=== PATIENT | female | born 1955 | race American Indian/Alaskan Native ===

== ENCOUNTER 2016-09-24 12:40 | Inpatient (IN) | payer BC ==
[2016-09-24 13:04] LABS: ADD MANUAL DIFF? NO
[2016-09-24] MEDS ORDERED: Insulin Regular 1 UNITS/0.01 ML ML IVP STA (13:15)
[2016-09-24 13:22] LABS: BASO # 0.01 K/mm3 (0.0-2.0); BASO % 0.1 % (0.0-3.0); GRAN % 85.3 % (50.0-68.0); HEMATOCRIT 43.2 % (36.0-48.0); LYMPH # 0.7 (1.2-3.4); LYMPH % 6.6 % (22.0-35.0); MEAN CELL VOLUME 97.1 fL (80.0-105.0); MEAN CORPUSCULAR HEMOGLOBIN 26.7 pg (25.0-35.0); MEAN CORPUSCULAR HGB CONC 27.5 g/dl (31.0-37.0); MONO # 0.8 (0.1-0.6); PLATELET COUNT 206 10^3/uL (120.0-450.0); RED CELL DISTRIBUTION WIDTH 17.8 % (11.5-14.5); WHITE BLOOD COUNT 10.4 10^3/ul (4.5-11.0)
[2016-09-24 13:25] LABS: ALB/GLOB RATIO 0.7 (1.1-1.8); BILIRUBIN,TOTAL 0.9 mg/dL (0.2-1.3); TOTAL PROTEIN 8.2 g/dL (5.8-8.3)
[2016-09-24 13:26] LABS: VENOUS BLOOD PH 7.06 (7.32-7.43)
[2016-09-24 13:26] LABS: INR 1.13 (0.93-1.08); PARTIAL THROMBOPLASTIN TIME 22.2 Seconds (23.7-30.8)
[2016-09-24] MEDS ORDERED: Sodium Bicarbonate (8.4%) 50 Meq Syringe IVP ONE (13:28)
--- NOTE | 2016-09-24 13:28 | RAD ---
PROCEDURE: Chest portable HISTORY: Sepsis Patient COMPARISON: None TECHNIQUE: Technique: Single view portable semi erect @ 13:12. FINDINGS: Low-lying endotracheal tube in the right mainstem bronchus. This should be retracted 5 cm for optimal placement. Volume loss/ atelectasis noted in the left lung. The right lung is hyperinflated. IMPRESSION: Low lying endotracheal tube. Communication of results: I discussed the findings directly with Dr. Gonzalez at the time of this interpretation 13:26.
[2016-09-24] MEDS ORDERED: Vancomycin 1gm in NS 250ml 250 ML IVPB STA (13:32)
[2016-09-24] MEDS ORDERED: Cefepime IV 2 gm in NS 100 ML IVPB STA (13:33)
[2016-09-24 13:39] LABS: TROPONIN I 0.06 ng/mL
[2016-09-24 13:53] LABS: POTASSIUM 7.7 mmol/L (3.6-5.0)
--- NOTE | 2016-09-24 13:55 | ED PDOC ---
Arrival/HPI - General Chief Complaint: Altered Mental Status Time Seen by Provider: 09/24/16 13:01 Historian: Patient - History of Present Illness Narrative History of Present Illness (Text): 09/24/16 13:30 Kaylee Vogt is a 61 year old female brought in by EMS, whose past medical history includes diabetes, hypertension, and LE venous stasis ulcers (Other hx is unknown), who presents to the emergency room unresponsive prior to arrival. Patient responds minimally to sternal rub. According to family, they have not heard from patient in 3 days and when they tried to see her today but she did not respond or open door. The door was broken down and patient was found unresponsive, EMS placed nasal trumpet in patient and found her finger stick to be greater than 600. EMS placed in left humerus IO line with IV fluids starting. No additional history known. PMD: unknown Time/Duration: Prior to Arrival Symptom Course: Unchanged Modifying Factors (Text): None Context: Home Past Medical History - Provider Review Nursing Documentation Reviewed: Yes - Psychiatric Hx Substance Use: No Family/Social History - Physician Review Nursing Documentation Reviewed: Yes Family/Social History: No Known Family HX Smoking Status: Unknown If Ever Smoked Hx Alcohol Use: No Hx Substance Use: No Allergies/Home Meds Allergies/Adverse Reactions: Allergies Unobtainable Allergy (Verified 09/24/16 12:41) Home Medications: Home Meds Medication Instructions Recorded Confirmed Unobtainable 09/24/16 09/24/16 Review of Systems - Review of Systems Systems not reviewed;Unavailable: Altered Mental Status Physical Exam Vital Signs Reviewed: Yes Vital Signs Temp Pulse Resp BP Pulse Ox 09/24/16 13:33 100.4 F H 09/24/16 12:44 160 H 10 L 126/81 98 Temperature: Febrile (100.4 rectal) Blood Pressure: Normal Pulse: Tachycardic Respiratory Rate: Agonal Appearance: Positive for: Ill-Appearing Mental Status: No: Alert and Oriented X 3 (Unresponsive) Finger Stick Blood Glucose: 500 - Systems Exam Head: Present: Atraumatic, Normocephalic Pupils: Present: Other (Right: 3mm, reactive Left: 4mm, reactive but sluggish) Conjunctiva: Present: Normal Mouth: Present: Dry (with vomitous material present), Other (vomitus material in posterior oropharynx on intubation) Pharnyx: No: ERYTHEMA Respiratory/Chest: Present: Decreased Breath Sounds (bilateral but equal) Cardiovascular: Present: Normal S1, S2, Tachycardic Abdomen: Present: Distention (mildly distended). No: Tenderness Lower Extremity: Present: Edema (bilateral edema with venous stasis changes), Other (superficial ulcers on bilateral anterior tibial areas) Neurological: Present: Other (GCS is 6; patient with L upper extremity twitching with possible LUE decorticate posturing). No: Speech Normal Skin: Present: Warm, Dry, Normal Color. No: Rashes Medical Decision Making ED Course and Treatment: 09/24/16 Impression: 61 year old female presents to the emergency room unresponsive prior to arrival. Differential Diagnosis included but are not limited to: DKA vs. hyperosmolar nonketotic coma vs. Sepsis vs. central neurologic event. Plan: -- EKG -- Chest, Abdomen, Pelvis CT -- Head CT w/o contrast -- VBG, Blood Culture -- Urine Culture, Urinalysis -- Labs -- Calcium Gluconate, Heparin, Humulin, Keppra, Maxipime, Diprivan, Protonix, Vancomycin -- IV Fluids -- Reassess and disposition Progress Notes: Patient brought in unresponsive and unstable - BP as low as 59/32 in the ED with very high fingerstick and dehydrated. Patient intubated given for airway protection, using Glidescope; R femoral line placed for access. Aggressive hydration started with much improvement and stabilization of blood pressure. Spoke with family to obatin additional info but unfortunately history is limited. Patient also given insulin for elevated glucose and likely hyperkalemia. Code sepsis called at 1:28 pm for elevated lactic acid (and fever , tachycardia). Given 2 amps of HCO3. 09/24/2016 13:[address] Logan for admission to hospital service. 09/24/2016 13:[address] Del Cid for admission to ICU. 09/24/16 14:42 Patient with multiple noted electrolyte abnormalities and acidosis. CT results are pending - patient will be admitted to the ICU. - Lab Interpretations Lab Results: 09/24/16 13:03 09/24/16 13:03 Lab Results 09/24/16 13:21: pO2 54, VBG pH 7.06 L*, VBG pCO2 46.0, VBG HCO3 13.0 L, VBG Total CO2 14.4 L, VBG O2 Sat (Calc) 87.6 H, VBG Base Excess -17.0 L, VBG Potassium 6.4 H*, Sodium 137.0, Chloride 104.0, Glucose > 750 H*, Lactate 3.7 H , FiO2 21.0, Venous Blood Potassium 6.4 H* 09/24/16 13:10: PT 12.2 H, INR 1.13 H, APTT 22.2 L, Phosphorus 9.1 H, Magnesium 3.3 H, Direct Bilirubin 0.9 H, Lactate Dehydrogenase 738 H, Total Creatine Kinase 4348 H, CK-MB (CK-2) 18.1 H, CK-MB (CK-2) % 0.4 L, Troponin I 0.06, NT- Pro-B Natriuret Pep 1840 H, Lipase 1654 H, Alcohol, Quantitative < 10 09/24/16 13:03: WBC 10.4, RBC 4.45, Hgb 11.9 L, Hct 43.2, MCV 97.1, MCH 26.7, MCHC 27.5 L, RDW 17.8 H, Plt Count 206, Gran % 85.3 H, Lymph % (Auto) 6.6 L, [place] % (Auto) 8.0 H, Eos % (Auto) 0.0 L, Baso % (Auto) 0.1, Gran # 8.90 H, Lymph # 0.7 L, [place] # 0.8 H, Eos # 0.0, Baso # 0.01, Sodium 138, Chloride 96 L, Potassium 7.7 H*, Carbon Dioxide 15 L, Anion Gap 35 H, BUN 92 H, Creatinine 7.1 H, Est GFR ( Amer) 7, Est GFR (Non-Af Amer) 6, Random Glucose 1399 H*, Calcium 8.0 L, Total Bilirubin 0.9, AST 42 H, ALT 11, Alkaline Phosphatase 120, Total Protein 8.2, Albumin 3.5, Globulin 4.7, Albumin/Globulin Ratio 0.7 L I have reviewed the lab results: Yes - RAD Interpretation Radiology Orders: 09/24/16 13:01 CHEST PORTABLE [RAD] Stat 09/24/16 13:08 Brain [HEAD W/O CONTRAST] [CT] Stat 09/24/16 13:31 CHEST,ABDOMEN, PELVIS W/O CONT [CT] Stat - EKG Interpretation EKG Interpretation (Text): 09/24/16 15:01 sinus tachycardia @ 158 with PVCs; normal axis, normal intervals, peaked T waves ; no old EKG for comparison - Medication Orders Current Medication Orders: Heparin Sodium (Porcine) (Heparin) 5,000 units SC Q8H EMETERIO PRN Reason: Protocol Vancomycin HCl (Vancomycin 1gm) 250 mls @ 133.333 mls/hr IVPB STAT STA PRN Reason: Protocol Stop: 09/24/16 15:24 Last Admin: 09/24/16 13:52 Dose: 133.333 MLS/HR eMAR Start Stop Document 09/24/16 13:52 [facility] (Rec: 09/24/16 13:52 [facility] [id number]) Intravenous Solution Start Date 09/24/16 Start Time 13:52 End Date 09/24/16 End time 15:32 Total Infusion Time 100 Cefepime HCl (Maxipime 2gm) 100 mls @ 100 mls/hr IVPB STAT STA PRN Reason: Protocol Stop: 09/24/16 14:32 Propofol (Diprivan) 100 mls @ 2.994 mls/hr IV .Q24H PRN; Protocol; 5 MCG/KG/MIN PRN Reason: TITRATE PER MD ORDER Insulin Human Regular 100 (units/ Sodium Chloride) 100 mls @ 4 mls/hr IV .Q24H PRN; Protocol; 4 UNITS/HR PRN Reason: TITRATE PER MD ORDER Sodium Chloride (Sodium Chloride 0.9%) 1,000 mls @ 200 mls/hr IV .Q5H EMETERIO Levetiracetam (Keppra 500mg Ivpb) 100 mls @ 400 mls/hr IVPB Q12 EMETERIO Cefepime HCl (Maxipime 1gm) 100 mls @ 100 mls/hr IVPB Q24H EMETERIO PRN Reason: Protocol Pantoprazole Sodium (Protonix Inj) 40 mg IVP DAILY EMETERIO Discontinued Medications Calcium Gluconate (Calcium Gluconate Iv) Confirm Administered Dose 1,000 mg .ROUTE .STK-MED ONE Stop: 09/24/16 13:37 Last Admin: 09/24/16 14:27 Dose: Calcium Gluconate 1,000 mg/ (Sodium Chloride) 110 mls @ 110 mls/hr IVPB ONCE ONE Stop: 09/24/16 14:29 Last Admin: 09/24/16 13:36 Dose: 110 MLS/HR eMAR Start Stop Document 09/24/16 13:36 [facility] (Rec: 09/24/16 13:37 [facility] [id number]) Intravenous Solution Start Date 09/24/16 Start Time 13:37 End Date 09/24/16 End time 14:40 Total Infusion Time 63 Insulin Human Regular (Humulin R) 10 units IVP ONCE STA Stop: 09/24/16 13:16 Last Admin: 09/24/16 13:29 Dose: 10 UNITS IVP Administration Document 09/24/16 13:29 (Rec: 09/24/16 13:29 [id number] Charges for Administration # of IVP Administrations 1 Sodium Bicarbonate (Sodium Bicarbonate (8.4%) 50 Meq Syringe) 100 meq IVP ONCE ONE Stop: 09/24/16 13:29 Last Admin: 09/24/16 13:36 Dose: 100 MEQ IVP Administration Document 09/24/16 13:36 [facility] (Rec: 09/24/16 13:36 [facility] [id number]) Charges for Administration # of IVP Administrations 1 - Scribe Statement The provider has reviewed the documentation as recorded by the Eze Whyte Provider Scribe Attestation: All medical record entries made by the Scribe were at my direction and personally dictated by me. I have reviewed the chart and agree that the record accurately reflects my personal performance of the history, physical exam, medical decision making, and the department course for this patient. I have also personally directed, reviewed, and agree with the discharge instructions and disposition. Disposition/Present on Arrival - Present on Arrival Any Indicators Present on Arrival: Yes History of DVT/PE: No History of Uncontrolled Diabetes: Yes Urinary Catheter: No History of Decub. Ulcer: No History Surgical Site Infection Following: None - Disposition Have Diagnosis and Disposition been Completed?: Yes Diagnosis: Hyperosmolar nonketotic coma in diabetes, Acidosis, Altered mental status, Sepsis, Renal failure, Rhabdomyolysis, Pancreatitis Disposition: HOSPITALIZED Disposition Time: 13:22 Patient Plan: Admission, ICU Patient Problems: Current Active Problems Problem Status Diagnosed Acidosis Acute Altered mental status Acute Hyperosmolar nonketotic coma in diabetes Acute Pancreatitis Acute Renal failure Acute Rhabdomyolysis Acute Sepsis Acute Condition: CRITICAL Endotracheal Intubation - Endotracheal Intubation Intubated With ETT Size: 7 (actually it is 7.5 but [employer] will not permit decimal placement) Blade Type Used: Curved Indication: Airway Protection Intubated: Orally Pre-Intubation Airway Assessment: Need For Airway management Did Not Allow Time , Appears To Have A difficult Airway Post-Intubation Assessment: ETT Secured AT (cm): (23), Breath Sounds Equal Bilat , Placement Confirmed Via CXR (Tube pulled back to 21 at the lip), Color Change W/End Tidal CO2 Detector, Oxygen Saturation: (100%) Central Line Placement - Central Line Placement Indication: Emergent IV Access Central Line Placement: Right: Femoral The Area Was Thoroughly Prepared With: Chlorhexidine Procedure: Triple Lumen, Placed Using Standard Seldinger Technique, Catheter Was Sewn Into Place, Sterile Dressing Placed Over Line, Procedure Tolerated Well (Central line was placed by resident Jerry Nunez under attending supervision.)
--- NOTE | 2016-09-24 14:03 | CP.PCM.HP ---
<CandeCarmen - Last Filed: 09/24/16 18:26> History of Present Illness - History of Present Illness History of Present Illness: PGY1- for Dr. Indira Rizzo&Isa Kaylee Vogt is a 61 year old female brought in by EMS, whose past medical history includes diabetes, CKD (not on HD), hypertension, and LE venous stasis ulcers, who presents to the emergency room unresponsive prior to arrival. According to family, 3 days ago, the pt communicated to family via phone that she did not feel well and her leg hurts which required her to take Advil(s). Since then, the family have not heard from patient for 3 days. The door was broken down and patient was found unresponsive sitting up on her couch. EMS placed nasal trumpet in patient and found her finger stick to be greater than 600. EMS placed in left humorous IO line with IV fluids starting. In the ED, Patient brought in unresponsive and unstable. BP was as low as 59/32 in the ED with very high fingerstick and dehydrated. Patient intubated given for airway protection, using Glidescope; R femoral line placed for access. Vomitous material present in posterior oropharynx on intubation. Aggressive hydration started with much improvement and stabilization of blood pressure. Keppra was also given in the ED. According to pt's pharmacist, who states that: Pt had many doctors Dr. Macario Paulino [phone] recent prescribe januvia 50 Qd in Apr 2016 but pt did not apple picker. Dr. Joseph Self prescribed her ferrous sulfide 325 BID, lipitor 10, Pt is also on ASA 81, Mg gluconate BID, multivitamins but her filling record has lapsed In ED, Pt has a temp 100.4, HR 160, Resp 10. One dose of vanco and cefepime was given VBG 7.06. Glucose 1399 K was 6.4, treated with insulin, ca++ She has an anion gap 27 CK 4348 trop 0.06 Lipase 1654 PMH Uncontrolled diabetes LE venous stasis ulcers CKD, not on dialysis HTN PSS Unkown [facility], 2016. 2 weeks stayed which required ICU but not intubated SH Per family, denied smoke/drink/drug Pt lives alone All Unknown Med ASA, ferrous sulfate Present on Admission - Present on Admission Any Indicators Present on Admission: Yes History of Uncontrolled Diabetes: Yes Past Patient History - Past Social History Smoking Status: Unknown If Ever Smoked - PSYCHIATRIC Hx Substance Use: No - SURGICAL HISTORY Hx Surgeries: (unable to obtain) Meds Allergies/Adverse Reactions: Allergies Allergy/AdvReac Type Severity Reaction Status Date / Time Unobtainable Allergy Verified 09/24/16 12:41 Physical Exam - Constitutional Additional comments: intubated - Head Exam Head Exam: ATRAUMATIC, NORMOCEPHALIC - Eye Exam Eye Exam: absent: PERRL (R eye reactive to light but L eye minimally reactive to light) - ENT Exam ENT Exam: Mucous Membranes Moist - Neck Exam Additional comments: supple - Respiratory Exam Respiratory Exam: Decreased Breath Sounds (No breath sound on L; bronchial breath sound on R, Intubated) - Cardiovascular Exam Cardiovascular Exam: REGULAR RHYTHM, +S1, +S2. absent: Systolic Murmur - GI/Abdominal Exam GI & Abdominal Exam: Soft - Extremities Exam Extremities exam: Positive for: pedal edema (3+ pitting. superficial ulcers on bilateral anterior tibial areas) - Neurological Exam Additional comments: Non responsive to pain - Skin Skin Exam: Dry Additional comments: Skin Cool to touch Results - Vital Signs Recent Vital Signs: Last Vital Signs Temp 100.4 F H 09/24/16 13:33 Pulse 160 H 09/24/16 12:44 Resp 10 L 09/24/16 12:44 BP 126/81 09/24/16 12:44 Pulse Ox 98 09/24/16 12:44 - Labs Result Diagrams: 09/24/16 13:03 09/24/16 15:30 Assessment & Plan - Assessment and Plan (Free Text) Plan: 61F with poorly controlled diabetes and CKD not on dialysis was brought in by EMS for altered mental status. AMS possibly due to DKA - IVF, Insulin drip, serial finger sticks, A1c, diabetes education ORI on CKD Sepsis - VBG lactate, blood/urine/wound culture, r/o aspiration pna, MRSA screen, procalc, cefepime. 1 dose vanco given Overdose - urine drug screen, blood alcohol level AR? - Repeat EKG no sig change, echocardiogram CVA - CT-head Post-ictal - EEG, neurol consult, Keppra ORI on CKD - IVF - Nephro - Ueos Corrected Na 169 - Urine electrolyes - Urine and serum osm Hx of IDDM-2 - A1C - Diabetic education Elevated Lipase Elevated LFT - Serial Lipase q8h - Abdominal U/S Rhabdomyolysis - IVF Ulcers b/l leg - wound care - if needed, surgery consult Heparin 500SC q8 S/R/D/w Dr. Jacobson - Date & Time Date: 09/24/16 Time: 16:49 <Sybil Jacobson MD - Last Filed: 09/25/16 10:39> Results - Vital Signs Recent Vital Signs: Last Vital Signs Temp 98 F 09/25/16 06:37 Pulse 109 H 09/25/16 09:01 Resp 25 H 09/25/16 00:00 BP 131/91 H 09/25/16 09:01 Pulse Ox 100 09/25/16 09:01 - Labs Result Diagrams: 09/25/16 05:05 09/25/16 05:05 Labs: Laboratory Results - last 24 hr 09/24/16 09/24/16 09/24/16 14:06 15:20 15:30 WBC RBC Hgb Hct MCV MCH MCHC RDW Plt Count MPV Gran % Lymph % (Auto) [place] % (Auto) Eos % (Auto) Baso % (Auto) Gran # Lymph # [place] # Eos # Baso # pCO2 pO2 47 HCO3 ABG pH ABG Total CO2 ABG O2 Saturation ABG Base Excess ABG Carboxyhemoglobin 2.6 H POC ABG HHb (Measured) 13.1 H ABG Methemoglobin 1.0 ABG Potassium VBG pH 7.14 L* VBG pCO2 47.0 VBG HCO3 16.0 L VBG Total CO2 17.4 L VBG O2 Sat (Calc) 86.4 H VBG Base Excess -12.7 L VBG Hgb O2 Saturation 83.3 L VBG Potassium 4.8 Hemoglobin 11.5 L Sodium 145 Chloride 106 Glucose > 750 H* Lactate 3.2 H Mechanical Rate FiO2 21.0 Tidal Volume PEEP Potassium 4.8 Carbon Dioxide 18 L Anion Gap 26 H BUN 89 H Creatinine 6.2 H Est GFR ( Amer) 8 Est GFR (Non-Af Amer) 7 POC Glucose (mg/dL) > 500 H* Random Glucose 1119 H* D Serum Osmolality Calcium 7.3 L Ammonia < 9 L Troponin I 0.05 C-React Prot High Sens > 15.00 H Lipase 2525 H Procalcitonin 2.28 H Arterial Blood Potassium Venous Blood Potassium 4.8 Urine Color Yellow Urine Appearance Clear Urine pH 6.0 Ur Specific [place] 1.015 Urine Protein Trace H Urine Glucose (UA) >=1000 Urine Ketones Negative Urine Blood Small H Urine Nitrate Negative Urine Bilirubin Negative Urine Urobilinogen 0.2 Ur Leukocyte Esterase Negative Urine RBC 0 - 2 Urine WBC 0 - 2 Ur Epithelial Cells 10 - 12 Urine Bacteria Few Urine Eosinophils Urine Osmolality Ur Random Sodium Ur Random Potassium Urine Opiates Screen Negative Urine Methadone Screen Negative Ur Barbiturates Screen Negative Ur Phencyclidine Scrn Negative Ur Amphetamines Screen Negative U Benzodiazepines Scrn Negative U Oth Cocaine Metabols Negative U Cannabinoids Screen Negative 09/24/16 09/24/16 09/24/16 16:00 16:23 17:00 WBC RBC Hgb Hct MCV MCH MCHC RDW Plt Count MPV Gran % Lymph % (Auto) [place] % (Auto) Eos % (Auto) Baso % (Auto) Gran # Lymph # [place] # Eos # Baso # pCO2 44 pO2 91.0 HCO3 15.7 L ABG pH 7.16 L* ABG Total CO2 17.1 L ABG O2 Saturation 98.0 ABG Base Excess -12.6 L ABG Carboxyhemoglobin POC ABG HHb (Measured) ABG Methemoglobin ABG Potassium 3.5 L VBG pH VBG pCO2 VBG HCO3 VBG Total CO2 VBG O2 Sat (Calc) VBG Base Excess VBG Hgb O2 Saturation VBG Potassium Hemoglobin Sodium 147.0 Chloride 115.0 H Glucose > 750 H* Lactate 2.8 H Mechanical Rate 16 FiO2 50.0 Tidal Volume 400 PEEP 5 Potassium Carbon Dioxide Anion Gap BUN Creatinine Est GFR ( Amer) Est GFR (Non-Af Amer) POC Glucose (mg/dL) > 500 H* Random Glucose Serum Osmolality 401 H Calcium Ammonia Troponin I C-React Prot High Sens Lipase Procalcitonin Arterial Blood Potassium 3.5 L Venous Blood Potassium Urine Color Urine Appearance Urine pH Ur Specific [place] Urine Protein Urine Glucose (UA) Urine Ketones Urine Blood Urine Nitrate Urine Bilirubin Urine Urobilinogen Ur Leukocyte Esterase Urine RBC Urine WBC Ur Epithelial Cells Urine Bacteria Urine Eosinophils Urine Osmolality Ur Random Sodium Ur Random Potassium Urine Opiates Screen Urine Methadone Screen Ur Barbiturates Screen Ur Phencyclidine Scrn Ur Amphetamines Screen U Benzodiazepines Scrn U Oth Cocaine Metabols U Cannabinoids Screen 09/24/16 09/24/16 09/24/16 17:07 18:00 18:10 WBC RBC Hgb Hct MCV MCH MCHC RDW Plt Count MPV Gran % Lymph % (Auto) [place] % (Auto) Eos % (Auto) Baso % (Auto) Gran # Lymph # [place] # Eos # Baso # pCO2 pO2 HCO3 ABG pH ABG Total CO2 ABG O2 Saturation ABG Base Excess ABG Carboxyhemoglobin POC ABG HHb (Measured) ABG Methemoglobin ABG Potassium VBG pH VBG pCO2 VBG HCO3 VBG Total CO2 VBG O2 Sat (Calc) VBG Base Excess VBG Hgb O2 Saturation VBG Potassium Hemoglobin Sodium Chloride Glucose Lactate Mechanical Rate FiO2 Tidal Volume PEEP Potassium Carbon Dioxide Anion Gap BUN Creatinine Est GFR ( Amer) Est GFR (Non-Af Amer) POC Glucose (mg/dL) 327 H > 500 H* Random Glucose Serum Osmolality Calcium Ammonia Troponin I C-React Prot High Sens Lipase Procalcitonin Arterial Blood Potassium Venous Blood Potassium Urine Color Urine Appearance Urine pH Ur Specific [place] Urine Protein Urine Glucose (UA) Urine Ketones Urine Blood Urine Nitrate Urine Bilirubin Urine Urobilinogen Ur Leukocyte Esterase Urine RBC Urine WBC Ur Epithelial Cells Urine Bacteria Urine Eosinophils Neg Urine Osmolality 443 Ur Random Sodium 23 Ur Random Potassium 31.6 Urine Opiates Screen Urine Methadone Screen Ur Barbiturates Screen Ur Phencyclidine Scrn Ur Amphetamines Screen U Benzodiazepines Scrn U Oth Cocaine Metabols U Cannabinoids Screen 09/24/16 09/24/16 09/24/16 19:18 20:23 20:45 WBC RBC Hgb Hct MCV MCH MCHC RDW Plt Count MPV Gran % Lymph % (Auto) [place] % (Auto) Eos % (Auto) Baso % (Auto) Gran # Lymph # [place] # Eos # Baso # pCO2 pO2 175 H HCO3 ABG pH ABG Total CO2 ABG O2 Saturation ABG Base Excess ABG Carboxyhemoglobin POC ABG HHb (Measured) ABG Methemoglobin ABG Potassium VBG pH 7.23 L VBG pCO2 42.0 VBG HCO3 17.6 L VBG Total CO2 18.9 L VBG O2 Sat (Calc) 99.0 H VBG Base Excess -9.6 L VBG Hgb O2 Saturation VBG Potassium 3.1 L Hemoglobin Sodium 152 H Chloride 116 H Glucose 550 H* D Lactate 4.8 H* Mechanical Rate FiO2 21.0 Tidal Volume PEEP Potassium 3.2 L Carbon Dioxide 20 L Anion Gap 19 BUN 90 H Creatinine 5.7 H Est GFR ( Amer) 9 Est GFR (Non-Af Amer) 8 POC Glucose (mg/dL) > 500 H* > 500 H* Random Glucose 529 H* D Serum Osmolality Calcium 7.6 L Ammonia Troponin I C-React Prot High Sens Lipase Procalcitonin Arterial Blood Potassium Venous Blood Potassium 3.1 L Urine Color Urine Appearance Urine pH Ur Specific [place] Urine Protein Urine Glucose (UA) Urine Ketones Urine Blood Urine Nitrate Urine Bilirubin Urine Urobilinogen Ur Leukocyte Esterase Urine RBC Urine WBC Ur Epithelial Cells Urine Bacteria Urine Eosinophils Urine Osmolality Ur Random Sodium Ur Random Potassium Urine Opiates Screen Urine Methadone Screen Ur Barbiturates Screen Ur Phencyclidine Scrn Ur Amphetamines Screen U Benzodiazepines Scrn U Oth Cocaine Metabols U Cannabinoids Screen 09/24/16 09/24/16 09/24/16 21:18 22:04 22:45 WBC RBC Hgb Hct MCV MCH MCHC RDW Plt Count MPV Gran % Lymph % (Auto) [place] % (Auto) Eos % (Auto) Baso % (Auto) Gran # Lymph # [place] # Eos # Baso # pCO2 pO2 95 H HCO3 ABG pH ABG Total CO2 ABG O2 Saturation ABG Base Excess ABG Carboxyhemoglobin POC ABG HHb (Measured) ABG Methemoglobin ABG Potassium VBG pH 7.26 L VBG pCO2 38.0 L VBG HCO3 17.1 L VBG Total CO2 18.3 L VBG O2 Sat (Calc) 98.3 H VBG Base Excess -9.3 L VBG Hgb O2 Saturation VBG Potassium 3.1 L Hemoglobin Sodium 152.0 H Chloride 123.0 H Glucose 340 H Lactate 4.3 H* Mechanical Rate FiO2 21.0 Tidal Volume PEEP Potassium Carbon Dioxide Anion Gap BUN Creatinine Est GFR ( Amer) Est GFR (Non-Af Amer) POC Glucose (mg/dL) 438 H* > 500 H* Random Glucose Serum Osmolality Calcium Ammonia Troponin I C-React Prot High Sens Lipase 1620 H Procalcitonin Arterial Blood Potassium Venous Blood Potassium 3.1 L Urine Color Urine Appearance Urine pH Ur Specific [place] Urine Protein Urine Glucose (UA) Urine Ketones Urine Blood Urine Nitrate Urine Bilirubin Urine Urobilinogen Ur Leukocyte Esterase Urine RBC Urine WBC Ur Epithelial Cells Urine Bacteria Urine Eosinophils Urine Osmolality Ur Random Sodium Ur Random Potassium Urine Opiates Screen Urine Methadone Screen Ur Barbiturates Screen Ur Phencyclidine Scrn Ur Amphetamines Screen U Benzodiazepines Scrn U Oth Cocaine Metabols U Cannabinoids Screen 09/24/16 09/25/16 09/25/16 23:03 00:04 01:05 WBC RBC Hgb Hct MCV MCH MCHC RDW Plt Count MPV Gran % Lymph % (Auto) [place] % (Auto) Eos % (Auto) Baso % (Auto) Gran # Lymph # [place] # Eos # Baso # pCO2 pO2 HCO3 ABG pH ABG Total CO2 ABG O2 Saturation ABG Base Excess ABG Carboxyhemoglobin POC ABG HHb (Measured) ABG Methemoglobin ABG Potassium VBG pH VBG pCO2 VBG HCO3 VBG Total CO2 VBG O2 Sat (Calc) VBG Base Excess VBG Hgb O2 Saturation VBG Potassium Hemoglobin Sodium 157 H* Chloride 122 H Glucose Lactate Mechanical Rate FiO2 Tidal Volume PEEP Potassium 3.2 L Carbon Dioxide 22 Anion Gap 16 BUN 89 H Creatinine 5.9 H Est GFR ( Amer) 9 Est GFR (Non-Af Amer) 7 POC Glucose (mg/dL) 431 H* 294 H Random Glucose 163 H Serum Osmolality Calcium 7.8 L Ammonia Troponin I C-React Prot High Sens Lipase Procalcitonin Arterial Blood Potassium Venous Blood Potassium Urine Color Urine Appearance Urine pH Ur Specific [place] Urine Protein Urine Glucose (UA) Urine Ketones Urine Blood Urine Nitrate Urine Bilirubin Urine Urobilinogen Ur Leukocyte Esterase Urine RBC Urine WBC Ur Epithelial Cells Urine Bacteria Urine Eosinophils Urine Osmolality Ur Random Sodium Ur Random Potassium Urine Opiates Screen Urine Methadone Screen Ur Barbiturates Screen Ur Phencyclidine Scrn Ur Amphetamines Screen U Benzodiazepines Scrn U Oth Cocaine Metabols U Cannabinoids Screen 09/25/16 09/25/16 09/25/16 01:08 03:03 03:07 WBC RBC Hgb Hct MCV MCH MCHC RDW Plt Count MPV Gran % Lymph % (Auto) [place] % (Auto) Eos % (Auto) Baso % (Auto) Gran # Lymph # [place] # Eos # Baso # pCO2 pO2 HCO3 ABG pH ABG Total CO2 ABG O2 Saturation ABG Base Excess ABG Carboxyhemoglobin POC ABG HHb (Measured) ABG Methemoglobin ABG Potassium VBG pH VBG pCO2 VBG HCO3 VBG Total CO2 VBG O2 Sat (Calc) VBG Base Excess VBG Hgb O2 Saturation VBG Potassium Hemoglobin Sodium Chloride Glucose Lactate Mechanical Rate FiO2 Tidal Volume PEEP Potassium Carbon Dioxide Anion Gap BUN Creatinine Est GFR ( Amer) Est GFR (Non-Af Amer) POC Glucose (mg/dL) 219 H 152 H 160 H Random Glucose Serum Osmolality Calcium Ammonia Troponin I C-React Prot High Sens Lipase Procalcitonin Arterial Blood Potassium Venous Blood Potassium Urine Color Urine Appearance Urine pH Ur Specific [place] Urine Protein Urine Glucose (UA) Urine Ketones Urine Blood Urine Nitrate Urine Bilirubin Urine Urobilinogen Ur Leukocyte Esterase Urine RBC Urine WBC Ur Epithelial Cells Urine Bacteria Urine Eosinophils Urine Osmolality Ur Random Sodium Ur Random Potassium Urine Opiates Screen Urine Methadone Screen Ur Barbiturates Screen Ur Phencyclidine Scrn Ur Amphetamines Screen U Benzodiazepines Scrn U Oth Cocaine Metabols U Cannabinoids Screen 09/25/16 09/25/16 09/25/16 04:03 04:10 05:05 WBC 10.7 RBC 4.39 Hgb 11.8 L Hct 36.9 MCV 84.1 MCH 26.9 MCHC 32.0 RDW 15.5 H Plt Count 150 MPV 12.7 H Gran % 75.2 H Lymph % (Auto) 16.1 L [place] % (Auto) 8.6 H Eos % (Auto) 0.0 L Baso % (Auto) 0.1 Gran # 8.06 H Lymph # 1.7 [place] # 0.9 H Eos # 0.0 Baso # 0.01 pCO2 pO2 73 H HCO3 ABG pH ABG Total CO2 ABG O2 Saturation ABG Base Excess ABG Carboxyhemoglobin POC ABG HHb (Measured) ABG Methemoglobin ABG Potassium VBG pH 7.30 L VBG pCO2 38.0 L VBG HCO3 18.7 L VBG Total CO2 19.9 L VBG O2 Sat (Calc) 96.9 H VBG Base Excess -7.1 L VBG Hgb O2 Saturation VBG Potassium 3.3 L Hemoglobin Sodium 152.0 H 156 H* Chloride 125.0 H 120 H Glucose 145 H Lactate 2.9 H Mechanical Rate FiO2 21.0 Tidal Volume PEEP Potassium 3.4 L Carbon Dioxide 21 Anion Gap 18 BUN 87 H Creatinine 5.7 H Est GFR ( Amer) 9 Est GFR (Non-Af Amer) 8 POC Glucose (mg/dL) 113 H Random Glucose 147 H Serum Osmolality Calcium 7.9 L Ammonia Troponin I C-React Prot High Sens Lipase Procalcitonin Arterial Blood Potassium Venous Blood Potassium 3.3 L Urine Color Urine Appearance Urine pH Ur Specific [place] Urine Protein Urine Glucose (UA) Urine Ketones Urine Blood Urine Nitrate Urine Bilirubin Urine Urobilinogen Ur Leukocyte Esterase Urine RBC Urine WBC Ur Epithelial Cells Urine Bacteria Urine Eosinophils Urine Osmolality Ur Random Sodium Ur Random Potassium Urine Opiates Screen Urine Methadone Screen Ur Barbiturates Screen Ur Phencyclidine Scrn Ur Amphetamines Screen U Benzodiazepines Scrn U Oth Cocaine Metabols U Cannabinoids Screen 09/25/16 09/25/16 09/25/16 05:38 06:08 07:20 WBC RBC Hgb Hct MCV MCH MCHC RDW Plt Count MPV Gran % Lymph % (Auto) [place] % (Auto) Eos % (Auto) Baso % (Auto) Gran # Lymph # [place] # Eos # Baso # pCO2 pO2 HCO3 ABG pH ABG Total CO2 ABG O2 Saturation ABG Base Excess ABG Carboxyhemoglobin POC ABG HHb (Measured) ABG Methemoglobin ABG Potassium VBG pH VBG pCO2 VBG HCO3 VBG Total CO2 VBG O2 Sat (Calc) VBG Base Excess VBG Hgb O2 Saturation VBG Potassium Hemoglobin Sodium Chloride Glucose Lactate Mechanical Rate FiO2 Tidal Volume PEEP Potassium Carbon Dioxide Anion Gap BUN Creatinine Est GFR ( Amer) Est GFR (Non-Af Amer) POC Glucose (mg/dL) 100 123 H 147 H Random Glucose Serum Osmolality Calcium Ammonia Troponin I C-React Prot High Sens Lipase Procalcitonin Arterial Blood Potassium Venous Blood Potassium Urine Color Urine Appearance Urine pH Ur Specific [place] Urine Protein Urine Glucose (UA) Urine Ketones Urine Blood Urine Nitrate Urine Bilirubin Urine Urobilinogen Ur Leukocyte Esterase Urine RBC Urine WBC Ur Epithelial Cells Urine Bacteria Urine Eosinophils Urine Osmolality Ur Random Sodium Ur Random Potassium Urine Opiates Screen Urine Methadone Screen Ur Barbiturates Screen Ur Phencyclidine Scrn Ur Amphetamines Screen U Benzodiazepines Scrn U Oth Cocaine Metabols U Cannabinoids Screen Attending/Attestation - Attestation I have personally seen and examined this patient.: Yes I have fully participated in the care of the patient.: Yes I have reviewed all pertinent clinical information: Yes Notes (Text): Patient was seen and examined with bio medical technician .Agreed with resident assessment and plan. 61 F with PMH of Morbid Obesity,HTN, IRDM, Chronic kidney disease,base line creatinin unknown was admitted with change of mental status , unresponsiveness , lasy time was seen by family 2 days back found to have DKA, acute on chronic renal failure, hypekalemia, sepsis likely due to infected right leg ulcer, was intubated in ER, was hypotensive, was given fluid bolus.Patient also had atelelectasis of left lung due to right bronchus intubation. Agreed with IV hydration, insulin drip , and IV antibiotics, We will monitor, blood sugar, BUN and creatinin and electrolyte. We will follow up Nephrology and Podiatry consult. Patient is admitted in ICU. Management plan was discussed in detail with patient family. Education was provided. Prognosis is guarded.
[2016-09-24 14:07] LABS: BILIRUBIN,DIRECT 0.9 mg/dL (0.0-0.4); MAGNESIUM 3.3 mg/dL (1.7-2.2); PHOSPHOROUS 9.1 mg/dL (2.5-4.5)
--- NOTE | 2016-09-24 14:07 | PCM.SEPTIC ---
Sepsis Progress Note - Reassessment Type Reassessment Type: Non-invasive reassessment - Non Invasive Reassessment Were the most recent vital sign reviewed: Yes Vital Sign (Latest): Temp Pulse Resp BP Pulse Ox 100.4 F H 160 H 10 L 126/81 98 09/24/16 13:33 09/24/16 12:44 09/24/16 12:44 09/24/16 12:44 09/24/16 12:44 Cardiovascular: Yes: Regular Rate, Rhythm, Tachycardia Respiratory: Yes: Decreased Breath Sounds Capillary Refill: Delayed Pulses: Decreased Radial, Decreased Dorsalis Pedis, Decreased Posterior Tibialis Skin: Dry
[2016-09-24 14:18] LABS: URINE BILIRUBIN NEGATIVE (NEGATIVE); URINE BLOOD SMALL (NEGATIVE); URINE GLUCOSE (UA) >=1000 mg/dL (NEGATIVE); URINE KETONE NEGATIVE (NEGATIVE); URINE LEUKOCYTE ESTERASE NEGATIVE Leu/uL (NEGATIVE); URINE PROTEIN TRACE mg/dL (<30 mg/dL); URINE UROBILINOGEN 0.2 E.U./dL (<1 E.U./dL)
[2016-09-24 14:19] LABS: URINE APPEARANCE CLEAR (CLEAR); URINE COLOR YELLOW (YELLOW)
[2016-09-24 14:46] LABS: URINE BACTERIA FEW (NEG); URINE RBC 0 - 2 /hpf (0-2); URINE WBC 0 - 2 /hpf (0-6)
--- NOTE | 2016-09-24 15:01 | CT ---
PROCEDURE: CT HEAD WITHOUT CONTRAST. HISTORY: unresponsive COMPARISON: None available. TECHNIQUE: Axial computed tomography images were obtained through the head/brain without intravenous contrast. Radiation dose: Total exam DLP = 823.56 mGy-cm. FINDINGS: HEMORRHAGE: No intracranial hemorrhage. BRAIN: No mass effect or edema. No atrophy or chronic microvascular ischemic changes. VENTRICLES: Unremarkable. No hydrocephalus. CALVARIUM: Unremarkable. PARANASAL SINUSES: Unremarkable as visualized. No significant inflammatory changes. MASTOID AIR CELLS: Unremarkable as visualized. No inflammatory changes. OTHER FINDINGS: None. IMPRESSION: No acute intracranial abnormalities. No significant findings to account for the clinical presentation.
--- NOTE | 2016-09-24 15:11 | CT ---
PROCEDURE: CT Chest, Abdomen and Pelvis without intravenous contrast HISTORY: unresponsive, sepsis COMPARISON: None. TECHNIQUE: Unenhanced study. Neither oral nor intravenous contrast administered. Sensitivity and specificity for acute inflammatory processes limited by the absence of oral and intravenous contrast. Radiation dose: Total exam DLP = 1273.81 mGy-cm. FINDINGS: CT CHEST WITHOUT CONTRAST: LUNGS: Complete collapse of the left lung likely related to the endotracheal tube residing in the right mainstem bronchus. No visible endobronchial lesions identified. Compensatory hyperinflation of the right lung. No pulmonary nodules, masses or infiltrates in the right lung. MEDIASTINUM: Unremarkable. Normal caliber aorta and pulmonary arterial trunk. Normal size heart. LYMPH NODES: Unremarkable. PLEURA: Unremarkable. No pneumothorax. No pleural fluid. BONES: Unremarkable. OTHER FINDINGS: None. CT ABDOMEN AND PELVIS: LIVER: Unremarkable. No gross lesion or ductal dilatation. GALLBLADDER AND BILE DUCTS: Unremarkable. PANCREAS: Unremarkable. No gross lesion or ductal dilatation. SPLEEN: Unremarkable. ADRENALS: Enlarged left adrenal gland 3.9 x 4 cm with fatty elements and punctate calcifications likely myelolipoma or variant thereof. Adjacent surgical clips likely represent prior biopsy. Unremarkable right adrenal gland. KIDNEYS AND URETERS: Unremarkable. No hydronephrosis. No solid mass. VASCULATURE: Unremarkable. No aortic aneurysm. BOWEL: Unremarkable. No obstruction. No gross mural thickening. APPENDIX: Normal appendix. PERITONEUM: Unremarkable. No free fluid. No free air. LYMPH NODES: Unremarkable. No enlarged lymph nodes. BLADDER: Inman catheter identified in the urinary bladder. No focal bladder abnormalities. REPRODUCTIVE: Unremarkable. BONES: No acute fracture. OTHER FINDINGS: None. IMPRESSION: Low lying endotracheal tube the tip well within the right mainstem bronchus. Presumed secondary complete collapse of the left lung. No acute findings in the abdomen retroperitoneum or pelvis. Additional benign and/or incidental findings described above.
[2016-09-24] MEDS: Insulin Regular 100 UNITS in Sodium Chloride 0.9% 99 ML IV PRN ×2 (15:27→23:19)
[2016-09-24] MEDS: Sodium Chloride 0.9% 1,000 ML IV SCH ×2 (15:30→21:31)
[2016-09-24 15:53] LABS: BLOOD GAS HEMOGLOBIN 11.5 g/dL (11.7-17.4); CARBOXYHEMOGLOBIN 2.6 % (0.5-1.5); HHB 13.1 % (0-5); VENOUS BLOOD GAS BASE EXCESS -12.7 mmol/L (0.0-2.0); VENOUS BLOOD HGB O2 SAT 83.3 % (95.0-98.0); VENOUS BLOOD PH 7.14 (7.32-7.43)
[2016-09-24 16:00] LABS: CALCIUM 7.3 mg/dL (8.4-10.5); POTASSIUM 4.8 mmol/L (3.6-5.0)
--- NOTE | 2016-09-24 16:11 | CARD ---
APPROVED REPORT EKG Measurement Heart [id number] <Conclusion> Sinus tachycardia with premature supraventricular complexes with frequent premature ventricular complexes Inferior infarct, age undetermined Peaked T waves, consider HyperKalemia Abnormal ECG
[2016-09-24 16:12] LABS: TROPONIN I 0.05 ng/mL
--- NOTE | 2016-09-24 16:42 | RAD ---
PROCEDURE: Chest portable HISTORY: L. lobar atelectasis COMPARISON: September 24, 2016. TECHNIQUE: Technique: Sequential portable semi erect @ 16:12, 16:14. FINDINGS: Endotracheal tube tip now at the bats[place]va still directed towards the right mainstem bronchus. However, there is improved aeration, marked re-expansion of the left lung compared to the prior study. IMPRESSION: Endotracheal tube tip now at the batsheva with improved aeration of the left lung. Comparison was made to the prior study to be a 13:12.
[2016-09-24 17:12] LABS: ABG MECHANICAL RATE 16; ARTERIAL BLOOD GAS HCO3 15.7 mmol/L (21-28); ATERIAL BLOOD GAS PEEP 5
[2016-09-24 17:13] LABS: ARTERIAL BLOOD GAS PH 7.16 (7.35-7.45)
--- NOTE | 2016-09-24 17:30 | CON ---
DATE: 09/24/2016 HISTORY OF PRESENT ILLNESS: This is a 61-year-old lady with history of diabetes, hypertension, bilateral lower extremities venous stasis who was brought into Emergency Room after found unresponsive in her own home by EMS. According to family, the last time they saw her well, about 3 days ago, and none of them were in contact with her over the period of time afterward. The patient is intubated and family was not present when the patient passed out. No further history about medications, past medical history is available. Reportedly, the patient does not smoke, does not drink alcohol or use illicit drugs. The patient also was found to have a blood glucose more than 700. Septic workup as well as treatment of hyperkalemia was initiated. IV fluid started and code sepsis was called. PAST MEDICAL HISTORY: Diabetes, hypertension, lower extremity venous stasis ulcer/cellulitis. FAMILY HISTORY: Noncontributory. SOCIAL HISTORY: No alcohol or illicit drug abuse. No tobacco smoking. MEDICATIONS AT HOME: Unobtainable. ALLERGIES: NKDA. REVIEW OF SYSTEMS: Revealed 12 organ system other than mentioned in history of present illness is negative. PHYSICAL EXAMINATION: VITAL SIGNS: Temperature 100.4, heart rate 130, blood pressure 159/70, oxygen saturation 99% on 100% FIO2. HEAD AND NECK: Atraumatic. LUNGS: Clear to auscultation bilaterally. HEART: Regular rate and rhythm. S1, S2 normal. ABDOMEN: Soft, nontender, nondistended. MUSCULOSKELETAL: Acute on chronic cellulitis in both lower extremities, right more than left. NEUROLOGIC: The patient was sedated for intubation and was not observed more than upper or lower extremities. SKIN: Moist. PSYCHIATRIC: The patient is sedated. LABORATORY DATA: WBC 10.4, hemoglobin 11.9, platelet count 206. Sodium 138, potassium 7.7, chloride 96, carbon dioxide 15, BUN 92, creatinine 7.1, glucose 1399. Phosphorus 9.1, magnesium 3.3, bilirubin 0.9, AST 42, ALT 11. CPK 4348. Troponin 0.06. ProBNP 1840, lipase 1654. EKG did not show any acute specific signs of ischemia. CT of the chest, abdomen and pelvis right mainstem intubation and subsequent collapse of the left lung (RT was called and requested to pull up endotracheal tube by 5 cm). Chest x-ray will be also repeated afterward. 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 Adjacent surgical clips likely represents prior biopsy, unremarkable right adrenal glands. Unremarkable kidneys and ureters, no hydronephrosis. Bowel unremarkable, no obstruction, no gross mural thickening. No free air or free fluid in peritoneum. Head CT showed no acute intracranial pathology. ASSESSMENT AND PLAN: This is a 61-year-old lady who presented with unresponsiveness in the setting of wide range metabolic disturbances and severely elevated glucose level. At the same time, patient had no ketones in the urine and urine was negative for nitrites and leukocyte esterase. The patient also has severe metabolic acidosis, moderately elevated CPK, most likely secondary to prolonged period of immobilization. She also has chemical pancreatitis with lipase of 1654. Her CAT scan of the abdomen did not reveal any corresponding radiographic abnormalities in this regard. Troponin x 1 negative. No specific ischemic changes on EKG. The fact that the patient is hemodynamically stable argues against cardiogenic shock. We will repeat second troponin level and will do echocardiogram as well. Possibility of infection triggering her hyperosmolar nonketotic coma cannot be discarded even in the absence of clearcut source. The patient will be started on broad-spectrum antibiotics after blood and urine culture sent. Will get a procalcitonin level which might be erroneously elevated in the setting of severe acute kidney injury , but then patient is anyway on abx. Acute kidney injury, most likely secondary to acute tubular necrosis in the setting of intravascular hypovolemia and hyperosmolar nonketotic coma. We will proceed with aggressive fluid resuscitation and serial BNP, lactic acid and lipase as well as CPK to ascertain resolution and improvement of acute kidney injury, rhabdomyolysis. Inman catheter will be placed and urine output will be monitored with the goal of more than 0.5 mL per kilogram per hour. The patient will be started on insulin drip and Accu-Cheks will be checked every 1 hour. Once anion gap is closed the patient will be switched to longer acting formulation of insulin. The patient had some myoclonic jerking movements upon initial presentation and evaluation. I cannot rule out seizures. Thus, the patient will be on propofol while intubated and I will start patient on Keppra 500 mg IV q. 12. Neurology consult will be requested. EEG will be requested. CAT scan results showed no acute intracranial pathology. Substantial tachycardia, most likely due to intravascular hypovolemia, which is being treated with normal saline at 200 mL per hour at present time. CT abdomen and pelvis is appreciated, no catastrophic findings or findings that would account for severe sepsis described in the official report. Endotracheal tube will be pulled up. Chest x -ray will be rechecked to ascertain reexpansion of the left lung. We will also follow ABG and adjust ventilator settings accordingly. We will continue with protective lung ventilation strategy to avoid ventilated induced lung injury. I will continue with deep venous thrombosis and gastrointestinal prophylaxis. We will continue with head of bed elevated more than 35 degrees. ccm time 40 min Charlie Del Cid MD cc: [id number] TT: 09/24/2016 17:30:24 Confirmation # [id number] Dictation # [id number] jn MTDD
[2016-09-24] MEDS ORDERED: Potassium Chloride 10 mEq 100 ML IVPB ONE (18:26)
[2016-09-24 18:29] VITALS: BMI 37.0
[2016-09-24] MEDS: Silver Sulfadiazine 1% Cream (20 gm) TOP SCH (19:30)
[2016-09-24 21:05] LABS: VENOUS BLOOD GAS BASE EXCESS -9.6 mmol/L (0.0-2.0); VENOUS BLOOD PH 7.23 (7.32-7.43)
[2016-09-24 21:22] LABS: CALCIUM 7.6 mg/dL (8.4-10.5); POTASSIUM 3.2 mmol/L (3.6-5.0)
[2016-09-24] MEDS: levETIRAcetam 500mg IVPB 100 ML IVPB SCH (21:30)
[2016-09-24 22:55] LABS: VENOUS BLOOD GAS BASE EXCESS -9.3 mmol/L (0.0-2.0); VENOUS BLOOD PH 7.26 (7.32-7.43)
[2016-09-25 01:23] LABS: CALCIUM 7.8 mg/dL (8.4-10.5); POTASSIUM 3.2 mmol/L (3.6-5.0)
[2016-09-25] MEDS ORDERED: Dextrose 5%/0.45% NS 1,000 ML IV SCH (01:30)
[2016-09-25 04:23] LABS: VENOUS BLOOD GAS BASE EXCESS -7.1 mmol/L (0.0-2.0)
[2016-09-25 05:15] LABS: ADD MANUAL DIFF? NO
[2016-09-25 05:19] LABS: BASO # 0.01 K/mm3 (0.0-2.0); BASO % 0.1 % (0.0-3.0); GRAN # 8.06 (1.4-6.5); GRAN % 75.2 % (50.0-68.0); HEMATOCRIT 36.9 % (36.0-48.0); LYMPH # 1.7 (1.2-3.4); LYMPH % 16.1 % (22.0-35.0); MEAN CELL VOLUME 84.1 fL (80.0-105.0); MEAN CORPUSCULAR HEMOGLOBIN 26.9 pg (25.0-35.0); MEAN PLATELET VOLUME 12.7 fl (7.0-11.0); MONO # 0.9 (0.1-0.6); MONO % 8.6 % (1.0-6.0); PLATELET COUNT 150 10^3/uL (120.0-450.0); RED CELL DISTRIBUTION WIDTH 15.5 % (11.5-14.5); WHITE BLOOD COUNT 10.7 10^3/ul (4.5-11.0)
[2016-09-25 05:28] LABS: CALCIUM 7.9 mg/dL (8.4-10.5); POTASSIUM 3.4 mmol/L (3.6-5.0)
[2016-09-25] MEDS: Insulin Regular 100 UNITS in Sodium Chloride 0.9% 99 ML IV PRN (05:36)
[2016-09-25] MEDS: Cefepime 1gm in NS 100ml 100 ML IVPB SCH (09:44)
[2016-09-25] MEDS: levETIRAcetam 500mg IVPB 100 ML IVPB SCH ×2 (09:44→21:26)
[2016-09-25] MEDS: Silver Sulfadiazine 1% Cream (20 gm) TOP SCH ×2 (10:17→18:25)
[2016-09-25 11:23] LABS: VENOUS BLOOD PH 7.24 (7.32-7.43)
[2016-09-25 11:41] LABS: CALCIUM 7.9 mg/dL (8.4-10.5); POTASSIUM 3.4 mmol/L (3.6-5.0)
--- NOTE | 2016-09-25 11:42 | RAD ---
PROCEDURE: Portable chest HISTORY: evaluate ETT placement COMPARISON: September 24, 2016. TECHNIQUE: Technique: Single view portable semi erect @ 20:10. FINDINGS: Satisfactory repositioning of endotracheal tube. Improved aeration left lung. Nasogastric tube in satisfactory position. IMPRESSION: Endotracheal tube in satisfactory position compared to prior studies. Continued improved aeration left lung.
--- NOTE | 2016-09-25 11:53 | PN ---
DATE: 09/25/2016 The patient is seen and examined at bedside. She is sedated with propofol. She is not overbreathing the vent. She is on 400/25/5/35 PRVC. On that setting , the end-tidal CO2 on the monitor 29, blood pressure 94/68 with mean arterial pressure 77, heart rate 105, oxygen saturation 100%. Respiratory rate 25. The patient is still on insulin drip (5 units per hour) and D5 half normal saline at 150 mL per hour. The IVF will be switched to D5W of the same rate. The last blood glucose was 145. The last anion gap was 15. PHYSICAL EXAMINATION: HEAD AND NECK: Atraumatic. LUNGS: Clear to auscultation bilaterally. HEART: Regular rate and rhythm. S1, S2 normal. ABDOMEN: Soft, nontender, nondistended. MUSCULOSKELETAL: No C/C/E. NEUROLOGIC: The patient is sedated. SKIN: Moist. PSYCHIATRIC: The patient is responsive to touch stimuli. LABORATORY DATA: WBC 10.7, hemoglobin 11.8, platelet count 150. Sodium 156, potassium 3.4 (IV fluids switched to D5W), carbon dioxide 21, BUN 87, creatinine 5.7, glucose 147. ABG showed pH 7.3, lactic acid 2.9 down from 4.3. MEDICATIONS: D5, 150 mL per hour, heparin 5000 subQ q. 8, regular insulin sliding scale 5 units per hour, Keppra, cefepime, Protonix, silver sulfadiazine. ASSESSMENT AND PLAN: This 61-year-old lady who presented with hyperosmolar nonketotic coma. The subsequent septic workup and casey CT of the body did not reveal any significant infectious etiology. The last chest x-ray performed yesterday at 8:00 p.m. showed reexpanded left lung. No active infiltrates. The patient was started on IV fluids, insulin drip, BMP every 4 hours, Accu- Chek every 1 hour. Mechanical ventilation was provided for airway protection and ventilatory support. Since then, the patient has substantially improved. We stopped propofol, and we will assess her ability to respond to commands, as well as her gag and cough reflexes. Chest x-ray as of yesterday clear. Her next BMP is scheduled in 1 hour to seek if anion gap closed. Once anion gap closed, we will switch her to subcutaneous longer-acting formulation of the insulin (overlap with IV drip). Once more awake, we will proceed with weaning trial and attempt to extubate. The patient's lactic acidosis substantially improved. Addendum: AG closed, Na level improved, D5w continued, endocrine consult is appreciated, insulin drip will be switched over to s/c formulation after short overlap period. Patient passed SBT, is following commands-->will be extubated Addendum: patient is extubated to BPAP and is doing well. ccm time 40 min Charlie Del Cid MD cc: [id number] TT: 09/25/2016 11:52:25 Confirmation # [id number] Dictation # [id number] jn MTDD
[2016-09-25] MEDS: Insulin Reg-LOW-Coverage SC SCH ×4 (12:00→22:27)
[2016-09-25 12:31] LABS: ARTERIAL BLOOD GAS HCO3 17.3 mmol/L (21-28); ARTERIAL BLOOD GAS PH 7.34 (7.35-7.45); ATERIAL BLOOD GAS PEEP 5
[2016-09-25] MEDS: Potassium Chloride 10 mEq 100 ML IVPB SCH ×2 (13:00→15:00)
--- NOTE | 2016-09-25 15:49 | CP.PCM.PN ---
<Leana Faulkner - Last Filed: 09/25/16 15:45> Subjective - Date & Time of Evaluation Date of Evaluation: 09/25/16 Time of Evaluation: 07:00 - Subjective Subjective: Pt was seen and examined at bedside. No acute events overnight as per nursing staff. She is intubated and sedated and on insulin drip and IVF with D51/2NS. ROS not obtainable Objective - Vital Signs/Intake and Output Vital Signs (last 24 hours): Temp Pulse Resp BP Pulse Ox 98 F 121 H 21 121/80 100 09/25/16 06:37 09/25/16 14:00 09/25/16 14:00 09/25/16 13:00 09/25/16 14:00 Intake and Output: 09/25/16 09/25/16 06:59 18:59 Intake Total Output Total Balance - Medications Medications: Current Medications Heparin Sodium (Porcine) (Heparin) 5,000 units SC Q8H [facility] PRN Reason: Protocol Last Admin: 09/25/16 14:14 Dose: 5,000 units Propofol (Diprivan) 100 mls @ 2.994 mls/hr IV .Q24H PRN; Protocol; 5 MCG/KG/MIN PRN Reason: TITRATE PER MD ORDER Last Admin: 09/25/16 05:37 Dose: 5.987 mls/hr Levetiracetam (Keppra 500mg Ivpb) 100 mls @ 400 mls/hr IVPB Q12 [facility] Last Admin: 09/25/16 09:44 Dose: 400 mls/hr Cefepime HCl (Maxipime 1gm) 100 mls @ 100 mls/hr IVPB Q24H [facility] PRN Reason: Protocol Last Admin: 09/25/16 09:44 Dose: 100 mls/hr Dextrose (Dextrose 5% In Water 1000 Ml) 1,000 mls @ 150 mls/hr IV .Q6H40M [facility] Last Admin: 09/25/16 09:39 Dose: 150 mls/hr Insulin Human Regular (Humulin R Low) 0 units SC Q4H [facility] PRN Reason: Protocol Last Admin: 09/25/16 12:00 Dose: Not Given Pantoprazole Sodium (Protonix Inj) 40 mg IVP DAILY [facility] Last Admin: 09/25/16 09:44 Dose: 40 mg Silver Sulfadiazine (Silvadene 1% 20 Gm) 0 ea TOP BID EM[facility] Last Admin: 09/25/16 10:17 Dose: 1 applic - Labs Labs: 09/25/16 05:05 09/25/16 11:00 PT 12.2 Seconds (9.9-11.8) H 09/24/16 13:10 INR 1.13 (0.93-1.08) H 09/24/16 13:10 APTT 22.2 Seconds (23.7-30.8) L 09/24/16 13:10 - Constitutional Appears: No Acute Distress - Head Exam Head Exam: ATRAUMATIC, NORMAL INSPECTION, NORMOCEPHALIC - Eye Exam Eye Exam: Normal appearance, PERRL - ENT Exam ENT Exam: Mucous Membranes Moist, Normal Exam - Respiratory Exam Respiratory Exam: Decreased Breath Sounds, Clear to Ausculation Bilateral, NORMAL BREATHING PATTERN - Cardiovascular Exam Cardiovascular Exam: RRR, +S1, +S2 - GI/Abdominal Exam GI & Abdominal Exam: Soft, Normal Bowel Sounds. absent: Tenderness - Extremities Exam Extremities Exam: Pedal Edema Additional comments: b/l ulcerations of lower extremities, bandaged, cdi - Neurological Exam Neurological Exam: Altered - Skin Skin Exam: Dry, Intact, Normal Color, Warm Assessment and Plan - Assessment and Plan (Free Text) Assessment: 61 F with PMHx of DM, CKD (not on HD), hypertension, and LE venous stasis ulcersadmitted to ICU for HONK and sepsis likely secondary to b/l lower extremity ulcerations. 1. HONK - Insulin drip, may be dc now that last bg was 150s and no longer has Anion gap , replace with long acting insulin sq - Switch D51/2NS to D5w concerning the hypernatremia - BMP q4 - Accuchecks q1 - fu hgbA1c 2. Sepsis - likely secondary to b/l le ulcerations - fu cx - Broad spec abx: cefepime - ID Consulted, Dr. Marcos 3. Hypernatremia - d51/2ns to D5w - 156- > 153, continue to monitor 4. ORI 2/2 Rhabdomyolysis - trend CPK - Aggressive IVF - fu lactic acid, downtrending - morel in place, uop- 550cc - Nephrology consulted, Dr. Pizano 5. Ulcers b/l leg - wound care 6. ? Seizures - keppra 500 mg IV q12 - Neurology Consult, Dr. Tucker - [facility] negative DVT/ GI ppx reviewed <Indira KRAUS,[facility] - Last Filed: 09/25/16 16:59> Objective - Vital Signs/Intake and Output Vital Signs (last 24 hours): Temp Pulse Resp BP Pulse Ox 98 F 121 H 21 121/80 100 09/25/16 06:37 09/25/16 14:00 09/25/16 14:00 09/25/16 13:00 09/25/16 14:00 Intake and Output: 09/25/16 09/25/16 06:59 18:59 Intake Total Output Total Balance - Medications Medications: Current Medications Heparin Sodium (Porcine) (Heparin) 5,000 units SC Q8H [facility] PRN Reason: Protocol Last Admin: 09/25/16 14:14 Dose: 5,000 units Propofol (Diprivan) 100 mls @ 2.994 mls/hr IV .Q24H PRN; Protocol; 5 MCG/KG/MIN PRN Reason: TITRATE PER MD ORDER Last Admin: 09/25/16 05:37 Dose: 5.987 mls/hr Levetiracetam (Keppra 500mg Ivpb) 100 mls @ 400 mls/hr IVPB Q12 [facility] Last Admin: 09/25/16 09:44 Dose: 400 mls/hr Cefepime HCl (Maxipime 1gm) 100 mls @ 100 mls/hr IVPB Q24H [facility] PRN Reason: Protocol Last Admin: 09/25/16 09:44 Dose: 100 mls/hr Dextrose (Dextrose 5% In Water 1000 Ml) 1,000 mls @ 150 mls/hr IV .Q6H40M [facility] Last Admin: 09/25/16 09:39 Dose: 150 mls/hr Insulin Human Regular (Humulin R Low) 0 units SC Q4H [facility] PRN Reason: Protocol Last Admin: 09/25/16 12:00 Dose: Not Given Pantoprazole Sodium (Protonix Inj) 40 mg IVP DAILY [facility] Last Admin: 09/25/16 09:44 Dose: 40 mg Silver Sulfadiazine (Silvadene 1% 20 Gm) 0 ea TOP BID [facility] Last Admin: 09/25/16 10:17 Dose: 1 applic - Labs Labs: 09/25/16 05:05 09/25/16 11:00 PT 12.2 Seconds (9.9-11.8) H 09/24/16 13:10 INR 1.13 (0.93-1.08) H 09/24/16 13:10 APTT 22.2 Seconds (23.7-30.8) L 09/24/16 13:10 Attending/Attestation - Attestation I have personally seen and examined this patient.: Yes I have fully participated in the care of the patient.: Yes I have reviewed all pertinent clinical information, including history, physical exam and plan: Yes Notes (Text): Patient was seen and examined with medical assisting program director .Agreed with resident assessment and plan. 61 F with PMH of Morbid Obesity,HTN, IRDM, Chronic kidney disease,base line creatinin unknown was admitted 09/24/16 with change of mental status , unresponsiveness , lasy time was seen by family 2 days back found to have DKA, acute on chronic renal failure, hyperkalemia, sepsis likely due to infected right leg ulcer, was intubated in ER, was hypotensive, was given fluid bolus. Blood pressure has improved.Patient is not on pressor. Patient also had atelelectasis of left lung due to right bronchus intubation.Atelectasis is improved today. DKA is improved, creatinine has come down to 5.5 ,Hyperkalemia has resolved. Patient is now hypernatremic,IV fluid changed to D5 W, Critical care is following. Nephrology, endocrine and Podiatry consulted Prognosis is guarded.
--- NOTE | 2016-09-25 16:51 | US ---
HISTORY: pancreatitis, rule out CBD dilatation+ lithiasis COMPARISON: None. TECHNIQUE: Sonographic evaluation of the abdomen. FINDINGS: LIVER: Measures 14.2 cm. Hepatopedal blood flow. Fatty infiltration manifest ultrasonographically as increased echogenicity of the liver parenchyma. No mass. No intrahepatic bile duct dilatation. GALLBLADDER: Cholelithiasis. Negative study for gallbladder wall thickening, pericholecystic fluid, sonographic Dai's sign. COMMON BILE DUCT: Measures 4.1 mm. No stones. No dilatation. PANCREAS: Obscured by overlying bowel gas. Non diagnostic assessment of the pancreas. RIGHT KIDNEY: Measures 9.9cm. Normal echogenicity. No calculus, mass, or hydronephrosis. LEFT KIDNEY: Measures 90.7cm. Normal echogenicity. No calculus, mass, or hydronephrosis. SPLEEN: Normal in size and contour. No mass. AORTA: No aneurysmal dilatation. IVC: Unremarkable. OTHER FINDINGS: None. IMPRESSION: Cholelithiasis. No sonographic evidence of acute cholecystitis. Limitations of the current examination: Nondiagnostic evaluation of the pancreas.
[2016-09-25 17:03] LABS: VENOUS BLOOD GAS BASE EXCESS -8.8 mmol/L (0.0-2.0); VENOUS BLOOD PH 7.27 (7.32-7.43)
[2016-09-25 17:14] LABS: CALCIUM 7.9 mg/dL (8.4-10.5); POTASSIUM 4.3 mmol/L (3.6-5.0)
--- NOTE | 2016-09-25 19:14 | CON ---
DATE: 09/25/2016 The patient is in the ICU, seen earlier today in 128, bed 2. CHIEF COMPLAINT: Respiratory failure x 1 day. HISTORY OF PRESENT ILLNESS: A 61-year-old female who was seen in the Emergency Room yesterday by Dr. Juan R Gonzalez. The patient stated was brought in by EMS with a history of diabetes and hypertension, lower extremity stasis ulcers, who was admitted unresponsive and patient, according to the Emergency Room, states that the patient's family has not heard from the patient in 3 days and she did not open her door. The door was broken down. The patient was found unresponsive. EMS placed a nasal trumpet in the patient, found her fingerstick to be greater than 600. EMS placed in a humerus line and now with respiratory failure, intubated on a ventilator. Infectious disease consultation because patient did have a temperature of 100.4 in the Emergency Room. No other history is available. PAST SURGICAL HISTORY: Significant for diabetes mellitus, hypertension, lower extremity stasis. The patient has an adrenal cancer according to nursing note. ALLERGIES: Unknown. MEDICATIONS AT HOME: Not listed. PHYSICAL EXAMINATION: GENERAL: She is intubated, on a ventilator, in the ICU. VITAL SIGNS: Temperature of 98, T-max was 100.4 and with a heart rate of 113, blood pressure is 130/ 90 and it was down to 82 and down to 80 yesterday systolic with a respiratory rate on the vent. HEENT: Unremarkable with an ET tube in place. NECK: Supple. LUNGS: Have decreased breath sounds. HEART: Normal S1, S2. ABDOMEN: Soft, nontender. EXTREMITIES: ulcer in the lower extremities, chronic changes. No evidence of an acute infecti on of the lower extremities. LABORATORY EXAMINATION: Reveals a white count of 10,000. Sed rate of 21. Hemoglobin of 11, platele ts of 206. Coagulation is noted. Blood gases are noted. The chemistries reveal the BUN of 87, crea tinine of 5.7 and on admission yesterday, creatinine was 7.1, it is down to 5.7. The patient had a p rocalcitonin of 2.28 yesterday and glucose was over 431, lipase of 1620 with liver enzymes with AST o f 42, ALT of 11, alkaline phosphatase is 120 with an elevated CK of over 4000. The urine culture is negative. The urinalysis is unremarkable. Blood cultures pending and the wound cultures of the lowe r extremity is also pending. ASSESSMENT AND PLAN: A 61-year-old female with diabetes and hypertension, lower extremity stasis, ad renal cancer. Admitted now with unresponsive, respiratory failure, intubated on a ventilator with ac [place] kidney injury with a creatinine of 7.1, rhabdomyolysis and with negative urine cultures. The pat ient with a chest x-ray with a volume loss in the left lung. The patient also had a CAT scan of the chest and abdomen and pelvis, which shows a complete collapse of the left lung, likely related to end otracheal tube residing in the right mainstem bronchus. The patient had another chest x-ray yesterda y, read by Dr. Scooby Hernandez, with improvement and endotracheal tube at the [place] which improved ae ration of the left lung. Currently on cefepime. The patient was given a dose of vancomycin pending casey culture results. We will follow closely with you. Overall prognosis poor. Pablo Castro MD cc: [id number] TT: 09/25/2016 19:14:12 Confirmation # [id number] Dictation # [id number]
[2016-09-25] MEDS ORDERED: Insulin Detemir 100 units/ml Vial (Levemir) SC SCH (22:00)
[2016-09-26] MEDS: Insulin Reg-LOW-Coverage SC SCH ×2 (01:41→04:25)
[2016-09-26 05:38] LABS: ADD MANUAL DIFF? NO
[2016-09-26 05:42] LABS: EOS % 0.1 % (1.5-5.0); GRAN # 8.59 (1.4-6.5); GRAN % 81.5 % (50.0-68.0); HEMATOCRIT 34.4 % (36.0-48.0); LYMPH # 1.4 (1.2-3.4); LYMPH % 13.6 % (22.0-35.0); MEAN CELL VOLUME 84.9 fL (80.0-105.0); MEAN CORPUSCULAR HEMOGLOBIN 26.4 pg (25.0-35.0); MEAN CORPUSCULAR HGB CONC 31.1 g/dl (31.0-37.0); MONO # 0.5 (0.1-0.6); MONO % 4.8 % (1.0-6.0); PLATELET COUNT 120 10^3/uL (120.0-450.0); RED CELL DISTRIBUTION WIDTH 16.4 % (11.5-14.5); WHITE BLOOD COUNT 10.5 10^3/ul (4.5-11.0)
[2016-09-26 06:10] LABS: ALB/GLOB RATIO 0.6 (1.1-1.8); BILIRUBIN,TOTAL 0.7 mg/dL (0.2-1.3); CALCIUM 7.6 mg/dL (8.4-10.5); POTASSIUM 4.1 mmol/L (3.6-5.0); TOTAL PROTEIN 5.9 g/dL (5.8-8.3)
--- NOTE | 2016-09-26 07:54 | CP.CCUPN ---
CCU Subjective - Physician Review Events Since Last Encounter (Free Text): 09/26/16 07:54 61 yo F w h/o CKD, uncontrolled DM, HTN, chronic LE venous stasis ulcers admitted unresponsive with HHNK, Sepsis, Rhabdo, ORI, hypernatremia, hyperkalemia, pancreatitis, metabolic acidosis, initially intubated for airway protection now day #1 s/p extubation. Patient seen and examined bedside. No acute events overnight. Patient currently tolerating 3L NC, no resp distress. Easily responsive to verbal and tactile stimuli. Currently on 1/2NS @ 100cc/hr. AG 13 today. Unable to perform ROS due to mental status. 09/26/16 09:06 Critical Care Time Spent (in minutes): 30 CCU Objective - Vital Signs / Intake & Output Vital Signs (Last 4 hours): Vital Signs Temp Pulse Resp BP Pulse Ox 09/26/16 05:00 98 H 25 H 123/71 100 09/26/16 04:00 98.6 F 105 H 22 117/77 100 Intake and Output (Last 8hrs): Intake & Output 09/25/16 09/26/16 09/26/16 22:59 06:59 14:59 Intake Total 2200 1818 Output Total 300 1000 Balance 1900 818 Weight 240 lb 14.4 oz Intake: IV 2200 1718 Right Femoral 2200 1718 Right Antecubital 0 Oral 0 Tube Feeding 0 TPN/PPN 0 Blood Product 0 Lipid 0 Albumin 0 Other 100 Output: Urine 300 1000 Urethral ([place]) 300 1000 Stool 0 0 Urine/Stool Mix 0 Emesis 0 Oral Regurgitation 0 Other 0 Other: Voiding Method Indwelling Catheter # Voids Urethral ([place]) 0 # Bowel Movements 0 - Physical Exam Head: Positive for: Atraumatic, Normocephalic Pupils: Positive for: Other (Right: 3mm, reactive Left: 4mm, reactive but sluggish) Conjunctiva: Positive for: Normal Mouth: Positive for: Dry (with vomitous material present), Other (vomitus material in posterior oropharynx on intubation) Pharnyx: Negative for: ERYTHEMA Respiratory/Chest: Positive for: Decreased Breath Sounds (bilateral but equal) Cardiovascular: Positive for: Normal S1, S2, Tachycardic Abdomen: Positive for: Distention (mildly distended). Negative for: Tenderness Lower Extremity: Positive for: Edema (bilateral edema with venous stasis changes ), Other (superficial ulcers on bilateral anterior tibial areas) Neurological: Positive for: Other (GCS is 6; patient with L upper extremity twitching with possible LUE decorticate posturing). Negative for: Speech Normal Skin: Positive for: Warm, Dry, Normal Color. Negative for: Rashes - Medications Active Medications: Active Medications Generic Name Dose Route Start Last Admin Trade Name Freq PRN Reason Stop Dose Admin Heparin Sodium (Porcine) 5,000 units 09/25/16 14:00 09/26/16 05:20 Heparin SC 5,000 units Q8H EMETERIO Administration Protocol Propofol 100 mls @ 2.994 mls/hr 09/24/16 13:49 09/25/16 13:02 Diprivan IV 0 mcg/kg/min .Q24H PRN Titration TITRATE PER MD ORDER Protocol 5 MCG/KG/MIN Levetiracetam 100 mls @ 400 mls/hr 09/24/16 22:00 09/25/16 21:26 Keppra 500mg Ivpb IVPB 400 mls/hr Q12 EMETERIO Administration Cefepime HCl 100 mls @ 100 mls/hr 09/25/16 10:00 09/25/16 09:44 Maxipime 1gm IVPB 100 mls/hr Q24H EMETERIO Administration Protocol Dextrose 1,000 mls @ 150 mls/hr 09/25/16 09:45 09/26/16 01:42 Dextrose 5% In Water 1000 Ml IV 150 mls/hr .[id number] EMETERIO Administration Insulin Detemir 8 unit 09/25/16 22:00 09/25/16 22:28 Levemir SC 8 unit HS EMETERIO Administration Insulin Human Regular 0 units 09/25/16 12:00 09/26/16 04:25 Humulin R Low SC 4 units Q4H EMETERIO Administration Protocol Pantoprazole Sodium 40 mg 09/24/16 14:00 09/25/16 09:44 Protonix Inj IVP 40 mg DAILY EMETERIO Administration Silver Sulfadiazine 0 ea 09/24/16 18:15 09/25/16 18:25 Silvadene 1% 20 Gm TOP 1 applic BID EMETERIO Administration - Patient Studies Lab Studies: Microbiology Studies 09/24/16 20:45 Gram Stain - Final Leg - Right 09/24/16 14:06 Urine Culture - Final Urine,[place] No Growth (<1,000 CFU/ML) Lab Studies 09/26/16 09/26/16 09/26/16 Range/Units 05:15 04:15 01:18 WBC 10.5 (4.5-11.0) 10^3/ul RBC 4.05 (3.5-6.1) 10^6/uL Hgb 10.7 L (12.0-16.0) gm/dL Hct 34.4 L (36.0-48.0) % MCV 84.9 (80.0-105.0) fL MCH 26.4 (25.0-35.0) pg MCHC 31.1 (31.0-37.0) g/dl RDW 16.4 H (11.5-14.5) % Plt Count 120 (120.0-450.0) 10^3/uL Gran % 81.5 H (50.0-68.0) % Lymph % (Auto) 13.6 L (22.0-35.0) % Dickey % (Auto) 4.8 (1.0-6.0) % Eos % (Auto) 0.1 L (1.5-5.0) % Baso % (Auto) 0.0 (0.0-3.0) % Gran # 8.59 H (1.4-6.5) Lymph # 1.4 (1.2-3.4) Dickey # 0.5 (0.1-0.6) Eos # 0.0 (0.0-0.7) Baso # 0.00 (0.0-2.0) K/mm3 pCO2 (35-45) mm/Hg pO2 (30-55) mm/Hg HCO3 (21-28) mmol/L ABG pH (7.35-7.45) ABG Total CO2 (22-28) mmol.L ABG O2 Saturation (95-98) % ABG Base Excess (-2.0-3.0) mmol/L ABG Potassium (3.6-5.2) mmol/L VBG pH (7.32-7.43) VBG pCO2 (40-60) VBG HCO3 (21-28) mmol/l VBG Total CO2 (22-28) mmol.L VBG O2 Sat (Calc) (40-65) % VBG Base Excess (0.0-2.0) mmol/L VBG Potassium (3.6-5.2) mmol/L Glucose (65-105) mg/dl Lactate (0.7-2.1) mmol/L FiO2 % PEEP Sodium (132-148) mmol/L Potassium (3.6-5.0) mmol/L Chloride (98-107) mmol/L Carbon Dioxide (21-33) mmol/L Anion Gap (10-20) BUN (7-21) mg/dL Creatinine (0.5-1.4) mg/dL Est GFR ( Amer) Est GFR (Non-Af Amer) POC Glucose (mg/dL) 302 H 214 H (65-110) mg/dL Random Glucose (70-110) mg/dL Calcium (8.4-10.5) mg/dL Lipase (23-300) U/L Arterial Blood Potassium (3.6-5.2) mmol/L Venous Blood Potassium (3.6-5.2) mmol/L 09/25/16 09/25/16 09/25/16 Range/Units 22:15 19:42 16:50 WBC (4.5-11.0) 10^3/ul RBC (3.5-6.1) 10^6/uL Hgb (12.0-16.0) gm/dL Hct (36.0-48.0) % MCV (80.0-105.0) fL MCH (25.0-35.0) pg MCHC (31.0-37.0) g/dl RDW (11.5-14.5) % Plt Count (120.0-450.0) 10^3/uL Gran % (50.0-68.0) % Lymph % (Auto) (22.0-35.0) % Dickey % (Auto) (1.0-6.0) % Eos % (Auto) (1.5-5.0) % Baso % (Auto) (0.0-3.0) % Gran # (1.4-6.5) Lymph # (1.2-3.4) Dickey # (0.1-0.6) Eos # (0.0-0.7) Baso # (0.0-2.0) K/mm3 pCO2 (35-45) mm/Hg pO2 137 H (30-55) mm/Hg HCO3 (21-28) mmol/L ABG pH (7.35-7.45) ABG Total CO2 (22-28) mmol.L ABG O2 Saturation (95-98) % ABG Base Excess (-2.0-3.0) mmol/L ABG Potassium (3.6-5.2) mmol/L VBG pH 7.27 L (7.32-7.43) VBG pCO2 38.0 L (40-60) VBG HCO3 17.4 L (21-28) mmol/l VBG Total CO2 18.6 L (22-28) mmol.L VBG O2 Sat (Calc) 98.8 H (40-65) % VBG Base Excess -8.8 L (0.0-2.0) mmol/L VBG Potassium 4.1 (3.6-5.2) mmol/L Glucose 254 H (65-105) mg/dl Lactate 2.0 (0.7-2.1) mmol/L FiO2 21.0 % PEEP Sodium 147.0 (132-148) mmol/L Potassium 4.3 (3.6-5.0) mmol/L Chloride 123.0 H (98-107) mmol/L Carbon Dioxide 20 L (21-33) mmol/L Anion Gap 15 (10-20) BUN 89 H (7-21) mg/dL Creatinine 5.5 H (0.5-1.4) mg/dL Est GFR ( Amer) 9 Est GFR (Non-Af Amer) 8 POC Glucose (mg/dL) 412 H* 369 H (65-110) mg/dL Random Glucose 244 H (70-110) mg/dL Calcium 7.9 L (8.4-10.5) mg/dL Lipase (23-300) U/L Arterial Blood Potassium (3.6-5.2) mmol/L Venous Blood Potassium 4.1 (3.6-5.2) mmol/L 09/25/16 09/25/16 09/25/16 Range/Units 16:24 12:21 12:20 WBC (4.5-11.0) 10^3/ul RBC (3.5-6.1) 10^6/uL Hgb (12.0-16.0) gm/dL Hct (36.0-48.0) % MCV (80.0-105.0) fL MCH (25.0-35.0) pg MCHC (31.0-37.0) g/dl RDW (11.5-14.5) % Plt Count (120.0-450.0) 10^3/uL Gran % (50.0-68.0) % Lymph % (Auto) (22.0-35.0) % Dickey % (Auto) (1.0-6.0) % Eos % (Auto) (1.5-5.0) % Baso % (Auto) (0.0-3.0) % Gran # (1.4-6.5) Lymph # (1.2-3.4) Dickey # (0.1-0.6) Eos # (0.0-0.7) Baso # (0.0-2.0) K/mm3 pCO2 32 L (35-45) mm/Hg pO2 137.0 H (30-55) mm/Hg HCO3 17.3 L (21-28) mmol/L ABG pH 7.34 L (7.35-7.45) ABG Total CO2 18.3 L (22-28) mmol.L ABG O2 Saturation 99.2 H (95-98) % ABG Base Excess -7.4 L (-2.0-3.0) mmol/L ABG Potassium 3.0 L (3.6-5.2) mmol/L VBG pH (7.32-7.43) VBG pCO2 (40-60) VBG HCO3 (21-28) mmol/l VBG Total CO2 (22-28) mmol.L VBG O2 Sat (Calc) (40-65) % VBG Base Excess (0.0-2.0) mmol/L VBG Potassium (3.6-5.2) mmol/L Glucose 173 H (65-105) mg/dl Lactate 2.0 (0.7-2.1) mmol/L FiO2 35.0 % PEEP 5 Sodium 150.0 H (132-148) mmol/L Potassium (3.6-5.0) mmol/L Chloride 125.0 H (98-107) mmol/L Carbon Dioxide (21-33) mmol/L Anion Gap (10-20) BUN (7-21) mg/dL Creatinine (0.5-1.4) mg/dL Est GFR ( Amer) Est GFR (Non-Af Amer) POC Glucose (mg/dL) 190 H 152 H (65-110) mg/dL Random Glucose (70-110) mg/dL Calcium (8.4-10.5) mg/dL Lipase (23-300) U/L Arterial Blood Potassium 3.0 L (3.6-5.2) mmol/L Venous Blood Potassium (3.6-5.2) mmol/L 09/25/16 09/25/16 09/25/16 Range/Units 11:00 09:05 07:20 WBC (4.5-11.0) 10^3/ul RBC (3.5-6.1) 10^6/uL Hgb (12.0-16.0) gm/dL Hct (36.0-48.0) % MCV (80.0-105.0) fL MCH (25.0-35.0) pg MCHC (31.0-37.0) g/dl RDW (11.5-14.5) % Plt Count (120.0-450.0) 10^3/uL Gran % (50.0-68.0) % Lymph % (Auto) (22.0-35.0) % Dickey % (Auto) (1.0-6.0) % Eos % (Auto) (1.5-5.0) % Baso % (Auto) (0.0-3.0) % Gran # (1.4-6.5) Lymph # (1.2-3.4) Dickey # (0.1-0.6) Eos # (0.0-0.7) Baso # (0.0-2.0) K/mm3 pCO2 (35-45) mm/Hg pO2 180 H (30-55) mm/Hg HCO3 (21-28) mmol/L ABG pH (7.35-7.45) ABG Total CO2 (22-28) mmol.L ABG O2 Saturation (95-98) % ABG Base Excess (-2.0-3.0) mmol/L ABG Potassium (3.6-5.2) mmol/L VBG pH 7.24 L (7.32-7.43) VBG pCO2 45.0 (40-60) VBG HCO3 19.3 L (21-28) mmol/l VBG Total CO2 20.7 L (22-28) mmol.L VBG O2 Sat (Calc) 99.5 H (40-65) % VBG Base Excess -8.0 L (0.0-2.0) mmol/L VBG Potassium 3.4 L (3.6-5.2) mmol/L Glucose 164 H (65-105) mg/dl Lactate 2.9 H (0.7-2.1) mmol/L FiO2 21.0 % PEEP Sodium 150.0 H (132-148) mmol/L Potassium 3.4 L (3.6-5.0) mmol/L Chloride 125.0 H (98-107) mmol/L Carbon Dioxide 22 (21-33) mmol/L Anion Gap 15 (10-20) BUN 88 H (7-21) mg/dL Creatinine 5.5 H (0.5-1.4) mg/dL Est GFR ( Amer) 9 Est GFR (Non-Af Amer) 8 POC Glucose (mg/dL) 125 H 147 H (65-110) mg/dL Random Glucose 157 H (70-110) mg/dL Calcium 7.9 L (8.4-10.5) mg/dL Lipase 458 H (23-300) U/L Arterial Blood Potassium (3.6-5.2) mmol/L Venous Blood Potassium 3.4 L (3.6-5.2) mmol/L 09/25/16 09/25/16 09/25/16 Range/Units 06:08 05:38 04:10 WBC (4.5-11.0) 10^3/ul RBC (3.5-6.1) 10^6/uL Hgb (12.0-16.0) gm/dL Hct (36.0-48.0) % MCV (80.0-105.0) fL MCH (25.0-35.0) pg MCHC (31.0-37.0) g/dl RDW (11.5-14.5) % Plt Count (120.0-450.0) 10^3/uL Gran % (50.0-68.0) % Lymph % (Auto) (22.0-35.0) % Dickey % (Auto) (1.0-6.0) % Eos % (Auto) (1.5-5.0) % Baso % (Auto) (0.0-3.0) % Gran # (1.4-6.5) Lymph # (1.2-3.4) Dickey # (0.1-0.6) Eos # (0.0-0.7) Baso # (0.0-2.0) K/mm3 pCO2 (35-45) mm/Hg pO2 (30-55) mm/Hg HCO3 (21-28) mmol/L ABG pH (7.35-7.45) ABG Total CO2 (22-28) mmol.L ABG O2 Saturation (95-98) % ABG Base Excess (-2.0-3.0) mmol/L ABG Potassium (3.6-5.2) mmol/L VBG pH (7.32-7.43) VBG pCO2 (40-60) VBG HCO3 (21-28) mmol/l VBG Total CO2 (22-28) mmol.L VBG O2 Sat (Calc) (40-65) % VBG Base Excess (0.0-2.0) mmol/L VBG Potassium (3.6-5.2) mmol/L Glucose (65-105) mg/dl Lactate (0.7-2.1) mmol/L FiO2 % PEEP Sodium (132-148) mmol/L Potassium (3.6-5.0) mmol/L Chloride (98-107) mmol/L Carbon Dioxide (21-33) mmol/L Anion Gap (10-20) BUN (7-21) mg/dL Creatinine (0.5-1.4) mg/dL Est GFR ( Amer) Est GFR (Non-Af Amer) POC Glucose (mg/dL) 123 H 100 113 H (65-110) mg/dL Random Glucose (70-110) mg/dL Calcium (8.4-10.5) mg/dL Lipase (23-300) U/L Arterial Blood Potassium (3.6-5.2) mmol/L Venous Blood Potassium (3.6-5.2) mmol/L 09/25/16 09/25/16 09/25/16 Range/Units 03:07 03:03 01:08 WBC (4.5-11.0) 10^3/ul RBC (3.5-6.1) 10^6/uL Hgb (12.0-16.0) gm/dL Hct (36.0-48.0) % MCV (80.0-105.0) fL MCH (25.0-35.0) pg MCHC (31.0-37.0) g/dl RDW (11.5-14.5) % Plt Count (120.0-450.0) 10^3/uL Gran % (50.0-68.0) % Lymph % (Auto) (22.0-35.0) % Dickey % (Auto) (1.0-6.0) % Eos % (Auto) (1.5-5.0) % Baso % (Auto) (0.0-3.0) % Gran # (1.4-6.5) Lymph # (1.2-3.4) Dickey # (0.1-0.6) Eos # (0.0-0.7) Baso # (0.0-2.0) K/mm3 pCO2 (35-45) mm/Hg pO2 (30-55) mm/Hg HCO3 (21-28) mmol/L ABG pH (7.35-7.45) ABG Total CO2 (22-28) mmol.L ABG O2 Saturation (95-98) % ABG Base Excess (-2.0-3.0) mmol/L ABG Potassium (3.6-5.2) mmol/L VBG pH (7.32-7.43) VBG pCO2 (40-60) VBG HCO3 (21-28) mmol/l VBG Total CO2 (22-28) mmol.L VBG O2 Sat (Calc) (40-65) % VBG Base Excess (0.0-2.0) mmol/L VBG Potassium (3.6-5.2) mmol/L Glucose (65-105) mg/dl Lactate (0.7-2.1) mmol/L FiO2 % PEEP Sodium (132-148) mmol/L Potassium (3.6-5.0) mmol/L Chloride (98-107) mmol/L Carbon Dioxide (21-33) mmol/L Anion Gap (10-20) BUN (7-21) mg/dL Creatinine (0.5-1.4) mg/dL Est GFR ( Amer) Est GFR (Non-Af Amer) POC Glucose (mg/dL) 160 H 152 H 219 H (65-110) mg/dL Random Glucose (70-110) mg/dL Calcium (8.4-10.5) mg/dL Lipase (23-300) U/L Arterial Blood Potassium (3.6-5.2) mmol/L Venous Blood Potassium (3.6-5.2) mmol/L 09/25/16 09/24/16 09/24/16 Range/Units 00:04 23:03 22:04 WBC (4.5-11.0) 10^3/ul RBC (3.5-6.1) 10^6/uL Hgb (12.0-16.0) gm/dL Hct (36.0-48.0) % MCV (80.0-105.0) fL MCH (25.0-35.0) pg MCHC (31.0-37.0) g/dl RDW (11.5-14.5) % Plt Count (120.0-450.0) 10^3/uL Gran % (50.0-68.0) % Lymph % (Auto) (22.0-35.0) % Dickey % (Auto) (1.0-6.0) % Eos % (Auto) (1.5-5.0) % Baso % (Auto) (0.0-3.0) % Gran # (1.4-6.5) Lymph # (1.2-3.4) Dickey # (0.1-0.6) Eos # (0.0-0.7) Baso # (0.0-2.0) K/mm3 pCO2 (35-45) mm/Hg pO2 (30-55) mm/Hg HCO3 (21-28) mmol/L ABG pH (7.35-7.45) ABG Total CO2 (22-28) mmol.L ABG O2 Saturation (95-98) % ABG Base Excess (-2.0-3.0) mmol/L ABG Potassium (3.6-5.2) mmol/L VBG pH (7.32-7.43) VBG pCO2 (40-60) VBG HCO3 (21-28) mmol/l VBG Total CO2 (22-28) mmol.L VBG O2 Sat (Calc) (40-65) % VBG Base Excess (0.0-2.0) mmol/L VBG Potassium (3.6-5.2) mmol/L Glucose (65-105) mg/dl Lactate (0.7-2.1) mmol/L FiO2 % PEEP Sodium (132-148) mmol/L Potassium (3.6-5.0) mmol/L Chloride (98-107) mmol/L Carbon Dioxide (21-33) mmol/L Anion Gap (10-20) BUN (7-21) mg/dL Creatinine (0.5-1.4) mg/dL Est GFR ( Amer) Est GFR (Non-Af Amer) POC Glucose (mg/dL) 294 H 431 H* > 500 H* (65-110) mg/dL Random Glucose (70-110) mg/dL Calcium (8.4-10.5) mg/dL Lipase (23-300) U/L Arterial Blood Potassium (3.6-5.2) mmol/L Venous Blood Potassium (3.6-5.2) mmol/L 09/24/16 09/24/16 09/24/16 Range/Units 21:18 20:23 19:18 WBC (4.5-11.0) 10^3/ul RBC (3.5-6.1) 10^6/uL Hgb (12.0-16.0) gm/dL Hct (36.0-48.0) % MCV (80.0-105.0) fL MCH (25.0-35.0) pg MCHC (31.0-37.0) g/dl RDW (11.5-14.5) % Plt Count (120.0-450.0) 10^3/uL Gran % (50.0-68.0) % Lymph % (Auto) (22.0-35.0) % Dickey % (Auto) (1.0-6.0) % Eos % (Auto) (1.5-5.0) % Baso % (Auto) (0.0-3.0) % Gran # (1.4-6.5) Lymph # (1.2-3.4) Dickey # (0.1-0.6) Eos # (0.0-0.7) Baso # (0.0-2.0) K/mm3 pCO2 (35-45) mm/Hg pO2 (30-55) mm/Hg HCO3 (21-28) mmol/L ABG pH (7.35-7.45) ABG Total CO2 (22-28) mmol.L ABG O2 Saturation (95-98) % ABG Base Excess (-2.0-3.0) mmol/L ABG Potassium (3.6-5.2) mmol/L VBG pH (7.32-7.43) VBG pCO2 (40-60) VBG HCO3 (21-28) mmol/l VBG Total CO2 (22-28) mmol.L VBG O2 Sat (Calc) (40-65) % VBG Base Excess (0.0-2.0) mmol/L VBG Potassium (3.6-5.2) mmol/L Glucose (65-105) mg/dl Lactate (0.7-2.1) mmol/L FiO2 % PEEP Sodium (132-148) mmol/L Potassium (3.6-5.0) mmol/L Chloride (98-107) mmol/L Carbon Dioxide (21-33) mmol/L Anion Gap (10-20) BUN (7-21) mg/dL Creatinine (0.5-1.4) mg/dL Est GFR ( Amer) Est GFR (Non-Af Amer) POC Glucose (mg/dL) 438 H* > 500 H* > 500 H* (65-110) mg/dL Random Glucose (70-110) mg/dL Calcium (8.4-10.5) mg/dL Lipase (23-300) U/L Arterial Blood Potassium (3.6-5.2) mmol/L Venous Blood Potassium (3.6-5.2) mmol/L Laboratory Results - last 24 hr 09/24/16 09/24/16 09/24/16 19:18 20:23 21:18 WBC RBC Hgb Hct MCV MCH MCHC RDW Plt Count Gran % Lymph % (Auto) Dickey % (Auto) Eos % (Auto) Baso % (Auto) Gran # Lymph # Dickey # Eos # Baso # pCO2 pO2 HCO3 ABG pH ABG Total CO2 ABG O2 Saturation ABG Base Excess ABG Potassium VBG pH VBG pCO2 VBG HCO3 VBG Total CO2 VBG O2 Sat (Calc) VBG Base Excess VBG Potassium Sodium Chloride Glucose Lactate FiO2 PEEP Potassium Carbon Dioxide Anion Gap BUN Creatinine Est GFR ( Amer) Est GFR (Non-Af Amer) POC Glucose (mg/dL) > 500 H* > 500 H* 438 H* Random Glucose Calcium Lipase Arterial Blood Potassium Venous Blood Potassium 09/24/16 09/24/16 09/25/16 22:04 23:03 00:04 WBC RBC Hgb Hct MCV MCH MCHC RDW Plt Count Gran % Lymph % (Auto) Dickey % (Auto) Eos % (Auto) Baso % (Auto) Gran # Lymph # D[place]key # Eos # Baso # pCO2 pO2 HCO3 ABG pH ABG Total CO2 ABG O2 Saturation ABG Base Excess ABG Potassium VBG pH VBG pCO2 VBG HCO3 VBG Total CO2 VBG O2 Sat (Calc) VBG Base Excess VBG Potassium Sodium Chloride Glucose Lactate FiO2 PEEP Potassium Carbon Dioxide Anion Gap BUN Creatinine Est GFR ( Amer) Est GFR (Non-Af Amer) POC Glucose (mg/dL) > 500 H* 431 H* 294 H Random Glucose Calcium Lipase Arterial Blood Potassium Venous Blood Potassium 09/25/16 09/25/16 09/25/16 01:08 03:03 03:07 WBC RBC Hgb Hct MCV MCH MCHC RDW Plt Count Gran % Lymph % (Auto) D[place]key % (Auto) Eos % (Auto) Baso % (Auto) Gran # Lymph # D[place]key # Eos # Baso # pCO2 pO2 HCO3 ABG pH ABG Total CO2 ABG O2 Saturation ABG Base Excess ABG Potassium VBG pH VBG pCO2 VBG HCO3 VBG Total CO2 VBG O2 Sat (Calc) VBG Base Excess VBG Potassium Sodium Chloride Glucose Lactate FiO2 PEEP Potassium Carbon Dioxide Anion Gap BUN Creatinine Est GFR ( Amer) Est GFR (Non-Af Amer) POC Glucose (mg/dL) 219 H 152 H 160 H Random Glucose Calcium Lipase Arterial Blood Potassium Venous Blood Potassium 09/25/16 09/25/16 09/25/16 04:10 05:38 06:08 WBC RBC Hgb Hct MCV MCH MCHC RDW Plt Count Gran % Lymph % (Auto) D[place]key % (Auto) Eos % (Auto) Baso % (Auto) Gran # Lymph # D[place]key # Eos # Baso # pCO2 pO2 HCO3 ABG pH ABG Total CO2 ABG O2 Saturation ABG Base Excess ABG Potassium VBG pH VBG pCO2 VBG HCO3 VBG Total CO2 VBG O2 Sat (Calc) VBG Base Excess VBG Potassium Sodium Chloride Glucose Lactate FiO2 PEEP Potassium Carbon Dioxide Anion Gap BUN Creatinine Est GFR ( Amer) Est GFR (Non-Af Amer) POC Glucose (mg/dL) 113 H 100 123 H Random Glucose Calcium Lipase Arterial Blood Potassium Venous Blood Potassium 09/25/16 09/25/16 09/25/16 07:20 09:05 11:00 WBC RBC Hgb Hct MCV MCH MCHC RDW Plt Count Gran % Lymph % (Auto) Dickey % (Auto) Eos % (Auto) Baso % (Auto) Gran # Lymph # Dickey # Eos # Baso # pCO2 pO2 180 H HCO3 ABG pH ABG Total CO2 ABG O2 Saturation ABG Base Excess ABG Potassium VBG pH 7.24 L VBG pCO2 45.0 VBG HCO3 19.3 L VBG Total CO2 20.7 L VBG O2 Sat (Calc) 99.5 H VBG Base Excess -8.0 L VBG Potassium 3.4 L Sodium 153 H Chloride 119 H Glucose 164 H Lactate 2.9 H FiO2 21.0 PEEP Potassium 3.4 L Carbon Dioxide 22 Anion Gap 15 BUN 88 H Creatinine 5.5 H Est GFR ( Amer) 9 Est GFR (Non-Af Amer) 8 POC Glucose (mg/dL) 147 H 125 H Random Glucose 157 H Calcium 7.9 L Lipase 458 H Arterial Blood Potassium Venous Blood Potassium 3.4 L 09/25/16 09/25/16 09/25/16 12:20 12:21 16:24 WBC RBC Hgb Hct MCV MCH MCHC RDW Plt Count Gran % Lymph % (Auto) Dickey % (Auto) Eos % (Auto) Baso % (Auto) Gran # Lymph # Dickey # Eos # Baso # pCO2 32 L pO2 137.0 H HCO3 17.3 L ABG pH 7.34 L ABG Total CO2 18.3 L ABG O2 Saturation 99.2 H ABG Base Excess -7.4 L ABG Potassium 3.0 L VBG pH VBG pCO2 VBG HCO3 VBG Total CO2 VBG O2 Sat (Calc) VBG Base Excess VBG Potassium Sodium 150.0 H Chloride 125.0 H Glucose 173 H Lactate 2.0 FiO2 35.0 PEEP 5 Potassium Carbon Dioxide Anion Gap BUN Creatinine Est GFR ( Amer) Est GFR (Non-Af Amer) POC Glucose (mg/dL) 152 H 190 H Random Glucose Calcium Lipase Arterial Blood Potassium 3.0 L Venous Blood Potassium 09/25/16 09/25/16 09/25/16 16:50 19:42 22:15 WBC RBC Hgb Hct MCV MCH MCHC RDW Plt Count Gran % Lymph % (Auto) Dickey % (Auto) Eos % (Auto) Baso % (Auto) Gran # Lymph # Dickey # Eos # Baso # pCO2 pO2 137 H HCO3 ABG pH ABG Total CO2 ABG O2 Saturation ABG Base Excess ABG Potassium VBG pH 7.27 L VBG pCO2 38.0 L VBG HCO3 17.4 L VBG Total CO2 18.6 L VBG O2 Sat (Calc) 98.8 H VBG Base Excess -8.8 L VBG Potassium 4.1 Sodium 148 Chloride 117 H Glucose 254 H Lactate 2.0 FiO2 21.0 PEEP Potassium 4.3 Carbon Dioxide 20 L Anion Gap 15 BUN 89 H Creatinine 5.5 H Est GFR ( Amer) 9 Est GFR (Non-Af Amer) 8 POC Glucose (mg/dL) 369 H 412 H* Random Glucose 244 H Calcium 7.9 L Lipase Arterial Blood Potassium Venous Blood Potassium 4.1 09/26/16 09/26/16 09/26/16 01:18 04:15 05:15 WBC 10.5 RBC 4.05 Hgb 10.7 L Hct 34.4 L MCV 84.9 MCH 26.4 MCHC 31.1 RDW 16.4 H Plt Count 120 Gran % 81.5 H Lymph % (Auto) 13.6 L Dickey % (Auto) 4.8 Eos % (Auto) 0.1 L Baso % (Auto) 0.0 Gran # 8.59 H Lymph # 1.4 Dickey # 0.5 Eos # 0.0 Baso # 0.00 pCO2 pO2 HCO3 ABG pH ABG Total CO2 ABG O2 Saturation ABG Base Excess ABG Potassium VBG pH VBG pCO2 VBG HCO3 VBG Total CO2 VBG O2 Sat (Calc) VBG Base Excess VBG Potassium Sodium Chloride Glucose Lactate FiO2 PEEP Potassium Carbon Dioxide Anion Gap BUN Creatinine Est GFR ( Amer) Est GFR (Non-Af Amer) POC Glucose (mg/dL) 214 H 302 H Random Glucose Calcium Lipase Arterial Blood Potassium Venous Blood Potassium Fingerstick Blood Sugar Results: 302 Review of Systems - Review of Systems Systems not reviewed;Unavailable: Altered Mental Status Critical Care Progress Note - Ventilator Checklist Head of Bed 30 Degrees: Yes PUD Prophalyxis: Yes DVT Prophylaxis: Yes - Nutrition Nutrition: Nutrition Category Date Time Status Consistent Carbohydrate [DIET] Diets 09/26/16 Breakfast Ordered Assessment/Plan - Assessment and Plan (Free Text) Assessment: 61 yo F w h/o CKD, uncontrolled DM, HTN, chronic LE venous stasis ulcers admitted unresponsive with HHNK, Sepsis likely 2/2 venous stasis ulcers, Rhabdo , ORI, hypernatremia, hyperkalemia, pancreatitis, metabolic acidosis, initially intubated for airway protection now day #1 s/p extubation, tolerating 3L NC. Plan: Neuro: AMS likely 2/2 HHNK +/- sepsis. Alert, not oriented, following simple commands, unable to answer ROS EEG pending. Neuro following. Continue Keppra until patient AAOx3 CV: Mild tachy in low 100s. HD stable. Continue to monitor. Pulm: Stable. Tolerating 3L NC. CXR shows continued L lung stability GI: Pancreatitis resolved Abd US showed cholelithiasis without cholecystitis. Nondiagnostic pancreatic evaluation. Heme: Mild normocytic anemia. No signs of bleeding. Continue to monitor. ID: Sepsis 2/2 venous stasis ulcer. On cefepime. 1dose Vanc given today. Now also on Linezolid as per ID Would gram stain sig. for GPC and GPB. Cultures pending Blood cx negative at 24 hours Final urine cultures negative Procal 2.28 at admission. Procal today pending Local wound care Renal: ORI improved. Unknown baseline. Nephro c/s pending Endo: Hyperglycemic this AM. BS in 600s. AG today 13. Currently on Levemir 8units Qhs. Will give 10units Regular insulin and increase SSI to medium scale. DVT/GI ppx: SQH, IV protonix, pureed diet w nectar thickened liquids - Date & Time Date: 09/26/16 Time: 09:05
--- NOTE | 2016-09-26 08:04 | CON ---
DATE: 09/25/2016 CHIEF COMPLAINT: Altered mental status and jerking of the extremities. HISTORY OF PRESENTING ILLNESS: The history is obtained from medical records as patient is intubated, but this is a 61-year-old woman with past medical history of type 2 diabetes, uncontrolled, chronic kidney disease on hemodialysis, hypertension, lower extremity venous stasis ulcers. Presented to the hospital unresponsive. According to the family, 3 days ago she was communicating with the family th at her legs were hurting and was taking Advil daily. The family did not hear from her the past few d ays. Therefore, the door was broken down. The patient was found unresponsive sitting on the couch. Her fingerstick blood glucose at that time was 600 and blood pressure was 59/32 mmHg and therefore, brought to the hospital where her initial random glucose in the hospital was and was hyperkalem ic as well as had developed hypernatremia over time. Currently, she is intubated, but she is opening eyes, following simple commands. She has some jerking movements of her extremities. She is on Kepp ra IV q. 12 for now. PAST MEDICAL HISTORY: History of hypertension, history of CKD, history of uncontrolled diabetes, low er extremity venous stasis ulcers. REVIEW OF SYSTEMS: Unable to obtain due to patient's lethargic mental status. SOCIAL HISTORY: No illicit drug use, smoking, or ETOH abuse at this time. FAMILY HISTORY: Noncontributory. REVIEW OF SYSTEMS: A 14-point is difficult to obtain due to patient's underlying mental status. ALLERGIES: Unobtainable. PHYSICAL EXAMINATION: VITAL SIGNS: Temperature 98, pulse rate is 104, blood pressure 113/75, respiratory rate of , 10 0% oxygen via mechanical ventilation. GENERAL: The patient is intubated, on mild sedation with propofol, but is opening eyes to voice. HEENT: Atraumatic, normocephalic. PERRLA. Extraocular muscles intact. NECK: Supple, no JVD, no adenopathy noted. LUNGS: Clear to auscultation. No adventitious sounds. HEART: S1, S2, normal rate and rhythm. No murmurs, rubs, or gallops. ABDOMEN: Soft, nontender, nondistended. Bowel sounds are present. EXTREMITIES: No clubbing, no cyanosis. Peripheral pulses 2+ felt bilaterally. NEUROLOGIC: The patient is intubated, on mild sedation with propofol, but when titrated off, she is awake, opens eyes, follows simple commands, moving all extremities. Cranial nerves II-XII are intact . Speech is difficult to obtain at this time. MOTOR: She is moving all extremities equally. Toes are downgoing bilaterally. DTRs are 2+ througho ut and 1 at the knees and absent at the ankles. SENSORY: Withdraws and localizes to noxious stimulus. Light touch is intact. COORDINATION AND GAIT: Deferred for now. LABORATORIES: Sodium is 156, potassium 3.4, chloride of 120, carbon dioxide 21, BUN of 87, creatinin e 5.7, random glucose of 147, calcium 7.9. ASSESSMENT AND PLAN: This is a 61-year-old, poorly controlled diabetic with history of chronic kidne y disease on dialysis, hypertension, history of lower extremity venous stasis, who was found to be al tered mental status. Altered mental status is likely secondary to hyperosmolar nonketotic coma super imposed on underlying hypovolemia causing myoclonic jerks of the extremities. At this time, she has a metabolic encephalopathy. I do not think these are seizures. These are more myoclonic jerks from her metabolic component. At this time, recommend: 1. Monitor electrolytes and correct accordingly, slowly correct her sodium. 2. Monitor her blood sugars, get the range of 140-180. Needs diabetic education, needs better diabe tic regimen and probably an endocrinological consult. 3. Keep her blood pressure between 120-130 mmHg and hydrate the patient. 4. At this time, continue with deep venous thrombosis and gastrointestinal prophylaxis. No further neurological intervention needed at this time. Can discontinue Keppra once the patient is alert, chad ented x 3 and is extubated for now. At this time, continue with current present medical management. Will sign off. Herman Garner MD cc: [id number] TT: 09/25/2016 12:20:05 Confirmation # [id number] Dictation # [id number] en
--- NOTE | 2016-09-26 08:06 | CON ---
DATE: 09/25/2016 LOCATION: [facility]U 128, room 2. HISTORY OF PRESENT ILLNESS: This is a 61-year-old female with known history of type 2 diabetes and h ypertension who was found unresponsive per the family and admitted here with marked hyperglycemic acc elerations and is now being referred for diabetic evaluation and management. No further history is p ossible at this time regarding the patient's prior diabetic and hypertensive medications as noted. PAST MEDICAL HISTORY: History of type 2 insulin-requiring diabetes, the exact medications are not kn own at this time. History of hypertension and dyslipidemia. FAMILY HISTORY: Positive for hypertension and diabetes. SOCIAL HISTORY: The patient has a supportive family. No known substance use. REVIEW OF SYSTEMS: Not possible at this time with the patient's current intubation and mental state. PHYSICAL EXAMINATION: GENERAL: This is an overweight female, unresponsive, but responds to painful stimuli and currently e ndotracheally intubated. VITAL SIGNS: Blood pressure of 140/80, pulse of 100 beats per minute and regular, temperature 100, r espirations as per ventilator parameters. HEENT: Head normocephalic. Eyes anicteric with pink conjunctivae. Fundoscopy not possible at this time. Ears, nose and throat otherwise normal. NECK: Supple. Thyroid gland is normal size. No carotid bruits. No cervical adenopathy. CARDIOPULMONARY: Some adynamic precordium. S1, S2 is rapid and regular. LUNGS: Show scattered rhonchi. ABDOMEN: Obese, soft with positive bowel sounds. EXTREMITIES: There is presence of multiple lower extremity ulcerations distally as noted. She also has sacral decubiti noted. LABORATORY DATA: The initial chemistries showed a BUN of 92, sodium 138, potassium 7.7, chloride 96, CO2 is 15. Glucose is ____. Creatinine is 7.1. Magnesium is 3.3, phosphorus 9.1. The total creat ine kinase is 4348. LDH is 738. The proBNP is 1840. Lipase is 1654. ASSESSMENT: This is a 61-year-old female with uncontrolled and decompensated type 2 insulin-requirin g diabetes, presenting here with hyperosmolar hyperglycemic state and mild ketosis and currently unre sponsive with possible anoxic encephalopathy and currently endotracheally intubated at this time. Th ere is also biochemical evidence of possible rhabdomyolysis and markedly elevated lipase levels with possible pancreatitis. PLAN OF MANAGEMENT: Concur with the initial aggressive initiation of intensive insulin therapy using an insulin drip infusion with hourly glucose monitoring and also concurrent vigorous IV hydration as given. At this time, as she is already out of metabolic acidosis with remarkable improvement of gly cemic profile overnight, we will discontinue the insulin drip infusion today and switch her over to a q.4 hourly glucose monitoring with regular insulin coverage as given. We will start her on basal in sulin overnight as clinically indicated. We will obtain hemoglobin A1c and serial chemistries and hooks pplement accordingly as needed. We will also order a lipid panel if not already done and serial lipa se levels accordingly. We will continue the vigorous IV hydration as given. We will follow and advi se accordingly. Michelle Kent MD cc: [id number] TT: 09/25/2016 23:11:03 Confirmation # [id number] Dictation # [id number] sn
[2016-09-26] MEDS: Sodium Chloride 0.45% 1,000 ML IV SCH ×2 (08:15→20:37)
[2016-09-26] MEDS ORDERED: Vancomycin 1gm in NS 250ml 250 ML IVPB STA (08:16)
[2016-09-26] MEDS ORDERED: Insulin Regular 1 UNITS/0.01 ML ML IV ONE (08:20)
[2016-09-26] MEDS: Insulin Lispro (humaLOG) MEDIUM Coverage SC SCH ×4 (08:29→21:12)
[2016-09-26] MEDS: Cefepime 1gm in NS 100ml 100 ML IVPB SCH (09:10)
--- NOTE | 2016-09-26 09:28 | PN ---
DATE: 09/26/2016 The patient seen and examined at bedside. She is comfortable, somewhat sleepy; however, arousable. 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 We will follow up on her status. PHYSICAL EXAMINATION: GENERAL: She is alert. She is oriented x 3 when awakened. VITAL SIGNS: Heart rate 99, oxygen saturation 100% on 2 liters nasal cannula, blood pressure 132/73. HEAD AND NECK: Atraumatic. LUNGS: Clear to auscultation bilaterally. HEART: Regular rate and rhythm, S1, S2 normal. ABDOMEN: Soft, nontender, nondistended. MUSCULOSKELETAL: Acute on chronic cellulitis on both extremities right> left. SKIN: Moist. PSYCHIATRIC: The patient is alert, somnolent but easily arousable, and when awakened oriented x 3. LABORATORY DATA: Sodium 142, potassium 4.1, chloride 108, carbon dioxide 21, BUN 89, creatinine 4.8 (down from 5.5), glucose 660 (patient was on D5W as she received insulin as per endo recommendation; however, was too sleepy to have any oral food; thus, it was decided to continue with D5 containing solution. At present time, D5W stopped and half normal saline started. Accu-Chek every 4 hours and will recheck her blood glucose in 1 hour. She is on sliding scale medium protocol.) AST 111, ALT 27. The patient will receive 10 units of IV insulin x 1. MEDICATIONS: Half normal saline 100 mL per hour, heparin 5000 subQ q. 8, regular insulin sliding scale medium protocol, Levemir 8 units subQ at bedtime, cefepime, vancomycin and Protonix. ASSESSMENT AND PLAN: This is a 61-year-old lady who presented with uncontrolled diabetes and hyperosmolar nonketotic coma and was intubated for airway protection. She was successfully extubated yesterday. She is still sleepy, however, easily arousable, and when awakened is alert and oriented x 3. D5W maintenance fluids were stopped. Half normal saline was started. Accu- Chek every 4 hours. Levemir 8 units subQ at bedtime ordered by endocrine service. The patient will receive 1 dose of 10 units of insulin for her elevated glucose. We will recheck her blood glucose in 1 hour. The patient is hemodynamically and respiratory-vaughan stable. She passed a swallow evaluation yesterday and will start her on oral nutrition. We will continue with deep venous thrombosis and gastrointestinal prophylaxis. ID service's input for her cellulitis is pending. Meanwhile, the patient is on vancomycin and cefepime. I will repeat procalcitonin to see whether it is trending down. Her lactic acid level normalized ccm time 40 min. Charlie Del Cid MD cc: [id number] TT: 09/26/2016 09:28:22 Confirmation # [id number] Dictation # [id number] raciel WARNER
--- NOTE | 2016-09-26 09:46 | CP.PCM.PN ---
Subjective - Date & Time of Evaluation Date of Evaluation: 09/26/16 Time of Evaluation: 09:00 - Subjective Subjective: Patient continues to be lethargic although easily arousable, now off the ventilator, in some respiratory distress. Objective - Vital Signs/Intake and Output Vital Signs (last 24 hours): Temp Pulse Resp BP Pulse Ox 98.6 F 107 H 28 H 124/75 100 09/26/16 04:00 09/26/16 08:16 09/26/16 08:16 09/26/16 08:00 09/26/16 08:16 Intake and Output: 09/26/16 09/26/16 06:59 18:59 Intake Total 1818 Output Total 1000 Balance 818 - Medications Medications: Current Medications Heparin Sodium (Porcine) (Heparin) 5,000 units SC Q8H [facility] PRN Reason: Protocol Last Admin: 09/26/16 05:20 Dose: 5,000 units Cefepime HCl (Maxipime 1gm) 100 mls @ 100 mls/hr IVPB Q24H [facility] PRN Reason: Protocol Last Admin: 09/26/16 09:10 Dose: 100 mls/hr Sodium Chloride (Sodium Chloride 0.45%) 1,000 mls @ 100 mls/hr IV .Q10H [facility]ET[facility]IO Vancomycin HCl (Vancomycin 1gm) 250 mls @ 167 mls/hr IVPB STAT STA PRN Reason: Protocol Stop: 09/26/16 09:45 Last Admin: 09/26/16 09:09 Dose: 167 mls/hr Insulin Detemir (Levemir) 8 unit SC HS [facility] Last Admin: 09/25/16 22:28 Dose: 8 unit Insulin Human Lispro (Humalog Med) 0 units SC Q4H [facility]ET[facility] PRN Reason: Protocol Last Admin: 09/26/16 08:29 Dose: Not Given Pantoprazole Sodium (Protonix Inj) 40 mg IVP DAILY [facility] Last Admin: 09/26/16 09:10 Dose: 40 mg Silver Sulfadiazine (Silvadene 1% 20 Gm) 0 ea TOP BID [facility] Last Admin: 09/25/16 18:25 Dose: 1 applic - Labs Labs: 09/26/16 05:15 09/26/16 05:15 PT 12.2 Seconds (9.9-11.8) H 09/24/16 13:10 INR 1.13 (0.93-1.08) H 09/24/16 13:10 APTT 22.2 Seconds (23.7-30.8) L 09/24/16 13:10 - Constitutional Appears: Other (in mild distress, lethargic) - Neck Exam Neck Exam: absent: Lymphadenopathy, Meningismus - Respiratory Exam Respiratory Exam: Decreased Breath Sounds (with harsh breath sounds bilaterally) - Cardiovascular Exam Cardiovascular Exam: +S1, +S2 - GI/Abdominal Exam GI & Abdominal Exam: Soft. absent: Tenderness - Extremities Exam Additional comments: both legs with dressings in place Assessment and Plan - Assessment and Plan (Free Text) Plan: Assessment Systemic Inflammatory Response Syndrome with acute encephalopathy (probably toxic-metabolic) S/P ventilator-dependent respiratory failure, probably related to diabetic ketoacidosis R/O sepsis, source to be determined; one consideration is the right leg wound although the it is not severe - growing gram positive cocci acute on chronic renal failure history of adrenal cancer lower extremity venous stasis obesity with BMI 39 DM HTN Plan Patient given one dose of IV Vanco and continued on Cefepime; reviewed CXR which does not show infiltrates - may need repeat CXR; PCT is elevated but the patient has acute renal failure; blood cx are negative x 1 day; may consider starting Zyvox for the leg pending identification and sensitivities of the gram positive cocci in the wound Follow up HIV test Follow up ultrasound of legs to rule out DVT Will follow clinically Overall prognosis is poor
[2016-09-26] MEDS: Silver Sulfadiazine 1% Cream (20 gm) TOP SCH (10:00)
[2016-09-26 11:00] LABS: ARTERIAL BLOOD GAS HCO3 18.2 mmol/L (21-28); ARTERIAL BLOOD GAS O2 CAPACITY 14.7 mL/dl (16-24); ARTERIAL BLOOD GAS O2 CONTENT 14.5 ML/dl (15-23); ARTERIAL BLOOD HGB O2 SAT 96.3 % (95.0-98.0); CARBOXYHEMOGLOBIN 1.5 % (0.5-1.5); HHB 1.3 % (0-5); METHEMOGLOBIN 0.9 % (0.0-3.0)
[2016-09-26] MEDS: Linezolid 600 mg in D5W 300 ml 300 ML IVPB SCH ×2 (12:22→21:12)
--- NOTE | 2016-09-26 13:30 | CP.PCM.PN ---
<Ruthy Sterling - Last Filed: 09/26/16 15:19> Subjective - Date & Time of Evaluation Date of Evaluation: 09/26/16 Time of Evaluation: 07:35 - Subjective Subjective: Patient seen and examined at bedside. No acute events overnight. Patient was extubated yesterday currently on 2L O2 via nasal cannula. Patient is somnolent but arousable. Unable to obtain detail ROS. Objective - Vital Signs/Intake and Output Vital Signs (last 24 hours): Temp Pulse Resp BP Pulse Ox 98.6 F 107 H 22 112/69 100 09/26/16 04:00 09/26/16 11:38 09/26/16 11:38 09/26/16 11:00 09/26/16 11:32 Intake and Output: 09/26/16 09/26/16 06:59 18:59 Intake Total 1818 Output Total 1000 Balance 818 - Medications Medications: Current Medications Heparin Sodium (Porcine) (Heparin) 5,000 units SC Q8H EMETERIO PRN Reason: Protocol Last Admin: 09/26/16 05:20 Dose: 5,000 units Cefepime HCl (Maxipime 1gm) 100 mls @ 100 mls/hr IVPB Q24H EMETERIO PRN Reason: Protocol Last Admin: 09/26/16 09:10 Dose: 100 mls/hr Sodium Chloride (Sodium Chloride 0.45%) 1,000 mls @ 100 mls/hr IV .Q10H EMETERIO Last Admin: 09/26/16 08:15 Dose: 100 mls/hr Linezolid (Zyvox 600mg/300ml D5w) 300 mls @ 200 mls/hr IVPB Q12 EMET[facility]IO PRN Reason: Protocol Stop: 10/01/16 10:01 Last Admin: 09/26/16 12:22 Dose: 200 mls/hr Insulin Detemir (Levemir) 8 unit SC HS [facility] Last Admin: 09/25/16 22:28 Dose: 8 unit Insulin Human Lispro (Humalog Med) 0 units SC Q4H EMETERIO PRN Reason: Protocol Last Admin: 09/26/16 12:21 Dose: 10 units Pantoprazole Sodium (Protonix Inj) 40 mg IVP DAILY [facility] Last Admin: 09/26/16 09:10 Dose: 40 mg Silver Sulfadiazine (Silvadene 1% 20 Gm) 0 ea TOP BID [facility] Last Admin: 09/25/16 18:25 Dose: 1 applic - Labs Labs: 09/26/16 05:15 09/26/16 05:15 PT 12.2 Seconds (9.9-11.8) H 09/24/16 13:10 INR 1.13 (0.93-1.08) H 09/24/16 13:10 APTT 22.2 Seconds (23.7-30.8) L 09/24/16 13:10 - Constitutional Appears: Non-toxic, No Acute Distress - Head Exam Head Exam: ATRAUMATIC, NORMAL INSPECTION, NORMOCEPHALIC - Eye Exam Eye Exam: Normal appearance, PERRL Pupil Exam: PERRL - ENT Exam ENT Exam: Mucous Membranes Moist - Respiratory Exam Respiratory Exam: Decreased Breath Sounds, Clear to Ausculation Bilateral, NORMAL BREATHING PATTERN - Cardiovascular Exam Cardiovascular Exam: REGULAR RHYTHM, RRR, +S1, +S2. absent: Murmur - GI/Abdominal Exam GI & Abdominal Exam: Soft, Normal Bowel Sounds. absent: Tenderness (No tenderness in all 4 quadrants) - Extremities Exam Extremities Exam: absent: Normal Inspection Additional comments: Bilateral lower extremity wound dressing clean, dry, intact, no drainage appreciated - Neurological Exam Neurological Exam: Alert, Awake. absent: Oriented x3 (somnolence in the morning , was not answering to any questions) - Psychiatric Exam Additional comments: somnolence - Skin Skin Exam: Dry, Warm Assessment and Plan - Assessment and Plan (Free Text) Assessment: 61 year old female with past medical history of diabetes, CKD ( not on HD), hypertension, and LE venous stasis ulcersadmitted to ICU for HONK and sepsis likely secondary to b/l lower extremity ulcerations. HONK - Insulin regular 10 unit given today - Insulin levemir 20 unit Q12h - BMP q4 - Accuchecks q1 - Hgb A1c 16.4 - art educator referral - Consistent carbohydrate diet Sepsis - Afebrile, no leukocytosis - likely secondary to b/l le ulcerations - Right leg culture grew Gram Negative reece and Gram Positive Cocci - No growth on Blood and urine cultures - Continue antibiotics cefepime, linezolid - ID Consulted, Dr. Marcos Hypernatremia, resolved - IVF NS - 142 today, continue to monitor ORI 2/2 Rhabdomyolysis - trend CPK - Aggressive IVF - fu lactic acid, downtrending - morel in place, uop- 550cc - Nephrology consulted, Dr. Pizano Ulcers b/l leg - wound care per podiatry - Silvadene - Follow up Bilateral lower extremity duplex Pancreatitis - Lipase 2525 on admission, improving 458 today - Continue IVF r/o Seizure -Neurology recommended discontinued keppra -EEG performed today Prophylactic measures -Protonix IV for GI ppx -Heparin 5000 units SC Q8 for DVT ppx -Passed swallow eval -PT OT eval <Greg Montiel A - Last Filed: 09/26/16 16:21> Objective - Vital Signs/Intake and Output Vital Signs (last 24 hours): Temp Pulse Resp BP Pulse Ox 98.6 F 94 H 27 H 114/65 100 09/26/16 04:00 09/26/16 14:53 09/26/16 14:53 09/26/16 14:00 09/26/16 14:00 Intake and Output: 09/26/16 09/26/16 06:59 18:59 Intake Total 1818 Output Total 1000 Balance 818 - Medications Medications: Current Medications Heparin Sodium (Porcine) (Heparin) 5,000 units SC Q8H EMETERIO PRN Reason: Protocol Last Admin: 09/26/16 05:20 Dose: 5,000 units Cefepime HCl (Maxipime 1gm) 100 mls @ 100 mls/hr IVPB Q24H EMETERIO PRN Reason: Protocol Last Admin: 09/26/16 09:10 Dose: 100 mls/hr Sodium Chloride (Sodium Chloride 0.45%) 1,000 mls @ 100 mls/hr IV .Q10H [facility] Last Admin: 09/26/16 08:15 Dose: 100 mls/hr Linezolid (Zyvox 600mg/300ml D5w) 300 mls @ 200 mls/hr IVPB Q12 EMETERIO PRN Reason: Protocol Stop: 10/01/16 10:01 Last Admin: 09/26/16 12:22 Dose: 200 mls/hr Insulin Detemir (Levemir) 20 unit SC Q12H EMETERIO Insulin Human Lispro (Humalog Med) 0 units SC Q4H EMETERIO PRN Reason: Protocol Last Admin: 09/26/16 12:21 Dose: 10 units Pantoprazole Sodium (Protonix Inj) 40 mg IVP DAILY [facility] Last Admin: 09/26/16 09:10 Dose: 40 mg Silver Sulfadiazine (Silvadene 1% 20 Gm) 0 ea TOP BID [facility] Last Admin: 09/25/16 18:25 Dose: 1 applic - Labs Labs: 09/26/16 05:15 09/26/16 05:15 PT 12.2 Seconds (9.9-11.8) H 09/24/16 13:10 INR 1.13 (0.93-1.08) H 09/24/16 13:10 APTT 22.2 Seconds (23.7-30.8) L 09/24/16 13:10 Attending/Attestation - Attestation I have personally seen and examined this patient.: Yes I have fully participated in the care of the patient.: Yes I have reviewed all pertinent clinical information, including history, physical exam and plan: Yes Notes (Text): 09/26/16 16:07 61 year old female with past medical history of diabetes, hypertension, and ? CKD who presented with altered mental status. She was found to have HONK and started on IV fluids and insulin. She is being followed by endocrinology and is on levemir. She was also found to have sepsis, likely from LE ulcerations. Continue with iv antibiotics as per ID. Podiatry evaluation was also requested. She is still lethargic this morning. She had EEG this morning. Will follow up with neurology recommendations. Continue to monitor creatinine closely. Nephrology evaluation is pending. Greg Montiel MD Hospitalist.
--- NOTE | 2016-09-26 17:26 | PN ---
DATE: 09/26/2016 LOCATION: ICU 128, room 2. This is a 61-year-old female with uncontrolled type 2 insulin-requiring diabetes, presenting here wit h hyperosmolar hyperglycemic state and dehydration, and apparently has remained unresponsive with pos sible anoxic encephalopathy and currently endotracheally intubated as noted thereof. Her glycemic levels are fluctuating and have ranged from 262-302 and 471 mg/dL. Her latest chemistry showed a BUN of 89, sodium 142, potassium 4.1, chloride 108, CO2 21, glucose 660 and creatinine 4.8. So, at this time, will modify her basal insulin and increase the basal insulin to Levemir to be given as 20 units subQ every 12 hours at 8:00 a.m. and 8:00 p.m. daily as ordered to start tonight. Will continue the low-dose correction scale using Humalog insulin given every 4 hours as ordered. Will ti trate incrementally as indicated to optimize metabolic control. Will obtain serial chemistries and s upplement accordingly as needed. Will follow. Michelle Kent MD cc: [id number] TT: 09/26/2016 17:25:41 Confirmation # [id number] Dictation # [id number] raciel
--- NOTE | 2016-09-26 17:42 | US ---
HISTORY: Leg pain and swelling. Evaluate for DVT PHYSICIAN(S): Michael Wills MD. TECHNIQUE: Duplex sonography and color-flow Doppler with graded compression were used to evaluate the deep venous systems of both lower extremities. The exam is very limited by the patient's body habitus, edema, and inability to cooperate the tibial veins were not adequately evaluate. FINDINGS: The visualized deep venous systems of both lower extremities are sonographically normal and compressible. Normal wave forms and augmentation are seen. There is no sonographic evidence for deep venous thrombosis in the visualized segments of both lower extremities. IMPRESSION: No sonographic evidence for deep venous thrombosis in the visualized segments of both lower extremities. Very limited study.
[2016-09-26] MEDS ORDERED: Insulin Lispro 1 UNITS/0.01 ML SC ONE (18:30)
--- NOTE | 2016-09-26 18:36 | CP.PCM.CON ---
<Benito Jason - Last Filed: 09/26/16 18:23> History of Present Illness - History of Present Illness History of Present Illness: 61 year old female patient with PMHx of obesity, diabetes, CKD, hypertension, chronic venous stasis ulceration was seen at bedside this afternoon with attending Dr. Hill. Patient states that she had the ulceration to legs for a about two months, and does not have a catalogue clerk for the woundcare. Patient is AAO x3 and is resting in bed without acute distress. Patient denies of any N/V/F /C or SOB today Past Patient History - Past Social History Smoking Status: Unknown If Ever Smoked - CARDIAC Hx Cardiac Disorders: Yes Hx Congestive Heart Failure: No Hx Hypercholesterolemia: No Hx Hypertension: Yes - PULMONARY Hx Chronic Obstructive Pulmonary Disease (COPD): No Hx Pneumonia: No - NEUROLOGICAL HX Cerebrovascular Accident: No - RENAL Hx Renal Failure: No - ENDOCRINE/METABOLIC Hx Diabetes Mellitus Type 1: No Hx Diabetes Mellitus Type 2: Yes Hx Hypothyroidism: No - HEMATOLOGICAL/ONCOLOGICAL Hx Cancer: Yes (adrenal cancer) - INTEGUMENTARY Hx Dermatological Problems: Yes Other/Comment: multiple ulcers on lower legs. multiple areas of bruising on back and hip. these areas were listed in detail on admission profile - MUSCULOSKELETAL/RHEUMATOLOGICAL Hx Arthritis: No Hx Rheumatoid Arthritis: No - GASTROINTESTINAL Hx Gastroesophageal Reflux: No - PSYCHIATRIC Hx Substance Use: No - SURGICAL HISTORY Hx Surgeries: (unable to obtain) Meds Allergies/Adverse Reactions: Allergies Allergy/AdvReac Type Severity Reaction Status Date / Time Unobtainable Allergy Verified 09/24/16 12:41 - Medications Medications: Current Medications Acetaminophen (Tylenol 325mg Tab) 650 mg PO Q6H PRN PRN Reason: pain moderate and higher Heparin Sodium (Porcine) (Heparin) 5,000 units SC Q8H [facility] PRN Reason: Protocol Last Admin: 09/26/16 15:00 Dose: 5,000 units Cefepime HCl (Maxipime 1gm) 100 mls @ 100 mls/hr IVPB Q24H [facility] PRN Reason: Protocol Last Admin: 09/26/16 09:10 Dose: 100 mls/hr Sodium Chloride (Sodium Chloride 0.45%) 1,000 mls @ 100 mls/hr IV .Q10H [facility] Last Admin: 09/26/16 08:15 Dose: 100 mls/hr Linezolid (Zyvox 600mg/300ml D5w) 300 mls @ 200 mls/hr IVPB Q12 [facility] PRN Reason: Protocol Stop: 10/01/16 10:01 Last Admin: 09/26/16 12:22 Dose: 200 mls/hr Insulin Detemir (Levemir) 20 unit SC Q12H [facility] Insulin Human Lispro (Humalog Med) 0 units SC Q4H [facility] PRN Reason: Protocol Last Admin: 09/26/16 16:53 Dose: 10 units Pantoprazole Sodium (Protonix Inj) 40 mg IVP DAILY [facility] Last Admin: 09/26/16 09:10 Dose: 40 mg Silver Sulfadiazine (Silvadene 1% 20 Gm) 1 ea TOP Q12H [facility] Physical Exam - Constitutional Appears: No Acute Distress - Extremities Exam Additional comments: Bilateral lower extremities exam DERM: Open ulceration noted to William-lateral aspect of Right lower extremity with mix of neuyxpmg40% and fibrotic base 40%, sero-sanguinous drainage noted from the wound. Mild mal-odor is present. No probe to bone. Erythema noted around the wound. No purulent discharge is noted. VASC: Non-Palpable DP and PT noted B/L, TELEPHONE INFORMATION CLERK less than 3 seconds noted to all digits NEURO: Gross sensation diminished ORTHO: No pain on palpation to joints distal to ankle joint - Neurological Exam Neurological exam: Alert, Oriented x3 - Psychiatric Exam Psychiatric exam: Normal Mood - Skin Skin Exam: Normal Color, Warm Results - Vital Signs Recent Vital Signs: Last Vital Signs Temp 98.6 F 09/26/16 04:00 Pulse 96 H 09/26/16 15:40 Resp 24 09/26/16 15:40 BP 110/72 09/26/16 15:00 Pulse Ox 100 09/26/16 15:40 - Labs Result Diagrams: 09/26/16 05:15 09/26/16 05:15 Labs: Laboratory Results - last 24 hr 09/24/16 09/25/16 09/25/16 15:30 09:05 12:21 WBC RBC Hgb Hct MCV MCH MCHC RDW Plt Count Gran % Lymph % (Auto) [place] % (Auto) Eos % (Auto) Baso % (Auto) Gran # Lymph # [place] # Eos # Baso # pCO2 pO2 HCO3 ABG pH ABG Total CO2 ABG O2 Saturation ABG O2 Content ABG Base Excess ABG Hemoglobin ABG Carboxyhemoglobin POC ABG HHb (Measured) ABG Methemoglobin ABG O2 Capacity Hgb O2 Saturation FiO2 Sodium Potassium Chloride Carbon Dioxide Anion Gap BUN Creatinine Est GFR ( Amer) Est GFR (Non-Af Amer) POC Glucose (mg/dL) 125 H 152 H Random Glucose Hemoglobin A1c 16.4 H Calcium Total Bilirubin AST ALT Alkaline Phosphatase Total Protein Albumin Globulin Albumin/Globulin Ratio Procalcitonin HIV 1&2 Ag/Ab, 4th Gen 09/25/16 09/25/16 09/25/16 16:24 16:50 19:42 WBC RBC Hgb Hct MCV MCH MCHC RDW Plt Count Gran % Lymph % (Auto) [place] % (Auto) Eos % (Auto) Baso % (Auto) Gran # Lymph # [place] # Eos # Baso # pCO2 pO2 HCO3 ABG pH ABG Total CO2 ABG O2 Saturation ABG O2 Content ABG Base Excess ABG Hemoglobin ABG Carboxyhemoglobin POC ABG HHb (Measured) ABG Methemoglobin ABG O2 Capacity Hgb O2 Saturation FiO2 Sodium Potassium Chloride Carbon Dioxide Anion Gap BUN Creatinine Est GFR ( Amer) Est GFR (Non-Af Amer) POC Glucose (mg/dL) 190 H 369 H Random Glucose Hemoglobin A1c Calcium Total Bilirubin AST ALT Alkaline Phosphatase Total Protein Albumin Globulin Albumin/Globulin Ratio Procalcitonin HIV 1&2 Ag/Ab, 4th Gen Nonreactive 09/25/16 09/26/16 09/26/16 22:15 01:18 04:15 WBC RBC Hgb Hct MCV MCH MCHC RDW Plt Count Gran % Lymph % (Auto) [place] % (Auto) Eos % (Auto) Baso % (Auto) Gran # Lymph # [place] # Eos # Baso # pCO2 pO2 HCO3 ABG pH ABG Total CO2 ABG O2 Saturation ABG O2 Content ABG Base Excess ABG Hemoglobin ABG Carboxyhemoglobin POC ABG HHb (Measured) ABG Methemoglobin ABG O2 Capacity Hgb O2 Saturation FiO2 Sodium Potassium Chloride Carbon Dioxide Anion Gap BUN Creatinine Est GFR ( Amer) Est GFR (Non-Af Amer) POC Glucose (mg/dL) 412 H* 214 H 302 H Random Glucose Hemoglobin A1c Calcium Total Bilirubin AST ALT Alkaline Phosphatase Total Protein Albumin Globulin Albumin/Globulin Ratio Procalcitonin HIV 1&2 Ag/Ab, 4th Gen 09/26/16 09/26/16 09/26/16 05:15 07:02 07:30 WBC 10.5 RBC 4.05 Hgb 10.7 L Hct 34.4 L MCV 84.9 MCH 26.4 MCHC 31.1 RDW 16.4 H Plt Count 120 Gran % 81.5 H Lymph % (Auto) 13.6 L [place] % (Auto) 4.8 Eos % (Auto) 0.1 L Baso % (Auto) 0.0 Gran # 8.59 H Lymph # 1.4 [place] # 0.5 Eos # 0.0 Baso # 0.00 pCO2 pO2 HCO3 ABG pH ABG Total CO2 ABG O2 Saturation ABG O2 Content ABG Base Excess ABG Hemoglobin ABG Carboxyhemoglobin POC ABG HHb (Measured) ABG Methemoglobin ABG O2 Capacity Hgb O2 Saturation FiO2 Sodium 142 Potassium 4.1 Chloride 108 Carbon Dioxide 21 Anion Gap 17 BUN 89 H Creatinine 4.8 H Est GFR ( Amer) 11 Est GFR (Non-Af Amer) 9 POC Glucose (mg/dL) 262 H Random Glucose 660 H* Hemoglobin A1c Calcium 7.6 L Total Bilirubin 0.7 AST 111 H ALT 27 Alkaline Phosphatase 82 Total Protein 5.9 Albumin 2.3 L Globulin 3.6 Albumin/Globulin Ratio 0.6 L Procalcitonin 3.23 H HIV 1&2 Ag/Ab, 4th Gen 09/26/16 09/26/16 09/26/16 08:36 09:53 10:45 WBC RBC Hgb Hct MCV MCH MCHC RDW Plt Count Gran % Lymph % (Auto) [place] % (Auto) Eos % (Auto) Baso % (Auto) Gran # Lymph # [place] # Eos # Baso # pCO2 37 pO2 126.0 H HCO3 18.2 L ABG pH 7.30 L ABG Total CO2 19.3 L ABG O2 Saturation 98.7 H ABG O2 Content 14.5 L ABG Base Excess -7.6 L ABG Hemoglobin 10.5 L ABG Carboxyhemoglobin 1.5 POC ABG HHb (Measured) 1.3 ABG Methemoglobin 0.9 ABG O2 Capacity 14.7 L Hgb O2 Saturation 96.3 FiO2 32.0 Sodium Potassium Chloride Carbon Dioxide Anion Gap BUN Creatinine Est GFR ( Amer) Est GFR (Non-Af Amer) POC Glucose (mg/dL) 471 H* 496 H* Random Glucose Hemoglobin A1c Calcium Total Bilirubin AST ALT Alkaline Phosphatase Total Protein Albumin Globulin Albumin/Globulin Ratio Procalcitonin HIV 1&2 Ag/Ab, 4th Gen 09/26/16 09/26/16 11:59 16:16 WBC RBC Hgb Hct MCV MCH MCHC RDW Plt Count Gran % Lymph % (Auto) [place] % (Auto) Eos % (Auto) Baso % (Auto) Gran # Lymph # [place] # Eos # Baso # pCO2 pO2 HCO3 ABG pH ABG Total CO2 ABG O2 Saturation ABG O2 Content ABG Base Excess ABG Hemoglobin ABG Carboxyhemoglobin POC ABG HHb (Measured) ABG Methemoglobin ABG O2 Capacity Hgb O2 Saturation FiO2 Sodium Potassium Chloride Carbon Dioxide Anion Gap BUN Creatinine Est GFR ( Amer) Est GFR (Non-Af Amer) POC Glucose (mg/dL) > 500 H* 429 H* Random Glucose Hemoglobin A1c Calcium Total Bilirubin AST ALT Alkaline Phosphatase Total Protein Albumin Globulin Albumin/Globulin Ratio Procalcitonin HIV 1&2 Ag/Ab, 4th Gen Assessment & Plan - Assessment and Plan (Free Text) Assessment: 61 year old female patient with PMHx of obesity, diabetes, CKD, hypertension presents with chronic venous stasis ulceration to Right lower extremity Plan: Patient was seen at bedside with attending Dr. Hill labs and vitals reviewed Right lower extremity cleansed with saline Dressing applied to Right lower extremity with Betadine, DSD, ABD and REILLY Continue with multipodus boots B/L Continue with IV abx Podiatry will continue to follow in house Elongated, dystrophic toenails were charply debrided with a large nail nipper up to level of normal length without any incident <Maura Hill - Last Filed: 09/28/16 15:00> Meds - Medications Medications: Current Medications Acetaminophen (Tylenol 325mg Tab) 650 mg PO Q6H PRN PRN Reason: pain moderate and higher Heparin Sodium (Porcine) (Heparin) 5,000 units SC Q8H [facility] PRN Reason: Protocol Last Admin: 09/28/16 14:33 Dose: 5,000 units Sodium Chloride (Sodium Chloride 0.45%) 1,000 mls @ 100 mls/hr IV .Q10H [facility] Last Admin: 03/15/17 12:05 Dose: 100 mls/hr Meropenem 500 mg/ Sodium (Chloride) 100 mls @ 100 mls/hr IVPB Q12 [facility] PRN Reason: Protocol Stop: 10/04/16 10:01 Last Admin: 09/28/16 12:05 Dose: 100 mls/hr Potassium Chloride (Potassium Chloride 20 Meq/100 Ml) 100 mls @ 50 mls/hr IVPB Q2H [facility] Stop: 09/28/16 15:59 Last Admin: 09/28/16 14:33 Dose: 50 mls/hr Insulin Human NPH (Humulin N) 20 units SC HS [facility] Last Admin: 09/27/16 21:28 Dose: 20 units Insulin Human Regular (Humulin R Low) 0 units SC ACHS [facility] PRN Reason: Protocol Last Admin: 09/28/16 14:45 Dose: Not Given Multivitamins/Minerals (Therapeutic-M Tab) 1 tab PO DAILY [facility] Last Admin: 09/28/16 12:07 Dose: 1 tab Pantoprazole Sodium (Protonix Inj) 40 mg IVP DAILY [facility] Last Admin: 09/28/16 12:05 Dose: 40 mg Silver Sulfadiazine (Silvadene 1% 20 Gm) 1 ea TOP Q12H [facility] Last Admin: 09/28/16 05:07 Dose: Not Given Vitamin A (Vitamin A & D Oint Ud Foilpak) 1 ea TOP BID [facility] Last Admin: 09/28/16 12:07 Dose: 1 ea Results - Vital Signs Recent Vital Signs: Last Vital Signs Temp 98.7 F 09/28/16 12:00 Pulse 91 H 09/28/16 12:00 Resp 18 09/28/16 12:00 BP 97/59 L 09/28/16 12:00 Pulse Ox 100 09/27/16 02:00 - Labs Result Diagrams: 09/28/16 10:05 09/28/16 10:05 Labs: Laboratory Results - last 24 hr 09/27/16 09/27/16 09/28/16 16:05 22:09 07:53 WBC RBC Hgb Hct MCV MCH MCHC RDW Plt Count Neutrophils % (Manual) Lymphocytes % (Manual) Monocytes % (Manual) Basophils % (Manual) Large Platelets ESR Sodium Potassium Chloride Carbon Dioxide Anion Gap BUN Creatinine Est GFR ( Amer) Est GFR (Non-Af Amer) POC Glucose (mg/dL) 378 H 232 H 164 H Random Glucose Calcium Total Bilirubin AST ALT Alkaline Phosphatase Total Creatine Kinase CK-MB (CK-2) CK-MB (CK-2) % Total Protein Albumin Globulin Albumin/Globulin Ratio Amylase Lipase 09/28/16 10:05 WBC 13.2 H RBC 3.93 Hgb 10.6 L Hct 33.3 L MCV 84.7 MCH 27.0 MCHC 31.8 RDW 16.5 H Plt Count 112 L Neutrophils % (Manual) 87 H Lymphocytes % (Manual) 11 L Monocytes % (Manual) 1 Basophils % (Manual) 1 Large Platelets Present ESR 59 H Sodium 149 H Potassium 2.9 L* Chloride 119 H Carbon Dioxide 24 Anion Gap 9 L BUN 54 H Creatinine 2.0 H Est GFR ( Amer) 30 Est GFR (Non-Af Amer) 25 POC Glucose (mg/dL) Random Glucose 210 H Calcium 8.3 L Total Bilirubin 0.7 AST 65 H ALT 18 Alkaline Phosphatase 76 Total Creatine Kinase 2481 H CK-MB (CK-2) 2.7 CK-MB (CK-2) % Cancelled Total Protein 6.2 Albumin 2.3 L Globulin 3.8 Albumin/Globulin Ratio 0.6 L Amylase 361 H Lipase 5588 H Attending/Attestation - Attestation I have personally seen and examined this patient.: Yes I have fully participated in the care of the patient.: Yes I have reviewed all pertinent clinical information: Yes
[2016-09-26] MEDS ORDERED: Insulin Detemir 100 units/ml Vial (Levemir) SC SCH (20:00)
[2016-09-27] MEDS: Insulin Lispro (humaLOG) MEDIUM Coverage SC SCH ×3 (04:00→07:47)
[2016-09-27 06:27] LABS: HEMATOCRIT 33.5 % (36.0-48.0); MEAN CELL VOLUME 83.5 fL (80.0-105.0); MEAN CORPUSCULAR HEMOGLOBIN 26.4 pg (25.0-35.0); MEAN CORPUSCULAR HGB CONC 31.6 g/dl (31.0-37.0); PLATELET COUNT 124 10^3/uL (120.0-450.0); RED CELL DISTRIBUTION WIDTH 16.4 % (11.5-14.5); WHITE BLOOD COUNT 12.3 10^3/ul (4.5-11.0)
[2016-09-27] MEDS: Silver Sulfadiazine 1% Cream (20 gm) TOP SCH ×3 (06:30→17:32)
[2016-09-27] MEDS: Sodium Chloride 0.45% 1,000 ML IV SCH ×2 (06:32→14:17)
[2016-09-27 06:33] LABS: ADD MANUAL DIFF? YES
[2016-09-27 06:44] LABS: ALB/GLOB RATIO 0.7 (1.1-1.8); BILIRUBIN,TOTAL 0.7 mg/dL (0.2-1.3); CALCIUM 8.1 mg/dL (8.4-10.5); POTASSIUM 3.2 mmol/L (3.6-5.0); TOTAL PROTEIN 5.9 g/dL (5.8-8.3)
--- NOTE | 2016-09-27 09:05 | CON ---
DATE: 09/26/2016 CONSULTATION REQUESTED BY: Dr. Logan. REASON FOR CONSULTATION: Acute renal failure. HISTORY OF PRESENT ILLNESS: The patient is a patient previously unknown to me. This 61-year-old fem dale was brought to the ED, after family contacted EMS when they the patient did not respond to knocks on her door, she had not been seen for approximately 3 days. When EMS arrived, they noticed her glu cose to be greater than 600. She was immediately brought to [facility]'s Emergency Depar tment. On arrival, the patient had a blood pressure of 126/81 with a heart rate of 116, breathing at 10 breaths per minute and an oxygen saturation of 98%. Oral temperature was 100.4 degrees. Laborat ory studies were notable for a potassium of 7.7, she is not hemolyzed and BUN/creatinine are 92/7.1. Of note, the patient has never been here at [facility]. There were no previous labs. G lucose was noted to be 1400, bicarbonate was 15 with an anion gap of 35. The patient was also noted to have an elevated lactic acid level of 3.7, which increased to as high as 4.8. Of note her glucose on arrival was 1400 such that her corrected sodium was almost 106. CPK was also elevated at 4348. Urinalysis did not reveal the presence of any ketones, but did show specific gravity of 1.015 with gl ucosuria, small blood and trace protein. Toxicology was negative for any drugs of abuse. The patien t is noted to be HIV negative as well. CT scan of the patient's head on admission without contrast d id not reveal any acute pathology either. Chest x-ray suggestive of atelectasis, but the patient's d id have a CT scan of her chest, abdomen and pelvis, (without oral or IV contrast), which did not reve al any acute pathology. Inman catheter was demonstrated to be in the bladder. The patient did have an enlarged left adrenal gland with evidence of prior biopsy and the gland itself was 4 cm. Kidneys appeared unremarkable. The patient was admitted to the intensive care unit for further evaluation an d management. While in the ICU she was aggressively hydrated with intravenous fluids and was also st arted on an insulin infusion as well. Since having been admitted, her potassium has improved and her creatinine has decreased from 7.1-4.8. It is unclear what her baseline value is. CPK has not been rechecked. Of note, after the patient was admitted it was ascertained that she has a known history o f medication noncompliance. REVIEW OF SYSTEMS: Obtained across all 10 systems in 14 points and is negative unless stated otherwi se above. PAST MEDICAL HISTORY: Significant for type 2 diabetes mellitus, hypertension, chronic kidney disease with an unknown baseline creatinine, and lower extremity venous ulcers as well. MEDICATIONS: The patient had been taking prior to admission were unknown, but may have included Sergei via. ALLERGIES: The patient had no known drug allergies. SOCIAL HISTORY: Notable for the patient living by herself, although family does periodically check u p on her. There is no documented tobacco, alcohol or illicit drug use. FAMILY HISTORY: Negative for any inheritable renal or electrolyte disorders and was otherwise noncon tributory. PHYSICAL EXAMINATION: GENERAL APPEARANCE: I saw the patent lying in bed. She was lethargic, but arousable, but did not ap pear to have any complaints. Overall, her hygiene appeared to be quite poor. VITAL SIGNS: Blood pressure is 95/51 in the last 24-hour period. Minimum blood pressure was 88/57 w ith a maximum of 134/74, heart rate is 96, but has ranged from the 80s to approximately 105 beats per minute since admission, oral temperature is 98.2, and the patient has a T-max of 100.4 since admiss ion. Respiratory rate is 24 beats per minute, but has ranged from the 20s to approximately 40 breath s per minute in the last 24-hour period. Oxygen saturation is 100%, but has ranged from 95-100% on 2 liters oxygen via nasal cannula. I's and O's in the last 24-hour period are 3400/3200. The remaind er of the exam was as follows. HEENT: As stated above, the patient's hygiene is rather poor. She appeared to be unkempt. She was normocephalic, atraumatic. There was no sinus tenderness. NECK: Supple with a full range of motion. Trachea was midline and freely movable. Thyroid was nont krishna nor was it enlarged. There was no jugular venous distention that I could appreciate. Conjunct ivae were neither pale nor were they icteric. CHEST: Lung pacheco on my exam were grossly clear to auscultation, but the patient was not cooperativ e with deep breaths. CARDIAC: Regular rate and rhythm without any rubs or gallops. There were no heaves and the PMI was not displaced laterally. ABDOMEN: Soft, distended, but nontender. There was no rebounding, guarding or rigidity. There was no hepatosplenomegaly. EXTREMITIES: Had 1+ sacral edema. The patient also had chronic stasis changes as well. SKIN: She had thickening of the skin over both shins, she also had onychomycosis. NEUROLOGIC: She was lethargic, but arousable. VASCULAR: No bruits. LABORATORY STUDIES: White count is 10.5, H and H 10.7/34.4 with a platelet count of 120,000. There are 82% neutrophils, 14% lymphocytes, 5% monocytes. INR was 1.13, PTT is 22.2. Most recent ABG has a pH of 7.30 with a pCO2 of 37, PaO2 of 126, and oxygen saturation of 96%. Lactic acid level is now within normal at 2.0, glucose is 436. Chemistry panel most recently had a sodium 142, potassium is 4 .1, chloride 108, bicarbonate 21, BUN/creatinine is 89/4.8 with a glucose of 660, calcium was 7.6, bu t after correcting it was in the 2.3 it becomes 8.9. Procalcitonin is 3.3, lipase was as high as 252 5. Urinalysis was yellow, clear with a pH of 6, specific gravity of 1.015, trace protein, small bloo d glucose greater than 1000. Urine sodium was low at 23. Drug urine toxicology was negative for wolf gs of abuse. The patient is HIV negative. Cultures of the patient's right lower extremity have grow n out gram-negative rods as well as gram-positive cocci, but blood cultures are negative. Imaging is as stated above. Echocardiogram was performed with the results still pending. Lower extremity veno us Doppler was limited. There was no DVT present. IMPRESSION AND PLAN: The patient is a 61-year-old obese female (BMI 38 kg/m2) with type 2 diabetes m ellitus that is uncontrolled, chronic kidney disease with an unknown baseline creatinine, who was bro ught to [facility] after family had not heard from her in several days and noted to have hyperosmolar nonketotic syndrome with lactic acidosis and acute kidney injury. She was also noted to have hyperkalemia, rhabdomyolysis and chemical pancreatitis as well. With respect to the patient's acute kidney injury on presentation, her glucose was noted to be 1399 and her corrected sodium was a pproximately 169, corresponding to water deficit of almost 12 liters, consistent with this profound d ehydration is the fact that while the patient was in the ED, her blood pressure was recorded as being as low as 59/32. I suspect the etiology of the patient's hypotension was secondary to osmotic diure sis from glucosuria arising from hyperosmolar nonketotic syndrome and her lactic acidosis represents type A lactic acidosis. It does not appear that she had been on metformin prior to admission, in add ition her glucosuria resulted in a prerenal as manifest by her dehydration, the patient is also noted to have an elevated CPK, which may have arisen either from a seizure or fall and she was also sequestering some volume in her damaged muscle. Her pancreas also reveals evidence of pancreatitis, although this was not demonstrated radiographically and thus she could have been sequestering fluids there as well. We will need to repeat the patient's CPK to see that it is decreasing, but at present since the preliminary report of her echocardiogram does not reveal significant left ventricular syst olic dysfunction, I would continue intravenous fluids in this patient. Based on her last blood work, she still is hypernatremic with a corrected sodium of approximately 155, her bicarbonate level is 21 ; however, an anion gap is 12. We will repeat a CPK on this patient and if the CPK remains elevated she will need ongoing isotonic intravenous fluids, which will also facilitate glucose excretion in th e urine and I would give her normal saline at approximately 150 mL per hour. If her CPK is not eleva raquel, then perhaps we can do one-half normal saline at 200 mL per hour to also provide some water to c orrect her dehydration and free water deficit. Her hemoglobin A1c was noted to be 16.4%, so obviousl y the patient will require close followup upon discharge. The fact that her urinalysis has a specifi c gravity that is 1.015 and she is not isotonic anuric and I believe that her urine sodium is low, I suggests that she does have ongoing room for improvement in her renal function if the above measures are taken. Infectious disease followup is appreciated in this patient and she is on cefepime and did receive 1 dose of vancomycin and is starting Zyvox for the cultures report from the patient's right lower extremity wound, which revealed gram negative rods as well as gram-positive cocci, when the mohan ntification is finally provided these may change. The patient has also been seen by endocrinology an d her basal insulin has been increased to 20 units subcutaneously twice daily while she also remains on low-dose Humalog sliding scale as well. There was a concern that she may have suffered hypoxic en cephalopathy also, although she was able to articulate somewhat with respect to the etiology of her h yperosmolar nonketotic syndrome and it could certainly be secondary to bilateral lower extremity ulce rations or dietary indiscretions or medication noncompliance. For deep venous thrombosis prophylaxis in this patient who is now bedbound in the ICU we will continue subcutaneous heparin and for gastroi ntestinal prophylaxis, she is on pantoprazole. She has also been started on a consistent carbohydrat e diet today as well. I will be following this complex patient closely for the above complex medical problems. I thank you very much for the courtesy of this consultation. More than 35 minutes were spent in the care of this ICU patient today. Bhargav Pizano MD cc: [id number] TT: 09/27/2016 09:05:04 Confirmation # [id number] Dictation # [id number] tn
--- NOTE | 2016-09-27 09:22 | CP.PCM.PN ---
Addendum entered and electronically signed by Ruthy Sterling DO 09/27/16 16:27: Discontinued linezolid Original Note: <Ruthy Sterling - Last Filed: 09/27/16 16:09> Subjective - Date & Time of Evaluation Date of Evaluation: 09/27/16 Time of Evaluation: 07:00 - Subjective Subjective: Patient seen and examined at bedside. No acute events overnight. Patient resting in bed comfortably. Patient easily startled. Patient is awake, alert, orientated x 3 today. Remains on 2L O2 via nasal cannula. Denies of having headache, fever, chills, nausea, vomiting, or abdominal pain. Objective - Vital Signs/Intake and Output Vital Signs (last 24 hours): Temp Pulse Resp BP Pulse Ox 97.8 F 88 96 H 85/45 L 100 09/27/16 04:00 09/27/16 06:00 09/27/16 06:00 09/27/16 06:00 09/27/16 02:00 Intake and Output: 09/27/16 09/27/16 06:59 18:59 Intake Total 1300 Output Total 1200 Balance 100 - Medications Medications: Current Medications Acetaminophen (Tylenol 325mg Tab) 650 mg PO Q6H PRN PRN Reason: pain moderate and higher Heparin Sodium (Porcine) (Heparin) 5,000 units SC Q8H [facility] PRN Reason: Protocol Last Admin: 09/26/16 21:11 Dose: 5,000 units Cefepime HCl (Maxipime 1gm) 100 mls @ 100 mls/hr IVPB Q24H [facility] PRN Reason: Protocol Last Admin: 09/26/16 09:10 Dose: 100 mls/hr Sodium Chloride (Sodium Chloride 0.45%) 1,000 mls @ 100 mls/hr IV .Q10H [facility] Last Admin: 09/27/16 06:32 Dose: 100 mls/hr Linezolid (Zyvox 600mg/300ml D5w) 300 mls @ 200 mls/hr IVPB Q12 [facility] PRN Reason: Protocol Stop: 10/01/16 10:01 Last Admin: 09/26/16 21:12 Dose: 200 mls/hr Potassium Chloride (Potassium Chloride 20 Meq/100 Ml) 100 mls @ 50 mls/hr IVPB Q2H [facility] Stop: 09/27/16 11:29 Insulin Detemir (Levemir) 40 unit SC Q12H [facility] Insulin Human Lispro (Humalog Med) 0 units SC Q4H [facility] PRN Reason: Protocol Last Admin: 09/27/16 07:47 Dose: 8 units Pantoprazole Sodium (Protonix Inj) 40 mg IVP DAILY [facility] Last Admin: 09/26/16 09:10 Dose: 40 mg Silver Sulfadiazine (Silvadene 1% 20 Gm) 1 ea TOP Q12H [facility] Last Admin: 09/27/16 06:30 Dose: Not Given Vitamin A (Vitamin A & D Oint Ud Foilpak) 1 ea TOP BID [facility] - Labs Labs: 09/27/16 05:00 09/27/16 05:00 PT 12.2 Seconds (9.9-11.8) H 09/24/16 13:10 INR 1.13 (0.93-1.08) H 09/24/16 13:10 APTT 22.2 Seconds (23.7-30.8) L 09/24/16 13:10 - Constitutional Appears: Non-toxic, No Acute Distress, Chronically Ill - Head Exam Head Exam: ATRAUMATIC, NORMOCEPHALIC - Eye Exam Eye Exam: PERRL Pupil Exam: PERRL - ENT Exam ENT Exam: Mucous Membranes Moist Additional comments: on Nasal Cannula - Neck Exam Neck Exam: Normal Inspection - Respiratory Exam Respiratory Exam: Clear to Ausculation Bilateral, NORMAL BREATHING PATTERN. absent: Wheezes, Respiratory Distress - Cardiovascular Exam Cardiovascular Exam: REGULAR RHYTHM, RRR, +S1, +S2. absent: Murmur - GI/Abdominal Exam GI & Abdominal Exam: Soft, Normal Bowel Sounds. absent: Bruit, Distended, Guarding, Tenderness - Exam Additional comments: Morel in place - Extremities Exam Extremities Exam: Full ROM, Joint Swelling, Normal Capillary Refill, Pedal Edema Additional comments: Wound dressing changed by podiatry. Clean, dry, intact no drainage appreciated. - Back Exam Back Exam: NORMAL INSPECTION - Neurological Exam Neurological Exam: Alert, Awake, Oriented x3 Additional comments: slow speech - Psychiatric Exam Psychiatric exam: Normal Affect, Normal Mood - Skin Skin Exam: Dry, Warm Assessment and Plan - Assessment and Plan (Free Text) Assessment: 61 year old female with past medical history of diabetes, CKD ( not on HD), hypertension, and LE venous stasis ulcersadmitted to ICU for HONK and sepsis likely secondary to b/l lower extremity ulcerations. HONK resolved, uncontrolled diabetes - Follow endocrinology recommendations - Humulin NPH 20units HS - Humulin 70/30 40units ac breakfast, 30units ac dinner - Regular insulin low dose algorithm - Hgb A1c 16.4 - stem cleaning machine feeder referral - Consistent carbohydrate diet Sepsis - Afebrile, WBC 12.3 - likely secondary to b/l le ulcerations - Right leg culture grew klebsiella Pneumoniae and Staphylococcus Aureus - No growth on Blood and urine cultures - Continue antibiotics meropenem, linezolid - Follow ID's recommendations Hypernatremia - Follow nephrology recommendations - IVF NS - 147 today, continue to monitor - change to 1/2 NS once CPK improved ORI 2/2 Rhabdomyolysis - Follow nephrology recommendations - IVF NS @100ml/hr - trend CPK - lactic acid, downtrending - morel in place, output 3300cc Ulcers b/l leg - wound care per podiatry - Silvadene, vitamin A&D - Bilateral lower extremity duplex no evidence of DVT Elevated lipase - Follow GI and nephrology recommendations - CT abdomen showed no signs of pancreatits - Likely due to hypoperfusion 2/2 sepsis - Follow up amylase and Lipase - Continue IVF r/o Seizure -Neurology recommended discontinued keppra -EEG report pending Prophylactic measures -Protonix IV for GI ppx -Heparin 5000 units SC Q8 for DVT ppx -Passed swallow eval -PT OT eval <Greg Montiel A - Last Filed: 09/27/16 16:36> Objective - Vital Signs/Intake and Output Vital Signs (last 24 hours): Temp Pulse Resp BP Pulse Ox 98.3 F 100 H 20 103/63 100 09/27/16 15:00 09/27/16 15:00 09/27/16 15:00 09/27/16 15:00 09/27/16 02:00 Intake and Output: 09/27/16 09/27/16 06:59 18:59 Intake Total 1300 Output Total 1200 Balance 100 - Medications Medications: Current Medications Acetaminophen (Tylenol 325mg Tab) 650 mg PO Q6H PRN PRN Reason: pain moderate and higher Heparin Sodium (Porcine) (Heparin) 5,000 units SC Q8H [facility] PRN Reason: Protocol Last Admin: 09/27/16 14:16 Dose: 5,000 units Sodium Chloride (Sodium Chloride 0.45%) 1,000 mls @ 100 mls/hr IV .Q10H [facility] Last Admin: 09/27/16 14:17 Dose: 100 mls/hr Meropenem 500 mg/ Sodium (Chloride) 100 mls @ 100 mls/hr IVPB Q12 [facility] PRN Reason: Protocol Stop: 10/04/16 10:01 Last Admin: 09/27/16 13:41 Dose: 100 mls/hr Insulin Human NPH (Humulin N) 20 units SC HS [facility] Insulin Human Regular (Humulin R Low) 0 units SC ACHS [facility] PRN Reason: Protocol Pantoprazole Sodium (Protonix Inj) 40 mg IVP DAILY [facility] Last Admin: 09/27/16 09:37 Dose: 40 mg Silver Sulfadiazine (Silvadene 1% 20 Gm) 1 ea TOP Q12H [facility] Last Admin: 09/27/16 12:25 Dose: Not Given Vitamin A (Vitamin A & D Oint Ud Foilpak) 1 ea TOP BID [facility] Last Admin: 09/27/16 09:53 Dose: 1 ea - Labs Labs: 09/27/16 05:00 09/27/16 05:00 PT 12.2 Seconds (9.9-11.8) H 09/24/16 13:10 INR 1.13 (0.93-1.08) H 09/24/16 13:10 APTT 22.2 Seconds (23.7-30.8) L 09/24/16 13:10 Attending/Attestation - Attestation I have personally seen and examined this patient.: Yes I have fully participated in the care of the patient.: Yes I have reviewed all pertinent clinical information, including history, physical exam and plan: Yes Notes (Text): 09/27/16 16:33 61 year old female with past medical history of diabetes, hypertension, and ? CKD who presented with altered mental status. She was found to have HONK and started on IV fluids and insulin. She is being followed by endocrinology who is adjusting her levemir. She was also found to have sepsis, likely from LE ulcerations. Continue with iv antibiotics as per ID and wound care as per podiatry. Her mental status has improved this morning. She had EEG yesterday which we will follow. Will follow up with neurology recommendations. Nephrology and GI evaluation were appreciated as well. Continue with iv fluids. Continue to monitor her creatinine closely. Greg Montiel MD Hospitalist.
[2016-09-27] MEDS: Potassium Chloride 20 mEq 100 ML IVPB SCH ×2 (09:36→11:35)
[2016-09-27] MEDS: Vitamins A & D Oint UD Foilpak TOP SCH ×2 (09:53→17:32)
[2016-09-27] MEDS ORDERED: Insulin Detemir 100 units/ml Vial (Levemir) SC SCH (10:00)
--- NOTE | 2016-09-27 11:03 | CP.CCUPN ---
<Valerie Kim - Last Filed: 09/27/16 10:59> CCU Subjective - Physician Review Events Since Last Encounter (Free Text): 09/27/16 10:59 Patient seen and examined bedside. No acute events overnight. Patient AAOx3, mental status significantly improved as compared to yesterday. Patient tolerating PO diet. BS still in 400, AG closed. Patient currently denies CP, SOB , abd pain, n/v, chills, headache, dizziness. Critical Care Time Spent (in minutes): 35 CCU Objective - Vital Signs / Intake & Output Intake and Output (Last 8hrs): Intake & Output 09/26/16 09/27/16 09/27/16 22:59 06:59 14:59 Intake Total 1650 1300 Output Total 2100 1200 Balance -450 100 Intake: IV 1400 1200 Right Antecubital 1400 1200 Oral 250 100 Output: Urine 2100 1200 Urethral ([place]) 2100 1200 Other: Voiding Method Indwelling Catheter Indwelling Catheter # Bowel Movements 0 - Physical Exam Head: Positive for: Atraumatic, Normocephalic Pupils: Positive for: PERRL Extroacular Muscles: Positive for: EOMI Conjunctiva: Positive for: Normal Mouth: Positive for: Moist Mucous Membranes Pharnyx: Negative for: ERYTHEMA Nose (Internal): Positive for: Normal Inspection Neck: Positive for: Normal Range of Motion Respiratory/Chest: Positive for: Clear to Auscultation, Decreased Breath Sounds (bilateral but equal). Negative for: Respiratory Distress, Accessory Muscle Use , Rhonchi Cardiovascular: Positive for: Regular Rate and Rhythm, Normal S1, S2, Tachycardic Abdomen: Positive for: Normal Bowel Sounds. Negative for: Tenderness, Distention, Peritoneal Signs, Rebound, Guarding Lower Extremity: Positive for: Edema (bilateral edema with venous stasis changes ), Other (superficial ulcers on bilateral anterior tibial areas) Neurological: Positive for: GCS=15, Other (GCS is 6; patient with L upper extremity twitching with possible LUE decorticate posturing). Negative for: Speech Normal Skin: Positive for: Warm, Dry, Normal Color. Negative for: Rashes Psychiatric: Positive for: Alert, Oriented x 3 - Medications Active Medications: Active Medications Generic Name Dose Route Start Last Admin Trade Name Freq PRN Reason Stop Dose Admin Acetaminophen 650 mg 09/26/16 16:59 Tylenol 325mg Tab PO Q6H PRN pain moderate and higher Heparin Sodium (Porcine) 5,000 units 09/25/16 14:00 09/26/16 21:11 Heparin SC 5,000 units Q8H EMETERIO Administration Protocol Sodium Chloride 1,000 mls @ 100 mls/hr 09/26/16 08:15 09/27/16 06:32 Sodium Chloride 0.45% IV 100 mls/hr .Q10H EMETERIO Administration Linezolid 300 mls @ 200 mls/hr 09/26/16 10:00 09/26/16 21:12 Zyvox 600mg/300ml D5w IVPB 10/01/16 10:01 200 mls/hr Q12 EMETERIO Administration Protocol Potassium Chloride 100 mls @ 50 mls/hr 09/27/16 07:30 09/27/16 09:36 Potassium Chloride 20 Meq/100 Ml IVPB 09/27/16 11:29 50 mls/hr Q2H EMETERIO Administration Meropenem 500 mg/ Sodium 100 mls @ 100 mls/hr 09/27/16 10:00 Chloride IVPB 10/04/16 10:01 Q12 EMETERIO Protocol Insulin Detemir 40 unit 09/27/16 10:00 09/27/16 09:52 Levemir SC 40 unit Q12H EMETERIO Administration Insulin Human Lispro 0 units 09/27/16 12:00 Humalog High SC Q6 [facility] Protocol Pantoprazole Sodium 40 mg 09/24/16 14:00 09/27/16 09:37 Protonix Inj IVP 40 mg DAILY EMETERIO Administration Silver Sulfadiazine 1 ea 09/26/16 17:15 09/27/16 06:30 Silvadene 1% 20 Gm TOP Not Given Q12H EMETERIO Vitamin A 1 ea 09/27/16 10:00 09/27/16 09:53 Vitamin A & D Oint Ud Foilpak TOP 1 ea BID EMETERIO Administration - Patient Studies Lab Studies: Microbiology Studies 09/24/16 20:45 Gram Stain - Final Leg - Right Wound Culture - Final Klebsiella Pneumoniae Ssp Pneu Staphylococcus Aureus Lab Studies 09/27/16 09/26/16 09/26/16 Range/Units 05:00 18:43 16:16 WBC 12.3 H (4.5-11.0) 10^3/ul RBC 4.01 (3.5-6.1) 10^6/uL Hgb 10.6 L (12.0-16.0) gm/dL Hct 33.5 L (36.0-48.0) % MCV 83.5 (80.0-105.0) fL MCH 26.4 (25.0-35.0) pg MCHC 31.6 (31.0-37.0) g/dl RDW 16.4 H (11.5-14.5) % Plt Count 124 (120.0-450.0) 10^3/uL pCO2 (35-45) mm/Hg pO2 (80-100) mm/Hg HCO3 (21-28) mmol/L ABG pH (7.35-7.45) ABG Total CO2 (22-28) mmol.L ABG O2 Saturation (95-98) % ABG O2 Content (15-23) ML/dl ABG Base Excess (-2.0-3.0) mmol/L ABG Hemoglobin (11.7-17.4) g/dL ABG Carboxyhemoglobin (0.5-1.5) % POC ABG HHb (Measured) (0-5) % ABG Methemoglobin (0.0-3.0) % ABG O2 Capacity (16-24) mL/dl Hgb O2 Saturation (95.0-98.0) % FiO2 % Sodium 147 (132-148) mmol/L Potassium 3.2 L (3.6-5.0) mmol/L Chloride 115 H (98-107) mmol/L Carbon Dioxide 24 (21-33) mmol/L Anion Gap 11 (10-20) BUN 69 H (7-21) mg/dL Creatinine 3.0 H (0.5-1.4) mg/dL Est GFR ( Amer) 19 Est GFR (Non-Af Amer) 16 POC Glucose (mg/dL) 436 H* 429 H* (65-110) mg/dL Random Glucose 402 H* D (70-110) mg/dL Hemoglobin A1c (4.2-6.5) % Calcium 8.1 L (8.4-10.5) mg/dL Total Bilirubin 0.7 (0.2-1.3) mg/dL AST 67 H (15-39) U/L ALT 20 (7-56) U/L Alkaline Phosphatase 88 (38-133) U/L Total Creatine Kinase 3958 H (35-230) U/L CK-MB (CK-2) 6.9 H (0.0-3.6) ng/mL CK-MB (CK-2) % 0.2 L (2.5-3.0) % Total Protein 5.9 (5.8-8.3) g/dL Albumin 2.3 L (3.0-4.8) g/dL Globulin 3.5 gm/dL Albumin/Globulin Ratio 0.7 L (1.1-1.8) Procalcitonin (0.19-0.49) NG/ML HIV 1&2 Ag/Ab, 4th Gen (Nonreactive) 09/26/16 09/26/16 09/26/16 Range/Units 11:59 10:45 09:53 WBC (4.5-11.0) 10^3/ul RBC (3.5-6.1) 10^6/uL Hgb (12.0-16.0) gm/dL Hct (36.0-48.0) % MCV (80.0-105.0) fL MCH (25.0-35.0) pg MCHC (31.0-37.0) g/dl RDW (11.5-14.5) % Plt Count (120.0-450.0) 10^3/uL pCO2 37 (35-45) mm/Hg pO2 126.0 H (80-100) mm/Hg HCO3 18.2 L (21-28) mmol/L ABG pH 7.30 L (7.35-7.45) ABG Total CO2 19.3 L (22-28) mmol.L ABG O2 Saturation 98.7 H (95-98) % ABG O2 Content 14.5 L (15-23) ML/dl ABG Base Excess -7.6 L (-2.0-3.0) mmol/L ABG Hemoglobin 10.5 L (11.7-17.4) g/dL ABG Carboxyhemoglobin 1.5 (0.5-1.5) % POC ABG HHb (Measured) 1.3 (0-5) % ABG Methemoglobin 0.9 (0.0-3.0) % ABG O2 Capacity 14.7 L (16-24) mL/dl Hgb O2 Saturation 96.3 (95.0-98.0) % FiO2 32.0 % Sodium (132-148) mmol/L Potassium (3.6-5.0) mmol/L Chloride (98-107) mmol/L Carbon Dioxide (21-33) mmol/L Anion Gap (10-20) BUN (7-21) mg/dL Creatinine (0.5-1.4) mg/dL Est GFR ( Amer) Est GFR (Non-Af Amer) POC Glucose (mg/dL) > 500 H* 496 H* (65-110) mg/dL Random Glucose (70-110) mg/dL Hemoglobin A1c (4.2-6.5) % Calcium (8.4-10.5) mg/dL Total Bilirubin (0.2-1.3) mg/dL AST (15-39) U/L ALT (7-56) U/L Alkaline Phosphatase (38-133) U/L Total Creatine Kinase (35-230) U/L CK-MB (CK-2) (0.0-3.6) ng/mL CK-MB (CK-2) % (2.5-3.0) % Total Protein (5.8-8.3) g/dL Albumin (3.0-4.8) g/dL Globulin gm/dL Albumin/Globulin Ratio (1.1-1.8) Procalcitonin (0.19-0.49) NG/ML HIV 1&2 Ag/Ab, 4th Gen (Nonreactive) 09/26/16 09/25/16 09/24/16 Range/Units 07:30 16:50 15:30 WBC (4.5-11.0) 10^3/ul RBC (3.5-6.1) 10^6/uL Hgb (12.0-16.0) gm/dL Hct (36.0-48.0) % MCV (80.0-105.0) fL MCH (25.0-35.0) pg MCHC (31.0-37.0) g/dl RDW (11.5-14.5) % Plt Count (120.0-450.0) 10^3/uL pCO2 (35-45) mm/Hg pO2 (80-100) mm/Hg HCO3 (21-28) mmol/L ABG pH (7.35-7.45) ABG Total CO2 (22-28) mmol.L ABG O2 Saturation (95-98) % ABG O2 Content (15-23) ML/dl ABG Base Excess (-2.0-3.0) mmol/L ABG Hemoglobin (11.7-17.4) g/dL ABG Carboxyhemoglobin (0.5-1.5) % POC ABG HHb (Measured) (0-5) % ABG Methemoglobin (0.0-3.0) % ABG O2 Capacity (16-24) mL/dl Hgb O2 Saturation (95.0-98.0) % FiO2 % Sodium (132-148) mmol/L Potassium (3.6-5.0) mmol/L Chloride (98-107) mmol/L Carbon Dioxide (21-33) mmol/L Anion Gap (10-20) BUN (7-21) mg/dL Creatinine (0.5-1.4) mg/dL Est GFR ( Amer) Est GFR (Non-Af Amer) POC Glucose (mg/dL) (65-110) mg/dL Random Glucose (70-110) mg/dL Hemoglobin A1c 16.4 H (4.2-6.5) % Calcium (8.4-10.5) mg/dL Total Bilirubin (0.2-1.3) mg/dL AST (15-39) U/L ALT (7-56) U/L Alkaline Phosphatase (38-133) U/L Total Creatine Kinase (35-230) U/L CK-MB (CK-2) (0.0-3.6) ng/mL CK-MB (CK-2) % (2.5-3.0) % Total Protein (5.8-8.3) g/dL Albumin (3.0-4.8) g/dL Globulin gm/dL Albumin/Globulin Ratio (1.1-1.8) Procalcitonin 3.23 H (0.19-0.49) NG/ML HIV 1&2 Ag/Ab, 4th Gen Nonreactive (Nonreactive) Laboratory Results - last 24 hr 09/24/16 09/25/16 09/26/16 15:30 16:50 07:30 WBC RBC Hgb Hct MCV MCH MCHC RDW Plt Count pCO2 pO2 HCO3 ABG pH ABG Total CO2 ABG O2 Saturation ABG O2 Content ABG Base Excess ABG Hemoglobin ABG Carboxyhemoglobin POC ABG HHb (Measured) ABG Methemoglobin ABG O2 Capacity Hgb O2 Saturation FiO2 Sodium Potassium Chloride Carbon Dioxide Anion Gap BUN Creatinine Est GFR ( Amer) Est GFR (Non-Af Amer) POC Glucose (mg/dL) Random Glucose Hemoglobin A1c 16.4 H Calcium Total Bilirubin AST ALT Alkaline Phosphatase Total Creatine Kinase CK-MB (CK-2) CK-MB (CK-2) % Total Protein Albumin Globulin Albumin/Globulin Ratio Procalcitonin 3.23 H HIV 1&2 Ag/Ab, 4th Gen Nonreactive 09/26/16 09/26/16 09/26/16 09:53 10:45 11:59 WBC RBC Hgb Hct MCV MCH MCHC RDW Plt Count pCO2 37 pO2 126.0 H HCO3 18.2 L ABG pH 7.30 L ABG Total CO2 19.3 L ABG O2 Saturation 98.7 H ABG O2 Content 14.5 L ABG Base Excess -7.6 L ABG Hemoglobin 10.5 L ABG Carboxyhemoglobin 1.5 POC ABG HHb (Measured) 1.3 ABG Methemoglobin 0.9 ABG O2 Capacity 14.7 L Hgb O2 Saturation 96.3 FiO2 32.0 Sodium Potassium Chloride Carbon Dioxide Anion Gap BUN Creatinine Est GFR ( Amer) Est GFR (Non-Af Amer) POC Glucose (mg/dL) 496 H* > 500 H* Random Glucose Hemoglobin A1c Calcium Total Bilirubin AST ALT Alkaline Phosphatase Total Creatine Kinase CK-MB (CK-2) CK-MB (CK-2) % Total Protein Albumin Globulin Albumin/Globulin Ratio Procalcitonin HIV 1&2 Ag/Ab, 4th Gen 09/26/16 09/26/16 09/27/16 16:16 18:43 05:00 WBC 12.3 H RBC 4.01 Hgb 10.6 L Hct 33.5 L MCV 83.5 MCH 26.4 MCHC 31.6 RDW 16.4 H Plt Count 124 pCO2 pO2 HCO3 ABG pH ABG Total CO2 ABG O2 Saturation ABG O2 Content ABG Base Excess ABG Hemoglobin ABG Carboxyhemoglobin POC ABG HHb (Measured) ABG Methemoglobin ABG O2 Capacity Hgb O2 Saturation FiO2 Sodium 147 Potassium 3.2 L Chloride 115 H Carbon Dioxide 24 Anion Gap 11 BUN 69 H Creatinine 3.0 H Est GFR ( Amer) 19 Est GFR (Non-Af Amer) 16 POC Glucose (mg/dL) 429 H* 436 H* Random Glucose 402 H* D Hemoglobin A1c Calcium 8.1 L Total Bilirubin 0.7 AST 67 H ALT 20 Alkaline Phosphatase 88 Total Creatine Kinase 3958 H CK-MB (CK-2) 6.9 H CK-MB (CK-2) % 0.2 L Total Protein 5.9 Albumin 2.3 L Globulin 3.5 Albumin/Globulin Ratio 0.7 L Procalcitonin HIV 1&2 Ag/Ab, 4th Gen Fingerstick Blood Sugar Results: 384 Review of Systems - Constitutional Constitutional: absent: Fever, Chills - EENT Eyes: absent: Change in Vision Ears: absent: Dizziness - Cardiovascular Cardiovascular: absent: Chest Pain, Dyspnea - Respiratory Respiratory: absent: Dyspnea - Gastrointestinal Gastrointestinal: absent: Abdominal Pain, Nausea, Vomiting - Genitourinary Genitourinary: absent: Dysuria - Reproductive: Female Reproductive:Female: Post Menopausal - Menstruation Menstruation: Post Menopausal - Neurological Neurological: absent: Headaches Critical Care Progress Note - Ventilator Checklist PUD Prophalyxis: Yes DVT Prophylaxis: Yes - Nutrition Nutrition: Nutrition Category Date Time Status Consistent Carbohydrate [DIET] Diets 09/26/16 Breakfast Ordered Assessment/Plan - Assessment and Plan (Free Text) Assessment: 61 yo F w h/o CKD (unknown baseline), uncontrolled DM, HTN, chronic BL LE venous stasis ulcers, medical noncompliance admitted to ICU unresponsive in [facility] that has since resolved, sepsis 2/2 cellulitis due to LE ulcers, severe dehydration with hyperkalemia, hypernatremia, rhabdo, ORI, severe metabolic acidosis (pH 7.16 on ABG at admission), acute pancreatitis. Patient was initially intubated for airway protection, course was complicated by L lung collapse due to R mainstem intubation, now resolved. Patient was extubated 2 days ago, doing well on NC, clinically significantly improved, now on SQ insulin , tolerating PO diet. Plan: Neuro: AMS at admission likely 2/2 NK +/- sepsis. Currently AAOx3, following commands, answering ROS. Off Keppra, no signs of seizures. EEG done yesterday pending read. CV: HD stable. Continue to monitor Pulm: s/p extubation 2 days ago. Currently tolerating NC, no CO2 retention as per ABG yesterday. Continue to monitor resp status GI: Pancreatitis resolved. GI following. Abd US negative for acute pancreat Endo: A1C 16.4. AG closed. Off insulin gtt. Tolerating oral diet. Endocrinology following. Currently on Levemir 40units Q12hr. Will increase Lispro to High SSI. Continue IVF Renal: ORI improving. Cr 3.0 today (7.1 at admission). Hold nephrotoxins. Nephrology c/s appreciated. Continue IVF ID: Final wound cxs significant for MSSA and ESBL Klebsiella. ID following. Continue Zinezolid and Meropenem. Local wound care as per podiatry. Blood cultures negative at 48 hours. Final urine cultures negative. Heme: Mild normocytic anemia. No signs of bleeding. Continue top monitor. FEN: Hypokalemia 3.2 - replaced by primary team. Will obtain Mag and phos this AM as well. Pureed diet with nectar thick liquids DVT/GI ppx: SQH. IV protonix. Pureed diet with nectar thick liquids Dispo -- stable. Transfer to tele. PT. OT. IS. OOB to chair as tolerated. - Date & Time Date: 09/27/16 Time: 11:06 <Savage Yu - Last Filed: 09/27/16 12:44> CCU Objective - Vital Signs / Intake & Output Vital Signs (Last 4 hours): Vital Signs Pulse Resp BP 09/27/16 10:48 92 H 25 H 09/27/16 10:47 92 H 25 H 09/27/16 10:46 110 H 28 H 09/27/16 10:45 96 H 24 09/27/16 10:44 92 H 27 H 09/27/16 10:43 92 H 20 09/27/16 10:42 98 H 25 H 09/27/16 10:41 96 H 22 09/27/16 10:40 96 H 20 09/27/16 10:39 92 H 23 09/27/16 10:38 86 19 09/27/16 10:37 96 H 26 H 09/27/16 10:36 92 H 25 H 09/27/16 10:35 91 H 24 09/27/16 10:34 87 23 09/27/16 10:33 86 23 09/27/16 10:32 87 22 09/27/16 10:31 87 22 09/27/16 10:30 89 22 09/27/16 10:29 90 24 09/27/16 10:28 85 21 09/27/16 10:27 89 22 09/27/16 10:26 98 H 25 H 09/27/16 10:25 85 22 09/27/16 10:24 84 22 09/27/16 10:23 87 25 H 09/27/16 10:22 89 26 H 09/27/16 10:21 86 23 09/27/16 10:20 96 H 26 H 09/27/16 10:19 94 H 25 H 09/27/16 10:18 96 H 18 09/27/16 10:17 86 23 09/27/16 10:16 86 24 09/27/16 10:15 88 23 09/27/16 10:14 85 23 09/27/16 10:13 88 22 09/27/16 10:12 87 24 09/27/16 10:11 89 23 09/27/16 10:10 97 H 26 H 09/27/16 10:09 94 H 21 09/27/16 10:08 108 H 31 H 09/27/16 10:07 85 25 H 09/27/16 10:06 90 24 09/27/16 10:05 89 24 09/27/16 10:04 85 21 09/27/16 10:03 88 21 09/27/16 10:02 89 22 09/27/16 10:01 88 22 09/27/16 10:00 90/46 L 09/27/16 09:59 94 H 19 09/27/16 09:58 92 H 24 Intake and Output (Last 8hrs): Intake & Output 09/26/16 09/27/16 09/27/16 22:59 06:59 14:59 Intake Total 1650 1300 Output Total 2100 1200 Balance -450 100 Intake: IV 1400 1200 Right Antecubital 1400 1200 Oral 250 100 Output: Urine 2100 1200 Urethral ([place]) 2100 1200 Other: Voiding Method Indwelling Catheter Indwelling Catheter # Bowel Movements 0 - Medications Active Medications: Active Medications Generic Name Dose Route Start Last Admin Trade Name Freq PRN Reason Stop Dose Admin Acetaminophen 650 mg 09/26/16 16:59 Tylenol 325mg Tab PO Q6H PRN pain moderate and higher Heparin Sodium (Porcine) 5,000 units 09/25/16 14:00 09/26/16 21:11 Heparin SC 5,000 units Q8H EMETERIO Administration Protocol Sodium Chloride 1,000 mls @ 100 mls/hr 09/26/16 08:15 09/27/16 06:32 Sodium Chloride 0.45% IV 100 mls/hr .Q10H EMETERIO Administration Linezolid 300 mls @ 200 mls/hr 09/26/16 10:00 09/26/16 21:12 Zyvox 600mg/300ml D5w IVPB 10/01/16 10:01 200 mls/hr Q12 EMETERIO Administration Protocol Meropenem 500 mg/ Sodium 100 mls @ 100 mls/hr 09/27/16 10:00 Chloride IVPB 10/04/16 10:01 Q12 EMETERIO Protocol Insulin Detemir 40 unit 09/27/16 10:00 09/27/16 09:52 Levemir SC 40 unit Q12H EMETERIO Administration Insulin Human Lispro 0 units 09/27/16 12:00 09/27/16 12:18 Humalog High SC 12 units Q6 EMETERIO Administration Protocol Pantoprazole Sodium 40 mg 09/24/16 14:00 09/27/16 09:37 Protonix Inj IVP 40 mg DAILY EMETERIO Administration Silver Sulfadiazine 1 ea 09/26/16 17:15 09/27/16 12:25 Silvadene 1% 20 Gm TOP Not Given Q12H [facility] Vitamin A 1 ea 09/27/16 10:00 09/27/16 09:53 Vitamin A & D Oint Ud Foilpak TOP 1 ea BID EMETERIO Administration - Patient Studies Lab Studies: Microbiology Studies 09/24/16 20:45 Gram Stain - Final Leg - Right Wound Culture - Final Klebsiella Pneumoniae Ssp Pneu Staphylococcus Aureus Lab Studies 09/27/16 09/27/16 09/26/16 Range/Units 07:00 05:00 18:43 WBC 12.3 H (4.5-11.0) 10^3/ul RBC 4.01 (3.5-6.1) 10^6/uL Hgb 10.6 L (12.0-16.0) gm/dL Hct 33.5 L (36.0-48.0) % MCV 83.5 (80.0-105.0) fL MCH 26.4 (25.0-35.0) pg MCHC 31.6 (31.0-37.0) g/dl RDW 16.4 H (11.5-14.5) % Plt Count 124 (120.0-450.0) 10^3/uL Neutrophils % (Manual) 80 H (50.0-70.0) % Band Neutrophils % 8 H (0-2) % Lymphocytes % (Manual) 6 L (22.0-35.0) % Atypical Lymphs % 1 H (0.0-0.0) % Monocytes % (Manual) 4 (1.0-6.0) % Myelocytes % 1 % Nucleated RBC % 1 % Platelet Evaluation Sl dec (NORMAL) Hypochromasia 1+ Anisocytosis (manual) 1+ Microcytosis (manual) 1+ Tear Drop Cells Slight Ovalocytes Slight Sodium 147 (132-148) mmol/L Potassium 3.2 L (3.6-5.0) mmol/L Chloride 115 H (98-107) mmol/L Carbon Dioxide 24 (21-33) mmol/L Anion Gap 11 (10-20) BUN 69 H (7-21) mg/dL Creatinine 3.0 H (0.5-1.4) mg/dL Est GFR ( Amer) 19 Est GFR (Non-Af Amer) 16 POC Glucose (mg/dL) 436 H* (65-110) mg/dL Random Glucose 402 H* D (70-110) mg/dL Hemoglobin A1c (4.2-6.5) % Calcium 8.1 L (8.4-10.5) mg/dL Phosphorus 2.7 (2.5-4.5) mg/dL Magnesium 2.1 (1.7-2.2) mg/dL Total Bilirubin 0.7 (0.2-1.3) mg/dL AST 67 H (15-39) U/L ALT 20 (7-56) U/L Alkaline Phosphatase 88 (38-133) U/L Total Creatine Kinase 3958 H (35-230) U/L CK-MB (CK-2) 6.9 H (0.0-3.6) ng/mL CK-MB (CK-2) % 0.2 L (2.5-3.0) % Total Protein 5.9 (5.8-8.3) g/dL Albumin 2.3 L (3.0-4.8) g/dL Globulin 3.5 gm/dL Albumin/Globulin Ratio 0.7 L (1.1-1.8) Procalcitonin (0.19-0.49) NG/ML HIV 1&2 Ag/Ab, 4th Gen (Nonreactive) 09/26/16 09/26/16 09/26/16 Range/Units 16:16 11:59 09:53 WBC (4.5-11.0) 10^3/ul RBC (3.5-6.1) 10^6/uL Hgb (12.0-16.0) gm/dL Hct (36.0-48.0) % MCV (80.0-105.0) fL MCH (25.0-35.0) pg MCHC (31.0-37.0) g/dl RDW (11.5-14.5) % Plt Count (120.0-450.0) 10^3/uL Neutrophils % (Manual) (50.0-70.0) % Band Neutrophils % (0-2) % Lymphocytes % (Manual) (22.0-35.0) % Atypical Lymphs % (0.0-0.0) % Monocytes % (Manual) (1.0-6.0) % Myelocytes % % Nucleated RBC % % Platelet Evaluation (NORMAL) Hypochromasia Anisocytosis (manual) Microcytosis (manual) Tear Drop Cells Ovalocytes Sodium (132-148) mmol/L Potassium (3.6-5.0) mmol/L Chloride (98-107) mmol/L Carbon Dioxide (21-33) mmol/L Anion Gap (10-20) BUN (7-21) mg/dL Creatinine (0.5-1.4) mg/dL Est GFR ( Amer) Est GFR (Non-Af Amer) POC Glucose (mg/dL) 429 H* > 500 H* 496 H* (65-110) mg/dL Random Glucose (70-110) mg/dL Hemoglobin A1c (4.2-6.5) % Calcium (8.4-10.5) mg/dL Phosphorus (2.5-4.5) mg/dL Magnesium (1.7-2.2) mg/dL Total Bilirubin (0.2-1.3) mg/dL AST (15-39) U/L ALT (7-56) U/L Alkaline Phosphatase (38-133) U/L Total Creatine Kinase (35-230) U/L CK-MB (CK-2) (0.0-3.6) ng/mL CK-MB (CK-2) % (2.5-3.0) % Total Protein (5.8-8.3) g/dL Albumin (3.0-4.8) g/dL Globulin gm/dL Albumin/Globulin Ratio (1.1-1.8) Procalcitonin (0.19-0.49) NG/ML HIV 1&2 Ag/Ab, 4th Gen (Nonreactive) 09/26/16 09/25/16 09/24/16 Range/Units 07:30 16:50 15:30 WBC (4.5-11.0) 10^3/ul RBC (3.5-6.1) 10^6/uL Hgb (12.0-16.0) gm/dL Hct (36.0-48.0) % MCV (80.0-105.0) fL MCH (25.0-35.0) pg MCHC (31.0-37.0) g/dl RDW (11.5-14.5) % Plt Count (120.0-450.0) 10^3/uL Neutrophils % (Manual) (50.0-70.0) % Band Neutrophils % (0-2) % Lymphocytes % (Manual) (22.0-35.0) % Atypical Lymphs % (0.0-0.0) % Monocytes % (Manual) (1.0-6.0) % Myelocytes % % Nucleated RBC % % Platelet Evaluation (NORMAL) Hypochromasia Anisocytosis (manual) Microcytosis (manual) Tear Drop Cells Ovalocytes Sodium (132-148) mmol/L Potassium (3.6-5.0) mmol/L Chloride (98-107) mmol/L Carbon Dioxide (21-33) mmol/L Anion Gap (10-20) BUN (7-21) mg/dL Creatinine (0.5-1.4) mg/dL Est GFR ( Amer) Est GFR (Non-Af Amer) POC Glucose (mg/dL) (65-110) mg/dL Random Glucose (70-110) mg/dL Hemoglobin A1c 16.4 H (4.2-6.5) % Calcium (8.4-10.5) mg/dL Phosphorus (2.5-4.5) mg/dL Magnesium (1.7-2.2) mg/dL Total Bilirubin (0.2-1.3) mg/dL AST (15-39) U/L ALT (7-56) U/L Alkaline Phosphatase (38-133) U/L Total Creatine Kinase (35-230) U/L CK-MB (CK-2) (0.0-3.6) ng/mL CK-MB (CK-2) % (2.5-3.0) % Total Protein (5.8-8.3) g/dL Albumin (3.0-4.8) g/dL Globulin gm/dL Albumin/Globulin Ratio (1.1-1.8) Procalcitonin 3.23 H (0.19-0.49) NG/ML HIV 1&2 Ag/Ab, 4th Gen Nonreactive (Nonreactive) Laboratory Results - last 24 hr 09/24/16 09/25/16 09/26/16 15:30 16:50 07:30 WBC RBC Hgb Hct MCV MCH MCHC RDW Plt Count Neutrophils % (Manual) Band Neutrophils % Lymphocytes % (Manual) Atypical Lymphs % Monocytes % (Manual) Myelocytes % Nucleated RBC % Platelet Evaluation Hypochromasia Anisocytosis (manual) Microcytosis (manual) Tear Drop Cells Ovalocytes Sodium Potassium Chloride Carbon Dioxide Anion Gap BUN Creatinine Est GFR ( Amer) Est GFR (Non-Af Amer) POC Glucose (mg/dL) Random Glucose Hemoglobin A1c 16.4 H Calcium Phosphorus Magnesium Total Bilirubin AST ALT Alkaline Phosphatase Total Creatine Kinase CK-MB (CK-2) CK-MB (CK-2) % Total Protein Albumin Globulin Albumin/Globulin Ratio Procalcitonin 3.23 H HIV 1&2 Ag/Ab, 4th Gen Nonreactive 09/26/16 09/26/16 09/26/16 09:53 11:59 16:16 WBC RBC Hgb Hct MCV MCH MCHC RDW Plt Count Neutrophils % (Manual) Band Neutrophils % Lymphocytes % (Manual) Atypical Lymphs % Monocytes % (Manual) Myelocytes % Nucleated RBC % Platelet Evaluation Hypochromasia Anisocytosis (manual) Microcytosis (manual) Tear Drop Cells Ovalocytes Sodium Potassium Chloride Carbon Dioxide Anion Gap BUN Creatinine Est GFR ( Amer) Est GFR (Non-Af Amer) POC Glucose (mg/dL) 496 H* > 500 H* 429 H* Random Glucose Hemoglobin A1c Calcium Phosphorus Magnesium Total Bilirubin AST ALT Alkaline Phosphatase Total Creatine Kinase CK-MB (CK-2) CK-MB (CK-2) % Total Protein Albumin Globulin Albumin/Globulin Ratio Procalcitonin HIV 1&2 Ag/Ab, 4th Gen 09/26/16 09/27/16 09/27/16 18:43 05:00 07:00 WBC 12.3 H RBC 4.01 Hgb 10.6 L Hct 33.5 L MCV 83.5 MCH 26.4 MCHC 31.6 RDW 16.4 H Plt Count 124 Neutrophils % (Manual) 80 H Band Neutrophils % 8 H Lymphocytes % (Manual) 6 L Atypical Lymphs % 1 H Monocytes % (Manual) 4 Myelocytes % 1 Nucleated RBC % 1 Platelet Evaluation Sl dec Hypochromasia 1+ Anisocytosis (manual) 1+ Microcytosis (manual) 1+ Tear Drop Cells Slight Ovalocytes Slight Sodium 147 Potassium 3.2 L Chloride 115 H Carbon Dioxide 24 Anion Gap 11 BUN 69 H Creatinine 3.0 H Est GFR ( Amer) 19 Est GFR (Non-Af Amer) 16 POC Glucose (mg/dL) 436 H* Random Glucose 402 H* D Hemoglobin A1c Calcium 8.1 L Phosphorus 2.7 Magnesium 2.1 Total Bilirubin 0.7 AST 67 H ALT 20 Alkaline Phosphatase 88 Total Creatine Kinase 3958 H CK-MB (CK-2) 6.9 H CK-MB (CK-2) % 0.2 L Total Protein 5.9 Albumin 2.3 L Globulin 3.5 Albumin/Globulin Ratio 0.7 L Procalcitonin HIV 1&2 Ag/Ab, 4th Gen Critical Care Progress Note - Nutrition Nutrition: Nutrition Category Date Time Status Consistent Carbohydrate [DIET] Diets 09/26/16 Breakfast Ordered Attending/Attestation - Attestation I have personally seen and examined this patient.: Yes I have fully participated in the care of the patient.: Yes I have reviewed all pertinent clinical information: Yes Notes (Text): 09/27/16 12:42 The patient was seen and examined at the bedside. Patient care was discussed with resident Medical records, lab studies, and imaging were reviewed and management issues were discussed and formulated. Last 24H events reviewed. Agree with above treatment plans as outlined in 's note with addition of the following: -Pt clinically much improved. Pt remains hemodynamically stable and is comfortable on NC in NAD. No events overnight -PT\OT eval for OOB -consider social worker palliative care eval as pt needs help at home with her medications CCM f\u 25min
[2016-09-27 11:07] LABS: MAGNESIUM 2.1 mg/dL (1.7-2.2); PHOSPHOROUS 2.7 mg/dL (2.5-4.5)
[2016-09-27 11:28] LABS: BAND 8 % (0-2); NEUTROPHIL 80 % (50.0-70.0)
[2016-09-27 11:29] LABS: ANISOCYTOSIS 1+; ATYPICAL LYMPHOCYTE 1 % (0.0-0.0); HYPOCHROMIA 1+; MICROCYTOSIS 1+; MYELOCYTE 1 %; PLATELET ESTIMATE SL DEC (NORMAL)
[2016-09-27 11:30] LABS: NUCLEATED RED BLOOD CELL 1 %; OVALOCYTES SLIGHT; TEAR DROP CELLS SLIGHT
--- NOTE | 2016-09-27 11:42 | CARD ---
APPROVED REPORT EXAM: Two-dimensional and M-mode echocardiogram with Doppler and color Doppler. Other Information Quality : FairRhythm : INDICATION AMS, R/O CARDIOGENIC CAUSE, R/O ENDOCARDITIS 2D DIMENSIONS Left Atrium (2D)3.9 (1.6-4.0cm)IVSd1.2 (0.7-1.1cm) LVDd3.9 (3.9-5.9cm)PWd1.2 (0.7-1.1cm) LVDs2.5 (2.5-4.0cm)FS (%) 35.1 % LVEF (%)65.0 (>50%) M-Mode DIMENSIONS Aortic Root3.30 (2.2-3.7cm)Aortic Cusp Exc.1.60 (1.5-2.0cm) Aortic Valve AoV Peak Hjztljwt084.0cm/sAoV VTI31.4cmLVOT Peak Eecpjhqr102.0cm/s LVOT VTI28.20cm Mitral Valve MV E Derkkray72.6cm/sMV A Uwucachw35.9cm/sE/A ratio0.7 TDI Lateral E' Peak V7.60cm/sMedial E' Peak V6.04cm/sE/Lateral E'9.0 E/Medial E'11.4 Pulmonary Valve PV Peak Gveydyrn509.0cm/sPV Peak Grad.6mmHg Tricuspid Valve TR Peak Aflceemu397ih/sRAP [id number] Peak Gr.15mmHg NWAR49rrRa LEFT VENTRICLE The left ventricle is normal size. There is normal left ventricular wall thickness. The left ventricular function is normal. The left ventricular ejection fraction is within the normal range. There is normal LV segmental wall motion. RIGHT VENTRICLE The right ventricle is normal size. ATRIA The left atrium size is normal. The right atrium size is normal. The interatrial septum is intact with no evidence for an atrial septal defect. AORTIC VALVE The aortic valve is moderately calcified. Cannot exclude aortic valvular vegetation. MITRAL VALVE The mitral valve is moderately thickened. Mitral annular calcification is moderate. Mitral regurgitation is trace. TRICUSPID VALVE The tricuspid valve is normal in structure. There is trace tricuspid regurgitation. PULMONIC VALVE The pulmonic valve is not well visualized. GREAT VESSELS The aortic root is normal in size. PERICARDIAL EFFUSION There is no pericardial effusion. <Conclusion> The left ventricle is normal size. There is normal left ventricular wall thickness. The left ventricular function is normal. The aortic valve is moderately calcified. Aortic sclerosis. Cannot exclude aortic valvular vegetation. Mitral annular calcification is moderate. Mitral regurgitation is trace. There is trace tricuspid regurgitation.
[2016-09-27] MEDS ORDERED: Insulin Lispro (HUMAlog) HIGH Coverage SC SCH (12:00)
[2016-09-27] MEDS: Meropenem 500 MG in Sodium Chloride 0.9% 100 ML IVPB SCH ×2 (13:41→21:31)
[2016-09-27] MEDS: Linezolid 600 mg in D5W 300 ml 300 ML IVPB SCH (14:11)
--- NOTE | 2016-09-27 15:21 | PN ---
DATE: 09/27/2016 ROOM: 260 This is a 61-year-old female with recent uncontrolled type 2 insulin-requiring diabetes presenting he re with hyperosmolar hyperglycemic state and dehydration with mild ketosis and received intensive ins ulin therapy with an insulin drip infusion and also vigorous IV hydration as given. Her glycemic lev els are fluctuating as noted and the latest glucose values have ranged from 402 to 429 and 436 mg/dL. Her latest chemistries include a BUN of 69, sodium 147, potassium 3.2, chloride 115, CO2 24, glucos e 402, and creatinine 3.0. Her total creatine kinase is 3958. So at this time, we will initiate a c ombination of a basal and premixed insulin regimen as ordered. Because of her lack of medical insura nce at this time, we cannot give her the very expensive insulin analogs which are actually more predi ctable and more accurate in terms of efficacy and administration. We will start her on Humulin NPH g iven as 20 units subQ at bedtime daily to start tonight. We will also add Humulin 70/30 given as 40 units a.c. breakfast and 30 units a.c. dinner to start tonight. We will modify the coverage scale to a low dose algorithm using regular insulin as given. We will obtain serial chemistries and suppleme nt accordingly as needed. We will also continue the vigorous IV hydration to replenish the last flui ds and electrolytes. She will also need diabetic education for insulin self-administration technique s as noted. We will follow and advise accordingly. Michelle Kent MD cc: [id number] TT: 09/27/2016 15:21:09 Confirmation # [id number] Dictation # [id number] tn
--- NOTE | 2016-09-27 15:26 | CP.PCM.PN ---
Subjective - Date & Time of Evaluation Date of Evaluation: 09/27/16 Time of Evaluation: 09:20 - Subjective Subjective: Patient is comfortable in bed, less lethargic, more awake, no fevers, less pain in the right leg. Objective - Vital Signs/Intake and Output Vital Signs (last 24 hours): Temp Pulse Resp BP Pulse Ox 97.8 F 92 H 25 H 90/46 L 100 09/27/16 04:00 09/27/16 10:48 09/27/16 10:48 09/27/16 10:00 09/27/16 02:00 Intake and Output: 09/27/16 09/27/16 06:59 18:59 Intake Total 1300 Output Total 1200 Balance 100 - Medications Medications: Current Medications Acetaminophen (Tylenol 325mg Tab) 650 mg PO Q6H PRN PRN Reason: pain moderate and higher Heparin Sodium (Porcine) (Heparin) 5,000 units SC Q8H [facility]ET[facility] PRN Reason: Protocol Last Admin: 09/27/16 14:16 Dose: 5,000 units Sodium Chloride (Sodium Chloride 0.45%) 1,000 mls @ 100 mls/hr IV .Q10H [facility]ET[facility] Last Admin: 09/27/16 14:17 Dose: 100 mls/hr Meropenem 500 mg/ Sodium (Chloride) 100 mls @ 100 mls/hr IVPB Q12 [facility] PRN Reason: Protocol Stop: 10/04/16 10:01 Last Admin: 09/27/16 13:41 Dose: 100 mls/hr Insulin Human NPH (Humulin N) 20 units SC HS [facility] Insulin Human Regular (Humulin R Low) 0 units SC ACHS [facility]IO PRN Reason: Protocol Pantoprazole Sodium (Protonix Inj) 40 mg IVP DAILY [facility] Last Admin: 09/27/16 09:37 Dose: 40 mg Silver Sulfadiazine (Silvadene 1% 20 Gm) 1 ea TOP Q12H [facility] Last Admin: 09/27/16 12:25 Dose: Not Given Vitamin A (Vitamin A & D Oint Ud Foilpak) 1 ea TOP BID [facility] Last Admin: 09/27/16 09:53 Dose: 1 ea - Labs Labs: 09/27/16 05:00 09/27/16 05:00 PT 12.2 Seconds (9.9-11.8) H 09/24/16 13:10 INR 1.13 (0.93-1.08) H 09/24/16 13:10 APTT 22.2 Seconds (23.7-30.8) L 09/24/16 13:10 - Constitutional Appears: Non-toxic, No Acute Distress - Head Exam Head Exam: NORMAL INSPECTION - ENT Exam ENT Exam: Mucous Membranes Moist - Neck Exam Neck Exam: absent: Lymphadenopathy, Meningismus - Respiratory Exam Respiratory Exam: Decreased Breath Sounds - Cardiovascular Exam Cardiovascular Exam: +S1, +S2 - GI/Abdominal Exam GI & Abdominal Exam: Soft. absent: Tenderness - Extremities Exam Additional comments: right leg with dry dressings in place. Assessment and Plan - Assessment and Plan (Free Text) Plan: Assessment Systemic Inflammatory Response Syndrome with acute encephalopathy (probably toxic-metabolic) S/P ventilator-dependent respiratory failure, probably related to diabetic ketoacidosis, consider severe sepsis from right leg wound with ESBL- producing multidrug resistant Klebsiella and methicillin-sensitive Staph aureus acute on chronic renal failure, slowly improving history of adrenal cancer lower extremity venous stasis obesity with BMI 39 DM HTN Plan Changed antibiotics to Meropenem and will monitor patient's clinical response HIV test is non-reactive ultrasound of legs does not show DVT Will continue to follow clinically Overall prognosis is poor
[2016-09-27] MEDS: Insulin Reg-LOW-Coverage SC SCH ×2 (17:30→22:24)
[2016-09-27] MEDS: Insulin Human NPH/Reg 70/30 Vial(3 ml) SC SCH (17:31)
[2016-09-27] MEDS: Insulin Human NPH 1 UNITS/0.01 ML SC SCH (21:28)
--- NOTE | 2016-09-28 04:48 | PN ---
DATE: 09/27/2016 SUBJECTIVE: The patient is more comfortable, alert, oriented. Tolerating the diet. PHYSICAL EXAMINATION: VITAL SIGNS: Stable. HEENT: Atraumatic, anicteric. NECK: Supple. HEART: S1, S2 heard. LUNGS: Bilateral air entry present. ABDOMEN: Soft. There is no mass palpable. No tenderness. EXTREMITIES: No cyanosis, no clubbing. LABORATORY DATA: Hemoglobin 10.6, hematocrit 33.5, WBC 12.3, platelets 124. BUN 69 and creatinine 3.0. LFTs reviewed showed albumin of 2.3. IMPRESSION: This 61-year-old patient was admitted with hyperosmolar nonketotic diabetic coma, now improving clinically, on empiric antibiotic therapy. The patient did have an elevated lipase level before and now show significant improvement. CT scan showed pancreatic contour was normal. RECOMMENDATIONS: Continue the present management of antibiotics and control of blood as glucose part of this. The CT is reviewed again showed a normal pancreatic contour and ultrasound showed gallstones, but her EBD is normal, most likely the cause is mildly elevated lipase level, is nonspecific. Would recommend to continue the present managment. We will continue to closely follow up her care and suggest further recommendation based on the clinical course. Toño Morrell MD cc: [id number] TT: 09/28/2016 04:47:45 Confirmation # [id number] Dictation # [id number] MTDD
[2016-09-28] MEDS: Sodium Chloride 0.45% 1,000 ML IV SCH ×4 (04:54→22:41)
[2016-09-28] MEDS: Silver Sulfadiazine 1% Cream (20 gm) TOP SCH ×2 (05:07→18:25)
--- NOTE | 2016-09-28 07:37 | CON ---
DATE: 09/26/2016 This 61-year-old patient with a past medical history of diabetes mellitus, hypertension, and bilateral venous stasis was brought to the Emergency Room after being found at home unresponsive. The patient was found to have elevated blood glucose of 1399. The patient was found to be hyperosmolar nonketotic diabetic coma. The patient has been treated with fluid hydration. The patient was also placed on empiric antibiotic therapy. During initial hospitalization, the ER visit, the patient did have a lipase level sent. It was reading at 1654. GI consult was requested because of this very elevated lipase level. The patient subsequently also had an ultrasound scan of the abdomen done which showed small gallstones. CBD was normal. Since admission the patient has been improving gradually. The patient is more alert. . Other past medical history as above. FAMILY HISTORY: Noncontributory. SOCIAL HISTORY: No alcohol. No smoking reviewed. ALLERGIES: No known drug allergy. REVIEW OF THE SYSTEMS: Positive as above. Other systems reviewed negative. PHYSICAL EXAM: On examination, the patient is lying on the bed, not in acute distress. Vital signs: Heart rate 98, blood pressure is 132/73, respiration is18, O2 saturation 100% on room air. HEENT: Atraumatic, anicteric. NECK: Supple. HEART: S1, S2 heard. LUNGS: Bilateral air entry present. ABDOMEN: Soft. There is no mass palpable. No tenderness. EXTREMITIES: No cyanosis, no clubbing. LABORATORY DATA: BUN is 59, creatinine 4.8, came down from 5.5. Glucose also has come down from 660. CT and sonogram was reviewed. IMPRESSION: This 61-year-old patient admitted with diabetes mellitus and hyperosmolar nonketotic coma initially was intubated for the airway protection. Now the patient is more alert, oriented. The patient initially had an elevated lipase level, and CT showed normal pancreatic contrast. Repeat lipase level has come down to 458. The likely cause for elevated lipases could be due to low perfusion. At the present time, there is no clinical evidence of active pancreatitis. RECOMMENDATION: Would recommend patient to continue the present management. The patient can be started on the liquids, and advance the diet, depending upon the other clinical parameters. Followup of the LFTs. Will continue the present management. Thank you very much for allowing us to participate in the care of the patient. Toño Morrell MD cc: [id number] TT: 09/27/2016 16:41:22 Confirmation # [id number] Dictation # [id number] jn MTDD
[2016-09-28] MEDS: Insulin Reg-LOW-Coverage SC SCH ×4 (08:09→23:00)
[2016-09-28] MEDS: Insulin Human NPH/Reg 70/30 Vial(3 ml) SC SCH ×2 (08:49→17:27)
--- NOTE | 2016-09-28 09:46 | PN ---
DATE: 09/28/2016 This is a 61-year-old female seen for bilateral leg ulcers. The patient is seen at bedside. She sta orin she feels a little better, but does not want to get out of bed. PAST MEDICAL HISTORY: Positive for diabetes. She has a history of nonketotic diabetic coma, pancrea titis, renal failure, rhabdomyolysis and sepsis and venous stasis ulcers. She says that they were be ing cared for by nurses at home. The patient's dressings are clean, dry and intact and she is seen in offloading boots at bedside. VITAL SIGNS: Her temperature is 97.1, the pulse is 110 and the blood pressure is 115/73 and the resp irations are 20. MEDICATIONS: Noted on the SEP and she is on meropenem as per infectious disease. LABORATORIES: Also reviewed. She has got a 12.3 white blood cell count, the H and H is 10.6 and 33. 5 and the platelets are 124, neutrophils are 80 and lymphocytes are 6 with a shift to the left. The patient's chemistry also was reviewed. Her potassium is 3.2, chloride is at 115, BUN and creatinine are 60 and 3.0. Random glucose yesterday was 402, today it is at 164. TCK was 3958, CK-MB was 6.9 a nd the CK-MB 2% was 0.2. Total protein is at 5.9 and her albumin is 2.3, low. The patient's microbi ology was reviewed. She has Klebsiella and Staph aureus. As noted, she is on antibiotics as per the infectious disease. She did have extremity Doppler done on 09/26 and it was negative for sonographic DVT. PHYSICAL EXAMINATION: EXTREMITIES: The patient's lower extremities were examined today. She has +3 chronic edema bilatera l. There is evidence of lichenification of the skin and brawny discoloration to both lower extremiti es. The right lower extremity has a large ulceration on the anterior tobin measuring approximately 7 cm x 11 cm by 0.2 cm. It is a full thickness ulceration. There is no sinus tract to bone. The drai nage is much better than when she was seen on Monday. There is no malodor at this time. No fluctuan ce and the calor has improved since Monday. The left lower extremity has a very small ulceration on the anterior tobin and this ulceration is going on to heal. ASSESSMENT: A diabetic with bilateral stasis ulcerations. PLAN OF TREATMENT: We will continue antibiotics as per infectious disease. We are going to continue local wound care using Xeroform, dry sterile dressing and REILLY bandages on the right and just a nonst ick with a dry sterile dressing and REILLY bandages on the left. She will be sent for arterial Doppler studies and leg x-rays now that she is out of ICU. The patient's wounds were dressed and we will fol low. Maura Hill DPM cc: [phone] TT: 09/28/2016 09:46:07 Confirmation # [id number] Dictation # [id number]
[2016-09-28 10:19] LABS: HEMATOCRIT 33.3 % (36.0-48.0); MEAN CELL VOLUME 84.7 fL (80.0-105.0); MEAN CORPUSCULAR HGB CONC 31.8 g/dl (31.0-37.0); PLATELET COUNT 112 10^3/uL (120.0-450.0); RED CELL DISTRIBUTION WIDTH 16.5 % (11.5-14.5); WHITE BLOOD COUNT 13.2 10^3/ul (4.5-11.0)
[2016-09-28 10:21] LABS: ADD MANUAL DIFF? YES
[2016-09-28 10:28] LABS: ALB/GLOB RATIO 0.6 (1.1-1.8); BILIRUBIN,TOTAL 0.7 mg/dL (0.2-1.3); CALCIUM 8.3 mg/dL (8.4-10.5); TOTAL PROTEIN 6.2 g/dL (5.8-8.3)
[2016-09-28 10:41] LABS: POTASSIUM 2.9 mmol/L (3.6-5.0)
[2016-09-28 11:02] LABS: BASOPHIL 1 % (0.0-1.0); LARGE PLATELETS PRESENT; NEUTROPHIL 87 % (50.0-70.0)
[2016-09-28] MEDS ORDERED: Potassium Chloride 20 mEq ER Tab PO ONE ×2 (11:25→18:46)
--- NOTE | 2016-09-28 11:27 | CP.PCM.PN ---
<Ruthy Sterling - Last Filed: 09/28/16 15:29> Subjective - Date & Time of Evaluation Date of Evaluation: 09/28/16 Time of Evaluation: 07:00 - Subjective Subjective: Patient seen and examined at bedside. No acute events overnight. Patient refused morning medication and blood draw. Patient complains of being hungry. Patient was unfriendly towards staff. Patient does not take insulin at home. Denies of having headache, weakness, fever, chills, shortness of breath, chest pain, abdominal pain, nausea, or vomiting. Objective - Vital Signs/Intake and Output Vital Signs (last 24 hours): Temp Pulse Resp BP Pulse Ox 97.1 F L 110 H 20 115/73 100 09/28/16 06:04 09/28/16 06:04 09/28/16 06:04 09/28/16 06:04 09/27/16 02:00 Intake and Output: 09/28/16 09/28/16 06:59 18:59 Intake Total 1580 Output Total 1950 Balance -370 - Medications Medications: Current Medications Acetaminophen (Tylenol 325mg Tab) 650 mg PO Q6H PRN PRN Reason: pain moderate and higher Heparin Sodium (Porcine) (Heparin) 5,000 units SC Q8H EMETERIO PRN Reason: Protocol Last Admin: 09/28/16 05:08 Dose: Not Given Sodium Chloride (Sodium Chloride 0.45%) 1,000 mls @ 100 mls/hr IV .Q10H EMETERIO Last Admin: 09/28/16 05:07 Dose: Not Given Meropenem 500 mg/ Sodium (Chloride) 100 mls @ 100 mls/hr IVPB Q12 EMETERIO PRN Reason: Protocol Stop: 10/04/16 10:01 Last Admin: 09/27/16 21:31 Dose: 100 mls/hr Insulin Human NPH (Humulin N) 20 units SC HS EMETERIO Last Admin: 09/27/16 21:28 Dose: 20 units Insulin Human Regular (Humulin R Low) 0 units SC ACHS EMETERIO PRN Reason: Protocol Last Admin: 09/28/16 08:09 Dose: Not Given Multivitamins/Minerals (Therapeutic-M Tab) 1 tab PO DAILY [facility] Pantoprazole Sodium (Protonix Inj) 40 mg IVP DAILY [facility] Last Admin: 09/27/16 09:37 Dose: 40 mg Potassium Chloride (K-Dur 20 Meq Er Tab) 40 meq PO ONCE ONE Stop: 09/28/16 11:26 Silver Sulfadiazine (Silvadene 1% 20 Gm) 1 ea TOP Q12H [facility] Last Admin: 09/28/16 05:07 Dose: Not Given Vitamin A (Vitamin A & D Oint Ud Foilpak) 1 ea TOP BID [facility] Last Admin: 09/27/16 17:32 Dose: 1 ea - Labs Labs: 09/28/16 10:05 09/28/16 10:05 PT 12.2 Seconds (9.9-11.8) H 09/24/16 13:10 INR 1.13 (0.93-1.08) H 09/24/16 13:10 APTT 22.2 Seconds (23.7-30.8) L 09/24/16 13:10 - Constitutional Appears: Non-toxic, No Acute Distress, Chronically Ill - Head Exam Head Exam: ATRAUMATIC, NORMOCEPHALIC - Eye Exam Eye Exam: Normal appearance, PERRL Pupil Exam: PERRL - ENT Exam ENT Exam: Mucous Membranes Moist - Neck Exam Neck Exam: Normal Inspection - Respiratory Exam Respiratory Exam: Clear to Ausculation Bilateral, NORMAL BREATHING PATTERN. absent: Wheezes, Respiratory Distress - Cardiovascular Exam Cardiovascular Exam: REGULAR RHYTHM, +S1, +S2. absent: RRR, Murmur - GI/Abdominal Exam GI & Abdominal Exam: Soft, Normal Bowel Sounds. absent: Tenderness - Exam Additional comments: Morel insert, krishna urine appreciated - Extremities Exam Additional comments: Bilateral tobin wound dressing clean, dry, intact. No drainage appreciated. - Back Exam Back Exam: NORMAL INSPECTION - Neurological Exam Neurological Exam: Alert, Awake, Oriented x3 - Psychiatric Exam Psychiatric exam: Normal Affect, Normal Mood - Skin Skin Exam: Dry, Warm Additional comments: Left lateral thigh purple discoloration 5'' x 3" in size, no open lesion, no drainage appreciated. No tenderness. Optifoam dressing applied. Assessment and Plan - Assessment and Plan (Free Text) Assessment: 61 year old female with past medical history of diabetes, CKD ( not on HD), hypertension, and LE venous stasis ulcersadmitted to ICU for HONK and sepsis likely secondary to b/l lower extremity ulcerations. HONK resolved, uncontrolled diabetes - Glycemic control improved 210 today - Follow endocrinology recommendations - Humulin NPH 20units HS - Humulin 70/30 40units ac breakfast, 30units ac dinner - Regular insulin low dose algorithm - Hgb A1c 16.4 - Insulin education by RN Sepsis - Afebrile, WBC 13.2 - likely secondary to b/l le ulcerations - Right leg culture grew klebsiella Pneumoniae and Staphylococcus Aureus - No growth on Blood and urine cultures - Continue antibiotics meropenem - Follow ID's recommendations - Follow up MRI LE for possible osteomyelitis and left thigh hematoma - wound care per podiatry - Silvadene, vitamin A&D - Bilateral lower extremity duplex no evidence of DVT - Follow up LE arterial doppler and LE x-ray - ESR 59 Hypokalemia - Potassium 2.9 - KCl IV given - Repeat BMP in the afternoon Hypernatremia - Follow nephrology recommendations - IVF NS - 149 today, continue to monitor - change to 1/2 NS once CPK improved ORI 2/2 Rhabdomyolysis - Follow nephrology recommendations - IVF NS @100ml/hr - Down trending CPK: 4348 on admission, 2481 today - lactic acid, downtrending - morel in place, output 1950cc Elevated lipase - Lipase today 5588 - Follow GI and nephrology recommendations - CT abdomen showed no signs of pancreatits - Likely due to hypoperfusion 2/2 sepsis - Follow up amylase and Lipase - Continue IVF r/o Seizure -Neurology recommended discontinued keppra -EEG report pending Prophylactic measures -Protonix IV for GI ppx -Heparin 5000 units SC Q8 for DVT ppx -Passed swallow eval -PT OT eval <Greg Montiel - Last Filed: 09/28/16 16:01> Objective - Vital Signs/Intake and Output Vital Signs (last 24 hours): Temp Pulse Resp BP Pulse Ox 98.7 F 91 H 18 97/59 L 100 09/28/16 12:00 09/28/16 12:00 09/28/16 12:00 09/28/16 12:00 09/27/16 02:00 Intake and Output: 09/28/16 09/28/16 06:59 18:59 Intake Total 1580 Output Total 1950 Balance -370 - Medications Medications: Current Medications Acetaminophen (Tylenol 325mg Tab) 650 mg PO Q6H PRN PRN Reason: pain moderate and higher Heparin Sodium (Porcine) (Heparin) 5,000 units SC Q8H EMETERIO PRN Reason: Protocol Last Admin: 09/28/16 14:33 Dose: 5,000 units Sodium Chloride (Sodium Chloride 0.45%) 1,000 mls @ 100 mls/hr IV .Q10H [facility] Last Admin: 09/28/16 12:05 Dose: 100 mls/hr Meropenem 500 mg/ Sodium (Chloride) 100 mls @ 100 mls/hr IVPB Q12 [facility] PRN Reason: Protocol Stop: 10/04/16 10:01 Last Admin: 09/28/16 12:05 Dose: 100 mls/hr Potassium Chloride (Potassium Chloride 20 Meq/100 Ml) 100 mls @ 50 mls/hr IVPB Q2H [facility]ET[facility]IO Stop: 09/28/16 15:59 Last Admin: 09/28/16 14:33 Dose: 50 mls/hr Insulin Human NPH (Humulin N) 20 units SC HS [facility]ET[facility] Last Admin: 09/27/16 21:28 Dose: 20 units Insulin Human Regular (Humulin R Low) 0 units SC ACHS EMETERIO PRN Reason: Protocol Last Admin: 09/28/16 14:45 Dose: Not Given Multivitamins/Minerals (Therapeutic-M Tab) 1 tab PO DAILY [facility] Last Admin: 09/28/16 12:07 Dose: 1 tab Pantoprazole Sodium (Protonix Inj) 40 mg IVP DAILY [facility] Last Admin: 09/28/16 12:05 Dose: 40 mg Silver Sulfadiazine (Silvadene 1% 20 Gm) 1 ea TOP Q12H [facility] Last Admin: 09/28/16 05:07 Dose: Not Given Vitamin A (Vitamin A & D Oint Ud Foilpak) 1 ea TOP BID [facility] Last Admin: 09/28/16 12:07 Dose: 1 ea - Labs Labs: 09/28/16 10:05 09/28/16 10:05 PT 12.2 Seconds (9.9-11.8) H 09/24/16 13:10 INR 1.13 (0.93-1.08) H 09/24/16 13:10 APTT 22.2 Seconds (23.7-30.8) L 09/24/16 13:10 Attending/Attestation - Attestation I have personally seen and examined this patient.: Yes I have fully participated in the care of the patient.: Yes I have reviewed all pertinent clinical information, including history, physical exam and plan: Yes Notes (Text): 09/28/16 15:58 61 year old female with past medical history of diabetes, hypertension, and CKD who presented with altered mental status. She was found to have HONK and started on IV fluids and insulin. Her fingersticks have improved and her insulin is being adjusted by endocrinology. She was also found to have sepsis, likely from LE ulcerations. Continue with iv antibiotics as per ID and wound care as per podiatry. LE dopplers negative for DVT. Arterial dopplers are ordered. MRI lower extremities also ordered to rule out OM. Her mental status has improved to baseline. She had EEG yesterday which we will follow. She is also being followed by GI and nephrology. Will follow up with recommendations. Will replete and repeat potassium. Greg Montiel MD Hospitalist.
[2016-09-28 11:44] LABS: ERYTHROCYTE SEDIMENTATION RATE 59 mm/hr (0.0-20.0)
[2016-09-28] MEDS: Meropenem 500 MG in Sodium Chloride 0.9% 100 ML IVPB SCH ×2 (12:05→22:41)
[2016-09-28] MEDS: Vitamins A & D Oint UD Foilpak TOP SCH ×2 (12:07→18:22)
[2016-09-28] MEDS: Multivitamin With Minerals Tab PO SCH (12:07)
[2016-09-28] MEDS: Potassium Chloride 20 mEq 100 ML IVPB SCH ×4 (12:09→22:41)
--- NOTE | 2016-09-28 14:33 | CP.PCM.PN ---
Subjective - Date & Time of Evaluation Date of Evaluation: 09/28/16 Time of Evaluation: 09:10 - Subjective Subjective: Comfortable in bed, more awake, not in distress, less pain in her right leg, no fevers. Objective - Vital Signs/Intake and Output Vital Signs (last 24 hours): Temp Pulse Resp BP Pulse Ox 97.1 F L 110 H 20 115/73 100 09/28/16 06:04 09/28/16 06:04 09/28/16 06:04 09/28/16 06:04 09/27/16 02:00 Intake and Output: 09/27/16 09/28/16 18:59 06:59 Intake Total 1580 Output Total 1950 Balance -370 - Medications Medications: Current Medications Acetaminophen (Tylenol 325mg Tab) 650 mg PO Q6H PRN PRN Reason: pain moderate and higher Heparin Sodium (Porcine) (Heparin) 5,000 units SC Q8H EMETERIO PRN Reason: Protocol Last Admin: 09/28/16 05:08 Dose: Not Given Sodium Chloride (Sodium Chloride 0.45%) 1,000 mls @ 100 mls/hr IV .Q10H EMETERIO Last Admin: 09/28/16 05:07 Dose: Not Given Meropenem 500 mg/ Sodium (Chloride) 100 mls @ 100 mls/hr IVPB Q12 EMETERIO PRN Reason: Protocol Stop: 10/04/16 10:01 Last Admin: 09/27/16 21:31 Dose: 100 mls/hr Insulin Human NPH (Humulin N) 20 units SC HS EMETERIO Last Admin: 09/27/16 21:28 Dose: 20 units Insulin Human Regular (Humulin R Low) 0 units SC ACHS EMETERIO PRN Reason: Protocol Last Admin: 09/27/16 22:24 Dose: Not Given Pantoprazole Sodium (Protonix Inj) 40 mg IVP DAILY EMETERIO Last Admin: 09/27/16 09:37 Dose: 40 mg Silver Sulfadiazine (Silvadene 1% 20 Gm) 1 ea TOP Q12H EMETERIO Last Admin: 09/28/16 05:07 Dose: Not Given Vitamin A (Vitamin A & D Oint Ud Foilpak) 1 ea TOP BID EMETERIO Last Admin: 09/27/16 17:32 Dose: 1 ea - Labs Labs: 09/27/16 05:00 09/27/16 05:00 PT 12.2 Seconds (9.9-11.8) H 09/24/16 13:10 INR 1.13 (0.93-1.08) H 09/24/16 13:10 APTT 22.2 Seconds (23.7-30.8) L 09/24/16 13:10 - Constitutional Appears: Non-toxic, No Acute Distress - Head Exam Head Exam: NORMAL INSPECTION - Neck Exam Neck Exam: absent: Lymphadenopathy, Meningismus - Respiratory Exam Respiratory Exam: Decreased Breath Sounds - Cardiovascular Exam Cardiovascular Exam: +S1, +S2 - GI/Abdominal Exam GI & Abdominal Exam: Soft. absent: Tenderness Assessment and Plan - Assessment and Plan (Free Text) Plan: Assessment Systemic Inflammatory Response Syndrome with acute encephalopathy (probably toxic-metabolic) S/P ventilator-dependent respiratory failure, probably related to diabetic ketoacidosis, consider severe sepsis from right leg wound with ESBL- producing multidrug resistant Klebsiella and methicillin-sensitive Staph aureus in a patient with venous stasis ulcers acute pancreatitis, etiology to be determined acute on chronic renal failure, slowly improving history of adrenal cancer lower extremity venous stasis obesity with BMI 39 DM HTN Plan continue Meropenem day 2 and will continue to monitor patient's clinical response HIV test is non-reactive ultrasound of legs does not show DVT; would check xray of legs to rule out osteomyelitis or deeper infection Reviewed Podiatry note - will also await doppler ultrasound to rule out peripheral arterial disease Will continue to follow clinically
--- NOTE | 2016-09-28 16:03 | PN ---
DATE: 09/28/2016 ENDO FOLLOWUP NOTE ROOM: 260. This is a 61-year-old female with recent uncontrolled type 2 insulin-requiring diabetes, presenting h ere with hyperosmolar hyperglycemic state and ketosis, and is now being followed closely for metaboli c management. Her glycemic levels are fluctuating as noted, and her oral intake continues to be quit e variable and suboptimal, and actually, has been quite uncooperative at this time, and this morning, refused her blood testing and insulin regimen as per the medical staff. Her latest chemistries showed a BUN of 54. Creatinine is 2.0. The CO2 is 24 at this time. The gluc ose levels have ranged from 164-210 and 232 mg/dL. Her creatine kinase is 2481as noted. So at this time, we will continue the same premixed insulin regimen as given to allow for dose equili bration, especially in the light of very variable oral intake at this time. We will continue her Hum ulin 70/30 given as 40 units a.c. breakfast and 30 units a.c. dinner as ordered. We will also contin ue the Humulin NPH given as 20 units subQ at bedtime daily as given. We will also continue her vigor ous IV hydration as ordered. We will obtain serial chemistry and supplement accordingly as needed. We will sign off now from the endocrine care at this time and would recommend the same aforementioned insulin regimen as given, and would titrate incrementally as indicated to optimize metabolic control . We will try to aim metabolically to keep her glucose around 90-130 whether fasting blood preprandi al as noted. Once again, because of the variable oral intake, would hold off further dose adjustment s of her insulin regimen for now. Michelle Kent MD cc: [id number] TT: 09/28/2016 16:03:33 Confirmation # [id number] Dictation # [id number] laura
[2016-09-28 17:06] LABS: CALCIUM 8.4 mg/dL (8.4-10.5)
--- NOTE | 2016-09-28 18:19 | US ---
PROCEDURE: Lower extremity KELI exam HISTORY: Peripheral vascular disease with pain and ulceration. Previous smoker. Diabetes. PHYSICIAN(S): Michael Wills MD. FINDINGS: The exam is limited. Segmental pressures not available on the left side. The right resting KELI is normal, 1.15. The left resting KELI was not obtained. The brachial systolic pressures are symmetric. The PVR waveforms are relatively normal and symmetric bilaterally. No significant occlusive disease is appreciated IMPRESSION: 1. The PVR waveforms are relatively normal and symmetric bilaterally. No significant occlusive disease is demonstrated. 2. Limited study.
--- NOTE | 2016-09-28 20:56 | PN ---
DATE: 09/28/2016 DATE OF SERVICE: 09/28/2016 SUBJECTIVE: This patient was seen and evaluated earlier. The patient is tolerating the diet on isol ation now. The patient has ESBL Klebsiella and MRSA staph, is on isolation for that with venous shawna is ulcer. Clinically, alert, tolerating the diet. PHYSICAL EXAMINATION: VITAL SIGNS: Temperature afebrile, blood pressure is 115/73, respirations 20, pulse 108. HEENT: Atraumatic, anicteric. NECK: Supple. HEART: S1, S2 heard. LUNGS: Bilateral air entry present. ABDOMEN: Soft. There is no tenderness. EXTREMITIES: Bilateral edema present with dressing present. There is a large ulceration in the anterior chin noticed, covered with the dressing. LABORATORY DATA: Hemoglobin is 10.6, hematocrit 33.3, WBC , platelets 112, creatinine 2.0. BUN 51. CPK 2481, lipase has now gone up to 5588, amylase has also gone up to 361. IMPRESSION: This 61-year-old patient admitted with hyperosmolar nonketotic coma with history of ment al status changes now clinically more alert. The patient also now found to have bilateral stasis ulc eration with multidrug resistant organisms, ESBL and MRSA. Additional problem what she has is also e levated amylase and lipase levels. CT and sonograms were reviewed, CT sonogram showed multiple galls tones; however, CBD was normal. CT showed normal contour of the pancreas. RECOMMENDATIONS: It is reasonable to consider changing the diet to clear liquid diet and mainly if t he LFTs the pancreas enzyme continues to be upward trend, we will also request for an MRI to further evaluate of the abdomen, probably MRI of the abdomen with pancreas to evaluate the pancreas with MRC P to further evaluate. Continue the antibiotics as per ID. Thank you very much for allowing us to participate in the care of the patient. We will continue to closely follow up her care and suggest further management based on the clinical course. Toño Morrell MD cc: [phone] TT: 09/28/2016 20:56:19 Confirmation # [id number] Dictation # [id number] tn
[2016-09-28] MEDS: Insulin Human NPH 1 UNITS/0.01 ML SC SCH (21:42)
--- NOTE | 2016-09-29 01:17 | PN ---
DATE: 09/28/2016 SUBJECTIVE: The patient has been transferred out of the intensive care unit and is now on telemetry. She is awake, but is somewhat slow to answer and appears to be somewhat encephalopathic. She is no t in any pain or distress. OBJECTIVE: VITAL SIGNS: Blood pressure is 131/76, heart rate 107, oral temperature 99.1, respiratory rate is 18 . I's and O's in the last 24-hour period are documented as 2100/2200. The remainder of the exam is as follows. GENERAL: The patient appeared to be unkempt and somewhat older than stated age. HEENT: Otherwise, she was normocephalic and atraumatic. I could not appreciate any sinus tenderness . NECK: Supple with mild jugular venous distention. Conjunctivae were neither pale nor were they icte gena. CHEST: Lung pacheco were grossly clear to auscultation anteriorly without any rales, rhonchi or wheez ing. CARDIAC: Had a regular rate and rhythm without any rubs or gallops. ABDOMEN: Soft, centrally obese, distended, but nontender. There was no rebound, guarding or rigidit y. EXTREMITIES: Have 1+ sacral edema also the patient had onychomycosis that was fairly significant as well. NEUROLOGIC: She was somewhat slow to respond as stated above but was nonfocal. VASCULAR: Had no bruits. LABORATORY STUDIES: As follows: White count is 13.2, H and H is 10.6/33.3 with a platelet count of 112,000. There are 87% neutrophils, 11% lymphocytes. Sodium is 147, potassium 3.0, chloride is 115, bicarbonate 26, BUN/creatinine is 51/2.0 with a glucose of 204. Calcium is 8.4, but corrected 9.6 a nd albumin is 2.3. CPK was 2481. There is no new microbiology data to report, the patient is status post lower extremity arterial Dopplers, which were relatively normal and symmetrical bilateral. IMPRESSION AND PLAN: The patient is a 61-year-old obese female (BMI 40 kg/m2) with type 2 diabetes m ellitus that is uncontrolled, chronic kidney disease with an unknown baseline creatinine, brought to [facility] after family had not heard from her in several days and noted to have hyperosm olar nonketotic syndrome with lactic acidosis and acute kidney injury in the setting of hypotension. She was also noted to have hyperkalemia with rhabdomyolysis as well. On presentation, she had a jumana er deficit of approximately 12 liters also, since being admitted, the patient has been on intravenous fluids with a decrease in her creatinine from 7.1-2.0 at present and decrease in her CPK from 4400-2 500. 1. The patient at times is documented to continue to have episodes of hypotension and was as low as 97/59 earlier today. She is currently not on any antihypertensive agents. 2. I will continue the patient on intravenous fluids, especially since her CPK remains elevated, giv en the fact that her sodium is high normal at 147, I will continue her on 1/2 normal saline, but kia use she is hypokalemic, we will add 20 mEq of potassium chloride per liter and I will increase rate 1 50 mL/hour to facilitate excretion of myoglobin in the urine and to facilitate improvement in her fredrick al function. We will repeat her CPK again tomorrow, that it continues to trend down. 3. For deep venous thrombosis prophylaxis in this obese female who was not very sedentary, continue heparin 5000 units subcutaneously every 8 hours and for gastrointestinal prophylaxis she is on pantop razole 40 mg intravenously daily. 4. The patient is also now noted to be on meropenem for severe sepsis from her right lower extremity wound with extended-spectrum beta-lactamase producing multidrug resistant Klebsiella and methicillin -sensitive Staphylococcus aureus and there is no deep venous thrombosis noted on lower extremity veno us Doppler and there is no evidence of peripheral arterial disease on arterial Doppler either. 5. Gastrointestinal followup is also appreciated and if the patient's liver enzymes or pancreatic en zymes trend higher, she will then require an MRI and possible MRCP in the near future. 6. The patient requires ongoing improved glycemic control and endocrinology followup is appreciated as well. Review of systems, past medical history, social history and family history were all reviewed and ther e were no changes. Bhargav Pizano MD cc: [phone] TT: 09/29/2016 01:16:42 Confirmation # [id number] Dictation # [id number] tn
[2016-09-29] MEDS: Potassium Chloride 20 MEQ in Sodium Chloride 0.45% 1,000 ML IV SCH ×4 (04:14→22:20)
[2016-09-29] MEDS: Silver Sulfadiazine 1% Cream (20 gm) TOP SCH ×2 (04:16→17:32)
[2016-09-29 07:52] LABS: ADD MANUAL DIFF? NO
[2016-09-29 07:58] LABS: BASO # 0.03 K/mm3 (0.0-2.0); BASO % 0.3 % (0.0-3.0); EOS # 0.1 (0.0-0.7); EOS % 0.9 % (1.5-5.0); GRAN # 8.48 (1.4-6.5); GRAN % 71.1 % (50.0-68.0); HEMATOCRIT 31.2 % (36.0-48.0); LYMPH # 2.5 (1.2-3.4); LYMPH % 20.7 % (22.0-35.0); MEAN CELL VOLUME 85.2 fL (80.0-105.0); MEAN CORPUSCULAR HEMOGLOBIN 26.2 pg (25.0-35.0); MEAN CORPUSCULAR HGB CONC 30.8 g/dl (31.0-37.0); MEAN PLATELET VOLUME 12.5 fl (7.0-11.0); MONO # 0.8 (0.1-0.6); PLATELET COUNT 106 10^3/uL (120.0-450.0); RED CELL DISTRIBUTION WIDTH 16.8 % (11.5-14.5); WHITE BLOOD COUNT 11.9 10^3/ul (4.5-11.0)
[2016-09-29] MEDS: Insulin Reg-LOW-Coverage SC SCH ×4 (08:16→22:34)
[2016-09-29] MEDS: Insulin Human NPH/Reg 70/30 Vial(3 ml) SC SCH ×2 (08:25→17:34)
[2016-09-29 08:29] LABS: ALB/GLOB RATIO 0.6 (1.1-1.8); BILIRUBIN,TOTAL 0.6 mg/dL (0.2-1.3); POTASSIUM 3.4 mmol/L (3.6-5.0); TOTAL PROTEIN 5.6 g/dL (5.8-8.3)
--- NOTE | 2016-09-29 08:52 | CP.PCM.PN ---
Subjective - Date & Time of Evaluation Date of Evaluation: 09/29/16 Time of Evaluation: 08:48 - Subjective Subjective: 61 y/o female seen at bedside with attending Dr. Hill for bilateral leg ulcerations. Patient states that she refused to get an X ray and MRI of her right leg yesterday. She states that she agrees to have the x ray of her right leg done today. Patient complains of pain in her right leg. She states that she has not gotten up and moved around out of bed yesterday. Dressings to bilateral extremities clean,dry,intact with multipodus boots on both legs. Objective - Vital Signs/Intake and Output Vital Signs (last 24 hours): Temp Pulse Resp BP Pulse Ox 98.7 F 93 H 20 115/69 94 L 09/29/16 06:00 09/29/16 06:00 09/29/16 06:00 09/29/16 06:00 09/29/16 06:00 Intake and Output: 09/29/16 09/29/16 06:59 18:59 Intake Total 1680 Output Total 700 Balance 980 - Medications Medications: Current Medications Acetaminophen (Tylenol 325mg Tab) 650 mg PO Q6H PRN PRN Reason: pain moderate and higher Heparin Sodium (Porcine) (Heparin) 5,000 units SC Q8H EMETERIO PRN Reason: Protocol Last Admin: 09/29/16 05:03 Dose: Not Given Meropenem 500 mg/ Sodium (Chloride) 100 mls @ 100 mls/hr IVPB Q12 EMETERIO PRN Reason: Protocol Stop: 10/04/16 10:01 Last Admin: 09/28/16 22:41 Dose: 100 mls/hr Potassium Chloride 20 meq/ (Sodium Chloride) 1,010 mls @ 150 mls/hr IV .Q6H44M [facility] Last Admin: 09/29/16 04:14 Dose: 150 mls/hr Insulin Human NPH (Humulin N) 20 units SC HS [facility] Last Admin: 09/28/16 21:42 Dose: 20 units Insulin Human Regular (Humulin R Low) 0 units SC ACHS EMETERIO PRN Reason: Protocol Last Admin: 09/29/16 08:16 Dose: Not Given Multivitamins/Minerals (Therapeutic-M Tab) 1 tab PO DAILY [facility] Last Admin: 09/28/16 12:07 Dose: 1 tab Pantoprazole Sodium (Protonix Inj) 40 mg IVP DAILY [facility] Last Admin: 09/28/16 12:05 Dose: 40 mg Silver Sulfadiazine (Silvadene 1% 20 Gm) 1 ea TOP Q12H [facility] Last Admin: 09/29/16 04:16 Dose: Not Given Tramadol HCl (Ultram) 25 mg PO Q8H PRN PRN Reason: Pain, moderate (4-7) Vitamin A (Vitamin A & D Oint Ud Foilpak) 1 ea TOP BID [facility] Last Admin: 09/28/16 18:22 Dose: 1 ea - Labs Labs: 09/29/16 07:00 09/28/16 16:55 PT 12.2 Seconds (9.9-11.8) H 09/24/16 13:10 INR 1.13 (0.93-1.08) H 09/24/16 13:10 APTT 22.2 Seconds (23.7-30.8) L 09/24/16 13:10 - Constitutional Appears: Well, Non-toxic, No Acute Distress - Extremities Exam Additional comments: right lower extremity: Vasc: DP 1/4, PT nonpalpable, TG wnl, CFT < 3 sec to all digits, +3 pitting edema Neuro: grossly dminished Derm: brawny discoloration of skin with evidence of lichenification,full thickness ulcer of anterior right leg 7cm x 11cm x 0.2cm measurement, no probe to bone, no drainage, no purulence, mild malodor - Neurological Exam Neurological Exam: Alert, Awake, Oriented x3 - Psychiatric Exam Psychiatric exam: Normal Affect, Normal Mood Assessment and Plan - Assessment and Plan (Free Text) Assessment: 61 y/o female with bilateral venous stasis ulcerations secondary to diabetes Plan: patient evaluated and seen at bedside with Dr. Hill labs and vitals reviewed, WBC 11.9 patient refused X ray, MRI yesterday of right lower extremity patient will go for X ray of RLE today cleansed rght leg with saline, applied xeroform, ABD, DSD,REILLY apply multipodus boot after x ray continue ABx as per ID podiatry wll continue to monitor while patient remains in house
[2016-09-29] MEDS ORDERED: Potassium Chloride 20 mEq 100 ML IVPB SCH (09:15)
[2016-09-29] MEDS ORDERED: Potassium Chloride 40 mEq/30 ml LIQ UD PO ONE (09:17)
[2016-09-29] MEDS ORDERED: Potassium Chloride 20 mEq ER Tab PO ONE (09:17)
--- NOTE | 2016-09-29 11:26 | PN ---
ADDENDUM: Patient refuse MRCP this am, discussed with patient she will try tomorrow, ordered re-entered for am, continue clear liquid DATE: 09/29/2016 Seen and examined at the bedside earlier this morning. The patient is awake and alert. Denies nausea, vomiting, or abdominal pain. No acute overnight events reported. VITAL SIGNS: Temperature is 98.7, blood pressure 115/69, pulse 92, respirations 20, 94 on room air. LABORATORY DATA: WBC is 11.9, H and H is 9.6 and 31.2, platelets are 106. Her sodium is 148, K is 3.4, BUN 42, creatinine is 1.5, mag is 1.7. Her total bilirubin is 0.6, AST 117, ALT 41, alk phos is 74. Total creatinine kinase is 2243. This is elevated from previous on 09/24. Her amylase is 260 and lipase is 4773. This shows trend downward compared to yesterday, but it is elevated. She went for ultrasound of lower extremities which was negative for occlusive disease. PHYSICAL EXAMINATION: HEENT: Sclerae are anicteric. NECK: Supple. CARDIAC: S1, S2. LUNGS: With decreased breath sounds, but good aeration. ABDOMEN: With bowel sounds, softly obese. No tenderness on palpation. ASSESSMENT: This is a 61-year-old patient with hyperosmolar nonketotic coma with history of mental status change. The patient is more alert now. She also has bilateral stasis ulcerations which are positive for methicillin-resistant Staphylococcus aureus and extended spectrum beta-lactamase. The patient was noted to have elevated amylase and lipase. She did have CT scan of abdomen and pelvis and sonogram which showed multiple gallstones with common bile duct normal. The CAT scan of abdomen and pelvis showed normal contour of the pancreas. This patient with also improving with sepsis. She is pending an MRI of lower extremities to rule out osteomyelitis. Her WBC count is improving though. PLAN: She is pending multiple diagnostic studies, x-ray of her right fibula. The patient is pending MRCP of the abdomen without contrast, rule out CBD stone. She has elevated enzymes. Also pending an MRI of the lower extremities. She has been placed back on the clear liquid diet as her pancreatic enzymes are elevated again. She is on IV antibiotics, meropenem. Continue GI prophylaxis, Protonix. She is on heparin subQ. Continue follow up with ID, endocrinology. The patient was seen and case discussed with Dr. Morrell. Shavonne TRAN cc: [id number] TT: 09/29/2016 11:25:31 Confirmation # [id number] Dictation # [id number] gilberto WARNER
--- NOTE | 2016-09-29 11:27 | CP.PCM.PN ---
<Ruthy Sterling - Last Filed: 09/29/16 13:05> Subjective - Date & Time of Evaluation Date of Evaluation: 09/29/16 Time of Evaluation: 07:00 - Subjective Subjective: Patient seen and examined at bedside. Patient refused LE MRI yesterday evening due to discomfort, but agree to have it done today. Patient also refused silvadene and heparin in the morning. Patient denies of having any headache, weakness, fever, chills, shortness of breath, chest pain, nausea, vomiting, or abdominal pain. Objective - Vital Signs/Intake and Output Vital Signs (last 24 hours): Temp Pulse Resp BP Pulse Ox 98.7 F 93 H 20 115/69 94 L 09/29/16 06:00 09/29/16 06:00 09/29/16 06:00 09/29/16 06:00 09/29/16 06:00 Intake and Output: 09/29/16 09/29/16 06:59 18:59 Intake Total 1680 Output Total 700 Balance 980 - Medications Medications: Current Medications Acetaminophen (Tylenol 325mg Tab) 650 mg PO Q6H PRN PRN Reason: pain moderate and higher Heparin Sodium (Porcine) (Heparin) 5,000 units SC Q8H EMETERIO PRN Reason: Protocol Last Admin: 09/29/16 05:03 Dose: Not Given Meropenem 500 mg/ Sodium (Chloride) 100 mls @ 100 mls/hr IVPB Q12 EMETERIO PRN Reason: Protocol Stop: 10/04/16 10:01 Last Admin: 09/28/16 22:41 Dose: 100 mls/hr Potassium Chloride 20 meq/ (Sodium Chloride) 1,010 mls @ 150 mls/hr IV .Q6H44M [facility] Last Admin: 09/29/16 04:14 Dose: 150 mls/hr Insulin Human NPH (Humulin N) 20 units SC HS EMETERIO Last Admin: 09/28/16 21:42 Dose: 20 units Insulin Human Regular (Humulin R Low) 0 units SC ACHS EMETERIO PRN Reason: Protocol Last Admin: 09/29/16 08:16 Dose: Not Given Multivitamins/Minerals (Therapeutic-M Tab) 1 tab PO DAILY [facility] Last Admin: 09/28/16 12:07 Dose: 1 tab Pantoprazole Sodium (Protonix Inj) 40 mg IVP DAILY [facility] Last Admin: 09/28/16 12:05 Dose: 40 mg Silver Sulfadiazine (Silvadene 1% 20 Gm) 1 ea TOP Q12H EMETERIO Last Admin: 09/29/16 04:16 Dose: Not Given Tramadol HCl (Ultram) 25 mg PO Q8H PRN PRN Reason: Pain, moderate (4-7) Last Admin: 09/29/16 09:32 Dose: 25 mg Vitamin A (Vitamin A & D Oint Ud Foilpak) 1 ea TOP BID EMETERIO Last Admin: 09/28/16 18:22 Dose: 1 ea - Labs Labs: 09/29/16 07:00 09/29/16 07:00 PT 12.2 Seconds (9.9-11.8) H 09/24/16 13:10 INR 1.13 (0.93-1.08) H 09/24/16 13:10 APTT 22.2 Seconds (23.7-30.8) L 09/24/16 13:10 - Constitutional Appears: Non-toxic, No Acute Distress - Head Exam Head Exam: ATRAUMATIC, NORMOCEPHALIC - Eye Exam Eye Exam: Normal appearance, PERRL Pupil Exam: PERRL - ENT Exam ENT Exam: Mucous Membranes Moist - Neck Exam Neck Exam: Normal Inspection - Respiratory Exam Respiratory Exam: Clear to Ausculation Bilateral, NORMAL BREATHING PATTERN. absent: Wheezes, Respiratory Distress - Cardiovascular Exam Cardiovascular Exam: REGULAR RHYTHM, RRR, +S1, +S2. absent: Murmur - GI/Abdominal Exam GI & Abdominal Exam: Soft, Normal Bowel Sounds. absent: Bruit, Tenderness - Exam Additional comments: Morel insert, krishna color urine appreciated - Extremities Exam Extremities Exam: Tenderness. absent: Normal Inspection Additional comments: Bilateral tobin wound dressing clean, dry, intact. No drainage appreciated. Malodorous. - Back Exam Additional comments: left lower back optifoam intact, patch of purple discoloration, non tender. - Neurological Exam Neurological Exam: Alert, Awake, Oriented x3 Neuro motor strength exam: Left Upper Extremity: 5, Right Upper Extremity: 5 - Psychiatric Exam Psychiatric exam: Agitated (patient is easily agitated), Normal Affect, Normal Mood - Skin Skin Exam: Dry, Warm. absent: Normal Color Additional comments: Left posterior thigh purple discoloration 5'' x 3" in size, no open lesion, minimal clear liquid drainage appreciated in the center of lesion. No tenderness. Optifoam dressing applied. Assessment and Plan - Assessment and Plan (Free Text) Assessment: 61 year old female with past medical history of diabetes, CKD ( not on HD), hypertension, and LE venous stasis ulcers admitted for HONK ( resolved), sepsis likely secondary to b/l lower extremity ulcerations, and elevated lipase and CPK HONK resolved - Glycemic control improved 220 today - Follow endocrinology recommendations - Humulin NPH 20units HS - Humulin 70/30 40units ac breakfast, 30units ac dinner - Regular insulin low dose algorithm - Hgb A1c 16.4 - lace cutter referral Elevated lipase - Lipase today 4773, amylase 260, AST 117 - Follow GI and nephrology recommendations - CT abdomen showed no signs of pancreatits - Follow up MRCP - Started liquid diet - Continue IVF Sepsis 2/2 bilateral lower extremity ulceration - Afebrile, WBC 11.9 - likely secondary to b/l le ulcerations - Right leg culture grew klebsiella Pneumoniae and Staphylococcus Aureus - No growth on Blood and urine cultures - Continue antibiotics meropenem - Follow ID's recommendations - Lower extremity MRI showed no evidence osteomyelitis or left thigh hematoma ( see full report) - wound care per podiatry - Silvadene, vitamin A&D - Bilateral lower extremity duplex no evidence of DVT - Lower extremity arterial ultrasound unremarkable Hypokalemia - Potassium 3.4 - Potassium supplement given Hypernatremia - Follow nephrology recommendations - IVF NS - 148 today, continue to monitor - changed to NS with K 20meq @150ml/hr ORI 2/2 Rhabdomyolysis - Follow nephrology recommendations - NS with K 20meq @150ml/hr - Down trending CPK: 4348 on admission, 2343 today - morel in place, output 700cc r/o Seizure -Neurology recommended discontinued keppra -EEG report pending Prophylactic measures -Protonix IV for GI ppx -Heparin 5000 units SC Q8 for DVT ppx -Continue swallow eval -PT OT eval <Greg Montiel - Last Filed: 09/29/16 14:32> Objective - Vital Signs/Intake and Output Vital Signs (last 24 hours): Temp Pulse Resp BP Pulse Ox 98.3 F 100 H 20 121/76 94 L 09/29/16 12:00 09/29/16 12:00 09/29/16 12:00 09/29/16 12:00 09/29/16 06:00 Intake and Output: 09/29/16 09/29/16 06:59 18:59 Intake Total 1680 Output Total 700 Balance 980 - Medications Medications: Current Medications Acetaminophen (Tylenol 325mg Tab) 650 mg PO Q6H PRN PRN Reason: pain moderate and higher Heparin Sodium (Porcine) (Heparin) 5,000 units SC Q8H EMETERIO PRN Reason: Protocol Last Admin: 09/29/16 14:21 Dose: 5,000 units Meropenem 500 mg/ Sodium (Chloride) 100 mls @ 100 mls/hr IVPB Q12 EMETERIO PRN Reason: Protocol Stop: 10/04/16 10:01 Last Admin: 09/29/16 11:36 Dose: 100 mls/hr Potassium Chloride 20 meq/ (Sodium Chloride) 1,010 mls @ 150 mls/hr IV .Q6H44M EMETERIO Last Admin: 09/29/16 04:14 Dose: 150 mls/hr Insulin Human NPH (Humulin N) 20 units SC HS EMETERIO Last Admin: 09/28/16 21:42 Dose: 20 units Insulin Human Regular (Humulin R Low) 0 units SC ACHS EMETERIO PRN Reason: Protocol Last Admin: 09/29/16 12:24 Dose: Not Given Multivitamins/Minerals (Therapeutic-M Tab) 1 tab PO DAILY EMETERIO Last Admin: 09/29/16 11:37 Dose: 1 tab Pantoprazole Sodium (Protonix Inj) 40 mg IVP DAILY EMETERIO Last Admin: 09/29/16 11:37 Dose: 40 mg Silver Sulfadiazine (Silvadene 1% 20 Gm) 1 ea TOP Q12H EMETERIO Last Admin: 09/29/16 04:16 Dose: Not Given Tramadol HCl (Ultram) 25 mg PO Q8H PRN PRN Reason: Pain, moderate (4-7) Last Admin: 09/29/16 09:32 Dose: 25 mg Vitamin A (Vitamin A & D Oint Ud Foilpak) 1 ea TOP BID EMETERIO Last Admin: 09/29/16 11:38 Dose: 1 ea - Labs Labs: 09/29/16 07:00 09/29/16 07:00 PT 12.2 Seconds (9.9-11.8) H 09/24/16 13:10 INR 1.13 (0.93-1.08) H 09/24/16 13:10 APTT 22.2 Seconds (23.7-30.8) L 09/24/16 13:10 Attending/Attestation - Attestation I have personally seen and examined this patient.: Yes I have fully participated in the care of the patient.: Yes I have reviewed all pertinent clinical information, including history, physical exam and plan: Yes Notes (Text): 09/29/16 14:30 61 year old female with past medical history of diabetes, hypertension, and CKD who presented with altered mental status. She was found to have HONK and started on IV fluids and insulin. Her fingersticks have improved and her insulin is being adjusted by endocrinology. She was also found to have sepsis, likely from LE ulcerations. Continue with iv antibiotics as per ID and wound care as per podiatry. LE dopplers negative for DVT. Arterial dopplers are ordered. MRI lower extremities were done today to rule out OM; will follow. Her mental status has improved to baseline. She had EEG earlier this week with report pending. Continue with iv fluids and per nephrology. Will replete and repeat potassium. She is also being seen by GI with elevated lipase level. MRCP is ordered. Greg Montiel MD Hospitalist.
[2016-09-29] MEDS: Meropenem 500 MG in Sodium Chloride 0.9% 100 ML IVPB SCH ×2 (11:36→22:33)
[2016-09-29] MEDS: Multivitamin With Minerals Tab PO SCH (11:37)
[2016-09-29] MEDS: Vitamins A & D Oint UD Foilpak TOP SCH ×2 (11:38→17:39)
--- NOTE | 2016-09-29 12:46 | MRI ---
PROCEDURE: MRI of the right tibia and fibula without contrast HISTORY: r/o right tobin osteomyelitis COMPARISON: Comparison is made to the previous TECHNIQUE: Axial coronal and sagittal MRI images of the right tibia and fibula were obtained with and without fat suppression. No IV contrast was given. FINDINGS: There is no evidence of bone marrow edema or cortical destruction/erosion seen in the right tibia and fibula to suggest osteomyelitis. Heterogeneous signal seen in the skin and subcutaneous region at the proximal and distal portion of the right leg more prominent posteriorly and laterally. No evidence of discrete fluid collection. Mild diffuse increased signal in the muscles also noted suggestive of mild myositis. IMPRESSION: No MRI evidence of osteomyelitis at the right tibia and fibula. Skin and subcutaneous stranding suggestive of cellulitis and inflammatory process. Foci of skin defects consistent with ulcer more prominent at the lateral aspect of the distal right leg.
--- NOTE | 2016-09-29 13:02 | MRI ---
PROCEDURE: MRI of the left thigh without contrast HISTORY: r/o thigh posterior hematoma, anterior tobin osteo COMPARISON: No prior similar exam available for comparison. TECHNIQUE: Axial coronal and sagittal MRI images of the left thigh were obtained without contrast administration. FINDINGS: This study is limited due to patient's motion. The left femur is normal in shape. No evidence of bone marrow edema or cortical destruction. Diffuse heterogeneous increased signal seen in the soft tissue of the left thigh without evidence of discrete fluid collection. There are diffuse subcutaneous stranding at the lateral aspect of the proximal and mid left thigh. Diffuse abnormal increased signal in the left thigh muscles suggestive of myositis. There are [id number] enlarged left groin lymph nodes. There is small to moderate-sized partially imaged left knee joint effusion. IMPRESSION: Limited study due to patient motion. No evidence of hematoma or discrete fluid collection. Diffuse increased signal in the soft tissue of the left thigh. Left groin radzyx-ce-ogbhxyxvzz enlarged lymph nodes. Partially imaged small to moderate-sized left knee joint effusion.
--- NOTE | 2016-09-29 15:03 | CP.PCM.PN ---
Subjective - Date & Time of Evaluation Date of Evaluation: 09/29/16 Time of Evaluation: 09:15 - Subjective Subjective: Undergoing MRI of the legs, patient is comfortable, not in distress, no fevers, less pain in the right leg. Objective - Vital Signs/Intake and Output Vital Signs (last 24 hours): Temp Pulse Resp BP Pulse Ox 98.7 F 93 H 20 115/69 94 L 09/29/16 06:00 09/29/16 06:00 09/29/16 06:00 09/29/16 06:00 09/29/16 06:00 Intake and Output: 09/28/16 09/29/16 18:59 06:59 Intake Total 1680 Output Total 700 Balance 980 - Medications Medications: Current Medications Acetaminophen (Tylenol 325mg Tab) 650 mg PO Q6H PRN PRN Reason: pain moderate and higher Heparin Sodium (Porcine) (Heparin) 5,000 units SC Q8H EMETERIO PRN Reason: Protocol Last Admin: 09/29/16 05:03 Dose: Not Given Meropenem 500 mg/ Sodium (Chloride) 100 mls @ 100 mls/hr IVPB Q12 EMETERIO PRN Reason: Protocol Stop: 10/04/16 10:01 Last Admin: 09/28/16 22:41 Dose: 100 mls/hr Potassium Chloride 20 meq/ (Sodium Chloride) 1,010 mls @ 150 mls/hr IV .Q6H44M [facility] Last Admin: 09/29/16 04:14 Dose: 150 mls/hr Insulin Human NPH (Humulin N) 20 units SC HS [facility] Last Admin: 09/28/16 21:42 Dose: 20 units Insulin Human Regular (Humulin R Low) 0 units SC ACHS EMETERIO PRN Reason: Protocol Last Admin: 09/28/16 23:00 Dose: Not Given Multivitamins/Minerals (Therapeutic-M Tab) 1 tab PO DAILY [facility] Last Admin: 09/28/16 12:07 Dose: 1 tab Pantoprazole Sodium (Protonix Inj) 40 mg IVP DAILY [facility] Last Admin: 09/28/16 12:05 Dose: 40 mg Silver Sulfadiazine (Silvadene 1% 20 Gm) 1 ea TOP Q12H [facility] Last Admin: 09/29/16 04:16 Dose: Not Given Vitamin A (Vitamin A & D Oint Ud Foilpak) 1 ea TOP BID [facility] Last Admin: 09/28/16 18:22 Dose: 1 ea - Labs Labs: 09/28/16 10:05 09/28/16 16:55 PT 12.2 Seconds (9.9-11.8) H 09/24/16 13:10 INR 1.13 (0.93-1.08) H 09/24/16 13:10 APTT 22.2 Seconds (23.7-30.8) L 09/24/16 13:10 - Constitutional Appears: Non-toxic, No Acute Distress - Head Exam Head Exam: NORMAL INSPECTION Assessment and Plan - Assessment and Plan (Free Text) Plan: Assessment Systemic Inflammatory Response Syndrome with acute encephalopathy (probably toxic-metabolic) S/P ventilator-dependent respiratory failure, probably related to diabetic ketoacidosis, consider severe sepsis from right leg wound with ESBL- producing multidrug resistant Klebsiella and methicillin-sensitive Staph aureus in a patient with venous stasis ulcers, with no evidence of osteomyelitis on MRI of the legs, clinically improving acute pancreatitis, etiology to be determined acute on chronic renal failure, slowly improving history of adrenal cancer lower extremity venous stasis obesity with BMI 39 DM HTN Plan continue Meropenem day 3 and will continue to monitor patient's clinical response; would recommend 7-10 days of therapy HIV test is non-reactive ultrasound of legs does not show DVT; reviewed MRI of the legs doppler ultrasound did not show peripheral arterial disease in the lower extremities Will continue to follow clinically
[2016-09-29] MEDS: Insulin Human NPH 1 UNITS/0.01 ML SC SCH (22:20)
--- NOTE | 2016-09-29 23:45 | PN ---
DATE: 09/29/2016 SUBJECTIVE: This patient was seen and evaluated earlier. This is an addendum to the GI progress rep ort dictated by Shavonne Self NP. The patient is to get an MRI of the lower extremities. The patient then refused to have this MRI and the MRCP. The patient denies any abdominal pain and wants to eat. ABDOMEN: Soft, no tenderness. LABORATORY DATA: Lipase 11.9. The patient's total creatine kinase is elevated to 2343, ____ _ but lipase is 473. IMPRESSION: Discussed with the patient at length. The patient finally to have the MRI and the MRCP which will be rescheduled for tomorrow. Thank you for the opportunity to take care of the patient. Toño Morrell MD cc: [id number] TT: 09/29/2016 23:44:58 Confirmation # [id number] Dictation # [id number] ln
--- NOTE | 2016-09-30 02:32 | PN ---
DATE: 09/29/2016 SUBJECTIVE: The patient was seen earlier today on telemetry. She appeared to be fairly comfortable, but at times had periods of confusion. She was lethargic, but arousable. Denied any complaints. OBJECTIVE: VITAL SIGNS: Blood pressure is 121/83, heart rate 75, oral temperature is 98.5, respiratory rate is 18, oxygen saturation 97%. I's and O's 1800/1000. The remainder of the exam is as follows: HEENT: The patient, as stated above, appeared to be somewhat encephalopathic, but she was normocepha lic and atraumatic. There was no sinus tenderness that I could appreciate. Conjunctivae were neithe r pale nor were they icteric. CHEST: Lung pacheco were grossly clear to auscultation on my exam, but the patient was not cooperativ e with deep breaths. CARDIAC: Had a regular rate and rhythm without any rubs or gallops. ABDOMEN: Soft, mildly distended, but nontender, without any rebound, guarding or rigidity. EXTREMITIES: Had 1-2+ edema. Lower extremities had chronic stasis changes, as well as thickening of her skin. NEUROLOGIC: As stated above, confused, occasionally disoriented, nonfocal. LABORATORY STUDIES: As follows: White count is 11.9, H and H 9.6/31.2 with a platelet count of 106, 000. There are 72% neutrophils, 21% lymphocytes, 7% monocytes, only 1% eosinophils. Sodium is 148, potassium is low at 3.4, chloride is 116, bicarbonate 26, BUN/creatinine is 42/1.5 with a glucose of 215. Calcium is 8, but corrects to approximately 9.3 since the albumin is 2.2. CPK remains elevated at 2343. There is no new microbiology data to report. IMAGING: MRI did not reveal any evidence of osteomyelitis in the right tibia or fibula. An MRI of h er left lower extremity was limited due to patient motion. She was noted to have moderately enlarged left groin lymph nodes. IMPRESSION AND PLAN: The patient is a 61-year-old obese female (BMI 40 kg/m2) with type 2 diabetes m ellitus that is uncontrolled, chronic kidney disease with unknown baseline creatinine, brought to [facility] ([facility]] after family had not heard from her in several days and noted to have hyperosmola r nonketotic syndrome with lactic acidosis, acute kidney injury in the setting of hypotension and a 1 2-liter of water deficit. She was also noted to have hyperkalemia with acute kidney injury, as well as rhabdomyolysis. 1. The patient's acute kidney injury is slowly improving with a decrease in creatinine from 7.1-1.5. Of note, because she continues to have rhabdomyolysis, she does require ongoing intravenous fluids and is on 1/2 normal saline with 20 mEq of potassium chloride per liter at 150 Ml per hour. We will also supplement her potassium appropriately as well today. 2. With respect to her persistently elevated CPK, she is not on any statin therapy at present. We w ill check a TSH, however, since hypothyroidism can also result in myositis and could explain the rebecca ent's apathetic state. 3. MRI report is as stated above. Unfortunately, however, motion artifact limited complete evaluati on of her left lower extremity. The patient is currently on day #3 out of 7-10 days of meropenem. S he has not noted to have any peripheral arterial disease in the lower extremities, nor any looked kalina ous Doppler. 4. Gastrointestinal followup is appreciated as well. Given the fact that the patient's lipase today is 4773, she is to have an MRI as well as MRCP when she is agreeable. 5. For gastrointestinal prophylaxis, the patient remains on pantoprazole and, for deep vein thrombos is prophylaxis, on subcutaneous heparin. Review of systems, past medical history, social history and family history were all reviewed and ther e were no new changes. Bhargav Pizano MD cc: [id number] TT: 09/30/2016 02:31:28 Confirmation # [id number] Dictation # [id number] mn
[2016-09-30] MEDS: Potassium Chloride 20 MEQ in Sodium Chloride 0.45% 1,000 ML IV SCH ×2 (04:58→12:26)
[2016-09-30] MEDS: Silver Sulfadiazine 1% Cream (20 gm) TOP SCH ×2 (05:25→17:11)
[2016-09-30] MEDS: Insulin Reg-LOW-Coverage SC SCH ×4 (08:22→22:41)
[2016-09-30] MEDS: Insulin Human NPH/Reg 70/30 Vial(3 ml) SC SCH ×2 (08:38→17:12)
[2016-09-30 10:13] LABS: ADD MANUAL DIFF? NO
[2016-09-30 10:19] LABS: BASO # 0.03 K/mm3 (0.0-2.0); BASO % 0.2 % (0.0-3.0); EOS # 0.2 (0.0-0.7); EOS % 1.3 % (1.5-5.0); GRAN % 69.1 % (50.0-68.0); HEMATOCRIT 30.8 % (36.0-48.0); LYMPH # 2.7 (1.2-3.4); LYMPH % 22.2 % (22.0-35.0); MEAN CELL VOLUME 87.3 fL (80.0-105.0); MEAN CORPUSCULAR HEMOGLOBIN 27.2 pg (25.0-35.0); MEAN CORPUSCULAR HGB CONC 31.2 g/dl (31.0-37.0); MEAN PLATELET VOLUME 12.6 fl (7.0-11.0); MONO # 0.9 (0.1-0.6); MONO % 7.2 % (1.0-6.0); PLATELET COUNT 137 10^3/uL (120.0-450.0); RED CELL DISTRIBUTION WIDTH 16.9 % (11.5-14.5); WHITE BLOOD COUNT 12.3 10^3/ul (4.5-11.0)
[2016-09-30 10:25] LABS: ALB/GLOB RATIO 0.6 (1.1-1.8); BILIRUBIN,TOTAL 0.5 mg/dL (0.2-1.3); CALCIUM 7.7 mg/dL (8.4-10.5); POTASSIUM 3.6 mmol/L (3.6-5.0)
--- NOTE | 2016-09-30 10:47 | CP.PCM.PN ---
<BhaktiMana - Last Filed: 09/30/16 10:44> Subjective - Date & Time of Evaluation Date of Evaluation: 09/30/16 Time of Evaluation: 10:44 - Subjective Subjective: 61 y/o female seen at bedside for bilateral leg ulcerations. Patient states that she had MRI of her legs yesterday. Patient complains of pain in her right leg upon palpation. Physical therapist present bedside to assist her getting out of bed into chair today. Dressings to bilateral extremities clean,dry, intact with multipodus boots off of both legs. She states they are uncomfortable to wear while in bed. Patient denies n/f/v/c/d/sob. Objective - Vital Signs/Intake and Output Vital Signs (last 24 hours): Temp Pulse Resp BP Pulse Ox 97.8 F 101 H 20 137/73 93 L 09/30/16 05:30 09/30/16 05:30 09/30/16 05:30 09/30/16 05:30 09/30/16 05:30 Intake and Output: 09/30/16 09/30/16 06:59 18:59 Intake Total 2590 Output Total 850 Balance 1740 - Medications Medications: Current Medications Acetaminophen (Tylenol 325mg Tab) 650 mg PO Q6H PRN PRN Reason: pain moderate and higher Heparin Sodium (Porcine) (Heparin) 5,000 units SC Q8H EMET[facility]IO PRN Reason: Protocol Last Admin: 09/30/16 05:25 Dose: Not Given Meropenem 500 mg/ Sodium (Chloride) 100 mls @ 100 mls/hr IVPB Q12 EMETERIO PRN Reason: Protocol Stop: 10/04/16 10:01 Last Admin: 09/29/16 22:33 Dose: 100 mls/hr Potassium Chloride 20 meq/ (Sodium Chloride) 1,010 mls @ 150 mls/hr IV .Q6H44M [facility] Last Admin: 09/30/16 04:58 Dose: Not Given Insulin Human NPH (Humulin N) 20 units SC HS [facility] Last Admin: 09/29/16 22:20 Dose: 20 units Insulin Human Regular (Humulin R Low) 0 units SC ACHS EM[facility]IO PRN Reason: Protocol Last Admin: 09/30/16 08:22 Dose: Not Given Multivitamins/Minerals (Therapeutic-M Tab) 1 tab PO DAILY [facility] Last Admin: 09/29/16 11:37 Dose: 1 tab Pantoprazole Sodium (Protonix Inj) 40 mg IVP DAILY [facility] Last Admin: 09/29/16 11:37 Dose: 40 mg Silver Sulfadiazine (Silvadene 1% 20 Gm) 1 ea TOP Q12H [facility] Last Admin: 09/30/16 05:25 Dose: Not Given Tramadol HCl (Ultram) 25 mg PO Q8H PRN PRN Reason: Pain, moderate (4-7) Last Admin: 09/29/16 22:16 Dose: 25 mg Vitamin A (Vitamin A & D Oint Ud Foilpak) 1 ea TOP BID [facility] Last Admin: 09/29/16 17:39 Dose: 1 ea - Labs Labs: 09/30/16 10:00 09/30/16 10:00 PT 12.2 Seconds (9.9-11.8) H 09/24/16 13:10 INR 1.13 (0.93-1.08) H 09/24/16 13:10 APTT 22.2 Seconds (23.7-30.8) L 09/24/16 13:10 - Constitutional Appears: Well, Non-toxic, No Acute Distress - Extremities Exam Additional comments: right lower extremity: Vasc: DP 1/4, PT nonpalpable, TG wnl, CFT < 3 sec to all digits, +3 pitting edema Neuro: grossly diminished Derm: brawny discoloration of skin with evidence of lichenification,full thickness ulcer of anterior right leg 7cm x 11cm x 0.2cm measurement, no probe to bone, no drainage, no purulence, mild malodor ortho: pain on palpation to Right anterior leg - Neurological Exam Neurological Exam: Alert, Awake, Oriented x3 - Psychiatric Exam Psychiatric exam: Normal Affect, Normal Mood Assessment and Plan - Assessment and Plan (Free Text) Assessment: 61 year old female patient with PMHx of obesity, diabetes, CKD, hypertension presents with chronic venous stasis ulceration to bilateral lower extremities Plan: patient evaluated and seen at bedside discussed in detail with attending Dr. Jean labs and vitals reviewed, WBC 12.3 MRI of lower extremities b/l shows no evidence of OM, cellulitis and soft tissue swelling of right lower extremity noted cleansed rght leg with saline, applied xeroform, ABD, DSD,REILLY applied DSD, REILLY to LLE apply multipodus boot to be worn at all times when bed bound continue ABx as per ID podiatry wll continue to monitor while patient remains in house <Jaleel Jean - Last Filed: 09/30/16 11:27> Objective - Vital Signs/Intake and Output Vital Signs (last 24 hours): Temp Pulse Resp BP Pulse Ox 97.8 F 101 H 20 137/73 93 L 09/30/16 05:30 09/30/16 05:30 09/30/16 05:30 09/30/16 05:30 09/30/16 05:30 Intake and Output: 09/30/16 09/30/16 06:59 18:59 Intake Total 2590 Output Total 850 Balance 1740 - Medications Medications: Current Medications Acetaminophen (Tylenol 325mg Tab) 650 mg PO Q6H PRN PRN Reason: pain moderate and higher Heparin Sodium (Porcine) (Heparin) 5,000 units SC Q8H [facility]IO PRN Reason: Protocol Last Admin: 09/30/16 05:25 Dose: Not Given Meropenem 500 mg/ Sodium (Chloride) 100 mls @ 100 mls/hr IVPB Q12 EMETERIO PRN Reason: Protocol Stop: 10/04/16 10:01 Last Admin: 09/30/16 10:58 Dose: 100 mls/hr Potassium Chloride 20 meq/ (Sodium Chloride) 1,010 mls @ 150 mls/hr IV .Q6H44M [facility] Last Admin: 09/30/16 04:58 Dose: Not Given Insulin Human NPH (Humulin N) 20 units SC HS [facility] Last Admin: 09/29/16 22:20 Dose: 20 units Insulin Human Regular (Humulin R Low) 0 units SC ACHS [facility] PRN Reason: Protocol Last Admin: 09/30/16 08:22 Dose: Not Given Multivitamins/Minerals (Therapeutic-M Tab) 1 tab PO DAILY [facility] Last Admin: 09/30/16 10:57 Dose: 1 tab Pantoprazole Sodium (Protonix Inj) 40 mg IVP DAILY [facility] Last Admin: 09/30/16 10:57 Dose: 40 mg Silver Sulfadiazine (Silvadene 1% 20 Gm) 1 ea TOP Q12H [facility] Last Admin: 09/30/16 05:25 Dose: Not Given Tramadol HCl (Ultram) 25 mg PO Q8H PRN PRN Reason: Pain, moderate (4-7) Last Admin: 09/29/16 22:16 Dose: 25 mg Vitamin A (Vitamin A & D Oint Ud Foilpak) 1 ea TOP BID [facility] Last Admin: 09/30/16 10:57 Dose: 1 ea - Labs Labs: 09/30/16 10:00 09/30/16 10:00 PT 12.2 Seconds (9.9-11.8) H 09/24/16 13:10 INR 1.13 (0.93-1.08) H 09/24/16 13:10 APTT 22.2 Seconds (23.7-30.8) L 09/24/16 13:10 Attending/Attestation - Attestation I have personally seen and examined this patient.: Yes I have fully participated in the care of the patient.: Yes I have reviewed all pertinent clinical information, including history, physical exam and plan: Yes
[2016-09-30] MEDS: Multivitamin With Minerals Tab PO SCH (10:57)
[2016-09-30] MEDS: Vitamins A & D Oint UD Foilpak TOP SCH ×2 (10:57→17:11)
[2016-09-30] MEDS: Meropenem 500 MG in Sodium Chloride 0.9% 100 ML IVPB SCH (10:58)
--- NOTE | 2016-09-30 12:20 | CP.PCM.PN ---
<Ruthy Sterling - Last Filed: 09/30/16 13:25> Subjective - Date & Time of Evaluation Date of Evaluation: 09/30/16 Time of Evaluation: 07:00 - Subjective Subjective: Patient seen and examined at bedside. During dinner yesterday patient had coughs while on liquid diet. Diet was changed back to moderated consistency puree nectar. Patient once again refused medications and blood works in the morning. Patient agreed to undergo MRCP yesterday but refused this morning. Patient denies headache, weakness, fever, chills, shortness of breath, chest pain, nausea, or vomiting. Objective - Vital Signs/Intake and Output Vital Signs (last 24 hours): Temp Pulse Resp BP Pulse Ox 97.1 F L 102 H 19 112/74 93 L 09/30/16 12:00 09/30/16 12:00 09/30/16 12:00 09/30/16 12:00 09/30/16 05:30 Intake and Output: 09/30/16 09/30/16 06:59 18:59 Intake Total 2590 Output Total 850 Balance 1740 - Medications Medications: Current Medications Acetaminophen (Tylenol 325mg Tab) 650 mg PO Q6H PRN PRN Reason: pain moderate and higher Heparin Sodium (Porcine) (Heparin) 5,000 units SC Q8H EMETERIO PRN Reason: Protocol Last Admin: 09/30/16 05:25 Dose: Not Given Meropenem 500 mg/ Sodium (Chloride) 100 mls @ 100 mls/hr IVPB Q12 EMETERIO PRN Reason: Protocol Stop: 10/04/16 10:01 Last Admin: 09/30/16 10:58 Dose: 100 mls/hr Potassium Chloride 20 meq/ (Sodium Chloride) 1,010 mls @ 150 mls/hr IV .Q6H44M [facility] Last Admin: 09/30/16 04:58 Dose: Not Given Insulin Human NPH (Humulin N) 20 units SC HS [facility] Last Admin: 09/29/16 22:20 Dose: 20 units Insulin Human Regular (Humulin R Low) 0 units SC ACHS EMETERIO PRN Reason: Protocol Last Admin: 09/30/16 12:12 Dose: Not Given Multivitamins/Minerals (Therapeutic-M Tab) 1 tab PO DAILY [facility] Last Admin: 09/30/16 10:57 Dose: 1 tab Pantoprazole Sodium (Protonix Inj) 40 mg IVP DAILY [facility] Last Admin: 09/30/16 10:57 Dose: 40 mg Silver Sulfadiazine (Silvadene 1% 20 Gm) 1 ea TOP Q12H [facility] Last Admin: 09/30/16 05:25 Dose: Not Given Tramadol HCl (Ultram) 25 mg PO Q8H PRN PRN Reason: Pain, moderate (4-7) Last Admin: 09/29/16 22:16 Dose: 25 mg Vitamin A (Vitamin A & D Oint Ud Foilpak) 1 ea TOP BID [facility] Last Admin: 09/30/16 10:57 Dose: 1 ea - Labs Labs: 09/30/16 10:00 09/30/16 10:00 PT 12.2 Seconds (9.9-11.8) H 09/24/16 13:10 INR 1.13 (0.93-1.08) H 09/24/16 13:10 APTT 22.2 Seconds (23.7-30.8) L 09/24/16 13:10 - Constitutional Appears: Non-toxic, No Acute Distress, Chronically Ill - Head Exam Head Exam: ATRAUMATIC, NORMAL INSPECTION - Eye Exam Eye Exam: EOMI, PERRL Pupil Exam: PERRL - ENT Exam ENT Exam: Mucous Membranes Moist - Neck Exam Neck Exam: Normal Inspection - Respiratory Exam Respiratory Exam: Clear to Ausculation Bilateral, NORMAL BREATHING PATTERN. absent: Wheezes, Respiratory Distress - Cardiovascular Exam Cardiovascular Exam: REGULAR RHYTHM, RRR, +S1, +S2. absent: Murmur - GI/Abdominal Exam GI & Abdominal Exam: Soft, Normal Bowel Sounds. absent: Bruit, Guarding, Tenderness, Hernia - Exam Additional comments: Morel in place - Extremities Exam Extremities Exam: Tenderness Additional comments: Bilateral tobin wound dressing clean, dry, intact. No drainage appreciated. - Back Exam Additional comments: left lower back optifoam intact, patch of purple discoloration, non tender. - Neurological Exam Neurological Exam: Alert, Awake, Oriented x3 - Psychiatric Exam Psychiatric exam: Normal Affect, Normal Mood - Skin Skin Exam: Dry, Intact, Warm Additional comments: Left posterior thigh purple discoloration 5'' x 3" in size, minimal clear liquid drainage appreciated in the center of the blister. No tenderness. Assessment and Plan - Assessment and Plan (Free Text) Assessment: 61 year old female with past medical history of diabetes, CKD ( not on HD), hypertension, and LE venous stasis ulcers admitted for HONK ( resolved), sepsis likely secondary to b/l lower extremity ulcerations, and elevated lipase and CPK HONK resolved - Glycemic control improved 238 today - Follow endocrinology recommendations - Humulin NPH 20units HS - Humulin 70/30 40units ac breakfast, 30units ac dinner - Regular insulin low dose algorithm - Hgb A1c 16.4 - diabetes educator referral Sepsis 2/2 bilateral lower extremity ulceration - Afebrile, WBC 12.3 - likely secondary to b/l le ulcerations - Right leg culture grew klebsiella Pneumoniae and Staphylococcus Aureus - No growth on Blood and urine cultures - Continue antibiotics meropenem (day 4) will required 7 to 10 days total - Follow ID's recommendations - Lower extremity MRI showed no evidence osteomyelitis or left thigh hematoma ( see full report) - wound care per podiatry - Silvadene, vitamin A&D - Bilateral lower extremity duplex no evidence of DVT - Lower extremity arterial ultrasound unremarkable Elevated lipase - Lipase today 3551 - Follow GI and nephrology recommendations - CT abdomen showed no signs of pancreatits - Patient agreed to MRCP today, but refused this AM. Will convince patient to go this PM per GI - Continue IVF - [place] thick diet Hypokalemia - Potassium 3.6 - Supplement as needed Hypernatremia - Follow nephrology recommendations - IVF NS - 142 today, continue to monitor - changed to NS with K 20meq @150ml/hr ORI 2/2 Rhabdomyolysis - Follow nephrology recommendations - NS with K 20meq @150ml/hr - Down trending CPK: 4348 on admission, 1174 today - morel in place, output 850cc r/o Seizure -Neurology recommended discontinued keppra -EEG report pending Prophylactic measures -Protonix IV for GI ppx -Heparin 5000 units SC Q8 for DVT ppx -Continue swallow eval -PT OT eval <Greg Montiel - Last Filed: 09/30/16 13:33> Objective - Vital Signs/Intake and Output Vital Signs (last 24 hours): Temp Pulse Resp BP Pulse Ox 97.1 F L 102 H 19 112/74 93 L 09/30/16 12:00 09/30/16 12:00 09/30/16 12:00 09/30/16 12:00 09/30/16 05:30 Intake and Output: 09/30/16 09/30/16 06:59 18:59 Intake Total 2590 Output Total 850 Balance 1740 - Medications Medications: Current Medications Acetaminophen (Tylenol 325mg Tab) 650 mg PO Q6H PRN PRN Reason: pain moderate and higher Heparin Sodium (Porcine) (Heparin) 5,000 units SC Q8H EMETERIO PRN Reason: Protocol Last Admin: 09/30/16 05:25 Dose: Not Given Meropenem 500 mg/ Sodium (Chloride) 100 mls @ 100 mls/hr IVPB Q12 EMETERIO PRN Reason: Protocol Stop: 10/04/16 10:01 Last Admin: 09/30/16 10:58 Dose: 100 mls/hr Potassium Chloride 20 meq/ (Sodium Chloride) 1,010 mls @ 150 mls/hr IV .Q6H44M [facility] Last Admin: 09/30/16 12:26 Dose: 150 mls/hr Insulin Human NPH (Humulin N) 20 units SC HS [facility] Last Admin: 09/29/16 22:20 Dose: 20 units Insulin Human Regular (Humulin R Low) 0 units SC ACHS [facility]IO PRN Reason: Protocol Last Admin: 09/30/16 12:12 Dose: Not Given Multivitamins/Minerals (Therapeutic-M Tab) 1 tab PO DAILY [facility] Last Admin: 09/30/16 10:57 Dose: 1 tab Pantoprazole Sodium (Protonix Inj) 40 mg IVP DAILY [facility] Last Admin: 09/30/16 10:57 Dose: 40 mg Silver Sulfadiazine (Silvadene 1% 20 Gm) 1 ea TOP Q12H [facility] Last Admin: 09/30/16 05:25 Dose: Not Given Tramadol HCl (Ultram) 25 mg PO Q8H PRN PRN Reason: Pain, moderate (4-7) Last Admin: 09/29/16 22:16 Dose: 25 mg Vitamin A (Vitamin A & D Oint Ud Foilpak) 1 ea TOP BID [facility] Last Admin: 09/30/16 10:57 Dose: 1 ea - Labs Labs: 09/30/16 10:00 09/30/16 10:00 PT 12.2 Seconds (9.9-11.8) H 09/24/16 13:10 INR 1.13 (0.93-1.08) H 09/24/16 13:10 APTT 22.2 Seconds (23.7-30.8) L 09/24/16 13:10 Attending/Attestation - Attestation I have personally seen and examined this patient.: Yes I have fully participated in the care of the patient.: Yes I have reviewed all pertinent clinical information, including history, physical exam and plan: Yes Notes (Text): 09/30/16 13:30 61 year old female with past medical history of diabetes, hypertension, and CKD who presented with altered mental status (now resolved). She was found to have HONK and started on IV fluids and insulin. Her fingersticks have since improved. She is being followed by endocrinology who is adjusting gregg insulin. She was also found to have sepsis, likely from LE ulcerations. MRI lower extremities are negative for osteomyelitis. Continue with iv antibiotics as per ID and wound care as per podiatry. LE dopplers negative for DVT. Arterial dopplers were limited but negative. She is on iv fluids and her renal function also has been improved. Potassium was repleted yesterday with normal level today. She is also being seen by GI with elevated lipase level which is also improving. Continue with diet as tolerated. She denies any abdominal pain. She is pending MRCP, if patient agrees. PT evaluation was requested and pending. Greg Montiel MD Hospitalist.
--- NOTE | 2016-09-30 13:47 | CP.PCM.PN ---
Subjective - Date & Time of Evaluation Date of Evaluation: 09/30/16 Time of Evaluation: 09:30 - Subjective Subjective: Comfortable in bed, not in distress, no fevers, less pain in the right leg, breathing a little better today. Objective - Vital Signs/Intake and Output Vital Signs (last 24 hours): Temp Pulse Resp BP Pulse Ox 97.8 F 101 H 20 137/73 93 L 09/30/16 05:30 09/30/16 05:30 09/30/16 05:30 09/30/16 05:30 09/30/16 05:30 Intake and Output: 09/30/16 09/30/16 06:59 18:59 Intake Total 2590 Output Total 850 Balance 1740 - Medications Medications: Current Medications Acetaminophen (Tylenol 325mg Tab) 650 mg PO Q6H PRN PRN Reason: pain moderate and higher Heparin Sodium (Porcine) (Heparin) 5,000 units SC Q8H [facility] PRN Reason: Protocol Last Admin: 09/30/16 05:25 Dose: Not Given Meropenem 500 mg/ Sodium (Chloride) 100 mls @ 100 mls/hr IVPB Q12 [facility]IO PRN Reason: Protocol Stop: 10/04/16 10:01 Last Admin: 09/29/16 22:33 Dose: 100 mls/hr Potassium Chloride 20 meq/ (Sodium Chloride) 1,010 mls @ 150 mls/hr IV .Q6H44M [facility] Last Admin: 09/30/16 04:58 Dose: Not Given Insulin Human NPH (Humulin N) 20 units SC HS [facility] Last Admin: 09/29/16 22:20 Dose: 20 units Insulin Human Regular (Humulin R Low) 0 units SC ACHS [facility] PRN Reason: Protocol Last Admin: 09/30/16 08:22 Dose: Not Given Multivitamins/Minerals (Therapeutic-M Tab) 1 tab PO DAILY [facility] Last Admin: 09/29/16 11:37 Dose: 1 tab Pantoprazole Sodium (Protonix Inj) 40 mg IVP DAILY [facility] Last Admin: 09/29/16 11:37 Dose: 40 mg Silver Sulfadiazine (Silvadene 1% 20 Gm) 1 ea TOP Q12H [facility] Last Admin: 09/30/16 05:25 Dose: Not Given Tramadol HCl (Ultram) 25 mg PO Q8H PRN PRN Reason: Pain, moderate (4-7) Last Admin: 09/29/16 22:16 Dose: 25 mg Vitamin A (Vitamin A & D Oint Ud Foilpak) 1 ea TOP BID [facility] Last Admin: 09/29/16 17:39 Dose: 1 ea - Labs Labs: 09/29/16 07:00 09/29/16 07:00 PT 12.2 Seconds (9.9-11.8) H 09/24/16 13:10 INR 1.13 (0.93-1.08) H 09/24/16 13:10 APTT 22.2 Seconds (23.7-30.8) L 09/24/16 13:10 - Constitutional Appears: Non-toxic, No Acute Distress - Head Exam Head Exam: NORMAL INSPECTION - ENT Exam ENT Exam: Mucous Membranes Moist - Neck Exam Neck Exam: absent: Lymphadenopathy, Meningismus - Respiratory Exam Respiratory Exam: Decreased Breath Sounds - Cardiovascular Exam Cardiovascular Exam: +S1, +S2 - GI/Abdominal Exam GI & Abdominal Exam: Soft. absent: Tenderness - Extremities Exam Additional comments: both legs with dry dressings in place Assessment and Plan - Assessment and Plan (Free Text) Plan: Assessment Systemic Inflammatory Response Syndrome with acute encephalopathy (probably toxic-metabolic) S/P ventilator-dependent respiratory failure, probably related to diabetic ketoacidosis, consider severe sepsis from right leg wound with ESBL- producing multidrug resistant Klebsiella and methicillin-sensitive Staph aureus in a patient with venous stasis ulcers, with no evidence of osteomyelitis on MRI of the legs, clinically improving acute pancreatitis, etiology to be determined acute on chronic renal failure, slowly improving history of adrenal cancer lower extremity venous stasis obesity with BMI 39 DM HTN Plan continue Meropenem day 4 and will continue to monitor patient's clinical response; would recommend 7-10 days of therapy HIV test is non-reactive ultrasound of legs does not show DVT; reviewed MRI of the legs which did not show osteomyelitis doppler ultrasound did not show peripheral arterial disease in the lower extremities Discussed with Podiatry Will continue to follow clinically
--- NOTE | 2016-09-30 14:00 | PN ---
DATE: 09/30/2016 Seen and examined at the bedside earlier today. She is out of bed to chair, seems more awake and dale rt. No reports of nausea, vomiting or abdominal pain. She is on clear liquid, thick liquid, which s he is tolerating. No reports of acute overnight events. The patient is refusing to have MRCP done. VITAL SIGNS: Temperature is 97.8, blood pressure 137/73, pulse is 101, respirations 20, 93% on room air. LABORATORIES: WBC is 12.3, hemoglobin is 9.6 and 30.8, platelet is 137. Sodium 142, K 3.6, BU N 28, creatinine is 1.5, total bilirubin is 0.5, AST 73, ALT 37, alkaline phosphatase 80. Her total CK is 1174, this is improved and her lipase slight improvement at 3551. Her glucose is 248. The patient had MRI of the lower extremity, which is reported to be a limited study due to patient mo tion, no evidence of hematoma or fluid collection, diffuse increased signal soft tissue of the left t high, left groin is mild to moderately enlarged lymph nodes, partially imaged mild to moderate sized left knee joint effusion. She had MRI of extremity of the right tibia and fibula without contrast an d this showed no MRI evidence of osteomyelitis at the right tibia and fibula. Skin and subcutaneous stranding suggestive of cellulitis and inflammatory process, foci of skin defects consistent with ulc er, more prominent at the lateral aspect of the distal right leg. PHYSICAL EXAMINATION: HEENT: Sclerae anicteric. NECK: Supple. CARDIAC: S1, S2. LUNG SOUNDS: With decreased breath sounds but good air entry, no rales or wheeze. ABDOMEN: With bowel sounds, softly obese, nontender. No rebound or guarding. EXTREMITIES: She has bilateral lower extremity dressings, changed by podiatry. NEUROLOGIC: Awake, alert, oriented, more pleasant this morning. ASSESSMENT: This is a 61-year-old, obese female with a history of diabetes, chronic kidney disease, hypertension. Came with hyperosmolar non-ketosis diabetes mellitus, which is now resolved. The rebecca ent also with sepsis, may be secondary to her lower extremity ulcerations. The patient was noted to have elevated lipase. CT scan of abdomen was done, which was negative for signs of pancreatitis. He r lipase elevated after start of diet. She was changed to a clear liquid diet. Her amylase yesterda y was 4773. Today, it is down to over 3000. The patient is asymptomatic. We requested a magnetic r esonance cholangiopancreatography for further evaluation and had detailed discussion with the patient yesterday, in which she agreed to have it done this morning. This morning, she is refusing to have this done. Offered medication to help her be comfortable. The patient refused. Explained to patien t this is a less invasive exam at this time. The patient still refusing. The patient is now on a pu mari, nectar thick liquid diet. Monitor her labs. She remains on PPI, is on IV antibiotics, meropen em. She is on deep venous thrombosis prophylaxis, on heparin, on IV fluids with potassium. Discusse d with regarding patient refusing magnetic resonance cholangiopancreatography. As per gagan walker, endocrinology, renal and ID. Seen and discussed with Dr. Morrell. Shavonne TRAN cc: [id number] TT: 09/30/2016 14:00:01 Confirmation # [id number] Dictation # [id number] en
[2016-09-30] MEDS: Insulin Human NPH 1 UNITS/0.01 ML SC SCH (22:40)
[2016-10-01] MEDS: Meropenem 500 MG in Sodium Chloride 0.9% 100 ML IVPB SCH ×3 (03:29→21:46)
[2016-10-01] MEDS: Potassium Chloride 20 MEQ in Sodium Chloride 0.45% 1,000 ML IV SCH ×7 (03:30→21:47)
[2016-10-01] MEDS: Insulin Reg-LOW-Coverage SC SCH ×4 (08:13→23:30)
[2016-10-01] MEDS: Silver Sulfadiazine 1% Cream (20 gm) TOP SCH ×2 (08:18→17:13)
[2016-10-01] MEDS: Insulin Human NPH/Reg 70/30 Vial(3 ml) SC SCH ×2 (08:18→17:12)
--- NOTE | 2016-10-01 08:49 | CP.PCM.PN ---
<Liz Olson - Last Filed: 10/01/16 08:43> Subjective - Date & Time of Evaluation Date of Evaluation: 10/01/16 Time of Evaluation: 08:00 - Subjective Subjective: This is a 61 yo female patient seen at bedside this morning with Dr. Jean for f/u of BL leg ulcerations. Pt seen resting comfortably in bed at time of visit. Denies any acute events overnight. Does complain of some pain to the wounds of her legs today. Denies f/n/v/c/sob. Multipodus boots not on feet at time of visit. Denies any other complaints at this time. Objective - Vital Signs/Intake and Output Vital Signs (last 24 hours): Temp Pulse Resp BP Pulse Ox 98.2 F 94 H 20 112/63 94 L 10/01/16 06:00 10/01/16 06:00 10/01/16 06:00 10/01/16 06:00 10/01/16 06:00 Intake and Output: 10/01/16 10/01/16 06:59 18:59 Intake Total 1000 Output Total 900 Balance 100 - Medications Medications: Current Medications Acetaminophen (Tylenol 325mg Tab) 650 mg PO Q6H PRN PRN Reason: pain moderate and higher Heparin Sodium (Porcine) (Heparin) 5,000 units SC Q8H [facility] PRN Reason: Protocol Last Admin: 10/01/16 06:43 Dose: 5,000 units Meropenem 500 mg/ Sodium (Chloride) 100 mls @ 100 mls/hr IVPB Q12 [facility] PRN Reason: Protocol Stop: 10/04/16 10:01 Last Admin: 10/01/16 03:29 Dose: 100 mls/hr Potassium Chloride 20 meq/ (Sodium Chloride) 1,010 mls @ 150 mls/hr IV .Q6H44M [facility] Last Admin: 10/01/16 08:20 Dose: 150 mls/hr Insulin Human NPH (Humulin N) 20 units SC HS [facility] Last Admin: 09/30/16 22:40 Dose: 20 units Insulin Human Regular (Humulin R Low) 0 units SC ACHS [facility] PRN Reason: Protocol Last Admin: 10/01/16 08:13 Dose: Not Given Multivitamins/Minerals (Therapeutic-M Tab) 1 tab PO DAILY [facility] Last Admin: 09/30/16 10:57 Dose: 1 tab Pantoprazole Sodium (Protonix Inj) 40 mg IVP DAILY [facility] Last Admin: 09/30/16 10:57 Dose: 40 mg Silver Sulfadiazine (Silvadene 1% 20 Gm) 1 ea TOP Q12H [facility] Last Admin: 10/01/16 08:18 Dose: 1 applic Tramadol HCl (Ultram) 25 mg PO Q8H PRN PRN Reason: Pain, moderate (4-7) Last Admin: 09/29/16 22:16 Dose: 25 mg Vitamin A (Vitamin A & D Oint Ud Foilpak) 1 ea TOP BID [facility] Last Admin: 09/30/16 17:11 Dose: 1 ea - Labs Labs: 09/30/16 10:00 09/30/16 10:00 PT 12.2 Seconds (9.9-11.8) H 09/24/16 13:10 INR 1.13 (0.93-1.08) H 09/24/16 13:10 APTT 22.2 Seconds (23.7-30.8) L 09/24/16 13:10 - Constitutional Appears: Non-toxic, No Acute Distress - Extremities Exam Extremities Exam: absent: Calf Tenderness Additional comments: Lower extremity focused exam: Dressings to legs appear c/d/i Vasc: DP 1/4 BL, PT pulses non-palpable BL, CFT < 3 sec to all digits, +3 pitting edema BL, TG runs warm to cool BL Neuro: pedal sensation diminished BL Derm: ulceration noted to anterior aspect of right leg (parada grade 1) measures 7cm x 11cm x 0.2cm measurement, wound bed 90% granular and 10% fibrotic , no probe to bone, slight serous drainage noted, no purulence, no tracking mild malodor, lichenifcation changes noted to left leg with no open wounds noted ortho: tenderness noted on palpation to right anterior leg wound - Neurological Exam Neurological Exam: Alert, Awake, Oriented x3 - Psychiatric Exam Psychiatric exam: Normal Affect, Normal Mood Assessment and Plan - Assessment and Plan (Free Text) Assessment: 61 year old female patient w/ ulceration of right leg secondary to venous statis disease. Plan: -Pt seen and evaluated with Dr. Jean present -Chart labs vitals reviewed: afebrile, WBC increased today (12.3 up from 11.9) -Legs cleansed bl with sterile normal saline, and dressed with xeroform, ABD, kerlix and REILLY bl -Multipodus boots to be worn to feet BL at all times while in bed. -c/w ABX as per ID -Podiatry will continue to follow while she remains in house. <Jaleel Jean - Last Filed: 10/01/16 10:52> Objective - Vital Signs/Intake and Output Vital Signs (last 24 hours): Temp Pulse Resp BP Pulse Ox 98.2 F 94 H 20 112/63 94 L 10/01/16 06:00 10/01/16 06:00 10/01/16 06:00 10/01/16 06:00 10/01/16 06:00 Intake and Output: 10/01/16 10/01/16 06:59 18:59 Intake Total 1000 Output Total 900 Balance 100 - Medications Medications: Current Medications Acetaminophen (Tylenol 325mg Tab) 650 mg PO Q6H PRN PRN Reason: pain moderate and higher Heparin Sodium (Porcine) (Heparin) 5,000 units SC Q8H [facility] PRN Reason: Protocol Last Admin: 10/01/16 06:43 Dose: 5,000 units Meropenem 500 mg/ Sodium (Chloride) 100 mls @ 100 mls/hr IVPB Q12 [facility] PRN Reason: Protocol Stop: 10/04/16 10:01 Last Admin: 10/01/16 10:36 Dose: 100 mls/hr Potassium Chloride 20 meq/ (Sodium Chloride) 1,010 mls @ 150 mls/hr IV .Q6H44M [facility] Last Admin: 10/01/16 10:32 Dose: Not Given Insulin Human NPH (Humulin N) 20 units SC HS [facility] Last Admin: 09/30/16 22:40 Dose: 20 units Insulin Human Regular (Humulin R Low) 0 units SC ACHS [facility] PRN Reason: Protocol Last Admin: 10/01/16 08:13 Dose: Not Given Multivitamins/Minerals (Therapeutic-M Tab) 1 tab PO DAILY [facility] Last Admin: 10/01/16 10:37 Dose: 1 tab Pantoprazole Sodium (Protonix Inj) 40 mg IVP DAILY [facility] Last Admin: 10/01/16 10:36 Dose: 40 mg Silver Sulfadiazine (Silvadene 1% 20 Gm) 1 ea TOP Q12H [facility] Last Admin: 10/01/16 08:18 Dose: 1 applic Tramadol HCl (Ultram) 25 mg PO Q8H PRN PRN Reason: Pain, moderate (4-7) Last Admin: 09/29/16 22:16 Dose: 25 mg Vitamin A (Vitamin A & D Oint Ud Foilpak) 1 ea TOP BID [facility] Last Admin: 10/01/16 10:37 Dose: 1 ea - Labs Labs: 10/01/16 09:10 10/01/16 09:10 PT 12.2 Seconds (9.9-11.8) H 09/24/16 13:10 INR 1.13 (0.93-1.08) H 09/24/16 13:10 APTT 22.2 Seconds (23.7-30.8) L 09/24/16 13:10 Attending/Attestation - Attestation I have personally seen and examined this patient.: Yes I have fully participated in the care of the patient.: Yes I have reviewed all pertinent clinical information, including history, physical exam and plan: Yes
[2016-10-01 09:22] LABS: ADD MANUAL DIFF? NO
[2016-10-01 09:25] LABS: BASO # 0.03 K/mm3 (0.0-2.0); BASO % 0.3 % (0.0-3.0); EOS # 0.1 (0.0-0.7); EOS % 1.2 % (1.5-5.0); GRAN # 7.78 (1.4-6.5); GRAN % 66.7 % (50.0-68.0); HEMATOCRIT 31.2 % (36.0-48.0); LYMPH # 2.9 (1.2-3.4); LYMPH % 25.1 % (22.0-35.0); MEAN CELL VOLUME 87.4 fL (80.0-105.0); MEAN CORPUSCULAR HEMOGLOBIN 26.6 pg (25.0-35.0); MEAN CORPUSCULAR HGB CONC 30.4 g/dl (31.0-37.0); MEAN PLATELET VOLUME 11.4 fl (7.0-11.0); MONO # 0.8 (0.1-0.6); MONO % 6.7 % (1.0-6.0); PLATELET COUNT 137 10^3/uL (120.0-450.0); RED CELL DISTRIBUTION WIDTH 16.8 % (11.5-14.5); WHITE BLOOD COUNT 11.7 10^3/ul (4.5-11.0)
--- NOTE | 2016-10-01 09:33 | PN ---
DATE: 10/01/2016 SUBJECTIVE: The patient seen earlier today in room 260, no fevers and no chills. She is weak and nu rse caring for the patient at night states that the patient does not mobilize well or at all. PHYSICAL EXAMINATION: VITAL SIGNS: Temperature is 98, blood pressure is 112/60, respiratory rate of 20, heart rate of 94. HEENT: Unremarkable. NECK: Supple. LUNGS: Have decreased breath sounds. HEART: Normal S1, S2. ABDOMEN: Soft, nontender. LABORATORY DATA: Reveals a white count of 12,300, hemoglobin of 9 and platelets of 137. Chemistries reveal the BUN of 28, creatinine of 1.5 and lipase is 3551. Urinalysis is noted and HIV is negative . Microbiology from the right leg there is Klebsiella pneumoniae and Staph aureus. The Klebsiella i s ESBL and the Staph aureus sensitive. Review of the orders reveals the patient to be on meropenem. The patient had an MRI of the lower extremities, which showed no evidence of hematoma or fluid collec tion and no evidence of any osteomyelitis. The patient had another MRI of the lower extremity and th is was of the right with no evidence of osteomyelitis. ASSESSMENT AND PLAN: A 61-year-old female with morbid obesity with BMI of almost 40 with sepsis and acute encephalopathy, status post ventilator-dependent respiratory failure, probably related to diabe tic ketoacidosis and severe sepsis with a right leg wound with extended-spectrum beta-lactamase produ cing multidrug resistant Klebsiella and a sensitive Staph aureus and with venous stasis. No evidence of an MRI osteomyelitis. Today is day #5 of meropenem, would complete 7-10 days of meropenem. Case discussed with Dr. Montiel. Will follow closely with you. Pablo Castro MD cc: [phone] TT: 10/01/2016 09:32:25 Confirmation # [id number] Dictation # [id number] laura
[2016-10-01 09:39] LABS: ALB/GLOB RATIO 0.6 (1.1-1.8); ALKALINE PHOSPHATASE 74 U/L (38-133); ALT/SGPT 30 U/L (7-56); AST/SGOT 52 U/L (15-39); BILIRUBIN,TOTAL 0.7 mg/dL (0.2-1.3); BLOOD UREA NITROGEN 23 mg/dL (7-21); CALCIUM 7.4 mg/dL (8.4-10.5); CARBON DIOXIDE 26 mmol/L (21-33); CHLORIDE 110 mmol/L (98-107); GFR AFRICAN-AMERICAN > 60; GLUCOSE,RANDOM 111 mg/dL (70-110); POTASSIUM 3.5 mmol/L (3.6-5.0); SODIUM 140 mmol/L (132-148); TOTAL PROTEIN 5.9 g/dL (5.8-8.3)
[2016-10-01] MEDS ORDERED: Potassium Chloride 20 mEq ER Tab PO STA (09:48)
[2016-10-01] MEDS: Vitamins A & D Oint UD Foilpak TOP SCH ×2 (10:37→17:13)
[2016-10-01] MEDS: Multivitamin With Minerals Tab PO SCH (10:37)
--- NOTE | 2016-10-01 11:36 | CP.PCM.PN ---
<Ruthy Sterling - Last Filed: 10/01/16 11:32> Subjective - Date & Time of Evaluation Date of Evaluation: 10/01/16 Time of Evaluation: 07:10 - Subjective Subjective: Patient seen and examined at bedside. Patient's IV was reinserted overnight. No acute events. Patient was resting in med comfortably, did not refused blood draws or medications. Patient expressed no interest in further testings for her pancreas. Patient prefers to go home instead of TCU. Denies headache, fever, chills, shortness of breath, chest pain, abdominal pain, nausea, or vomiting. Objective - Vital Signs/Intake and Output Vital Signs (last 24 hours): Temp Pulse Resp BP Pulse Ox 98.2 F 94 H 20 112/63 94 L 10/01/16 06:00 10/01/16 06:00 10/01/16 06:00 10/01/16 06:00 10/01/16 06:00 Intake and Output: 10/01/16 10/01/16 06:59 18:59 Intake Total 1000 Output Total 900 Balance 100 - Medications Medications: Current Medications Acetaminophen (Tylenol 325mg Tab) 650 mg PO Q6H PRN PRN Reason: pain moderate and higher Heparin Sodium (Porcine) (Heparin) 5,000 units SC Q8H [facility] PRN Reason: Protocol Last Admin: 10/01/16 06:43 Dose: 5,000 units Meropenem 500 mg/ Sodium (Chloride) 100 mls @ 100 mls/hr IVPB Q12 [facility] PRN Reason: Protocol Stop: 10/04/16 10:01 Last Admin: 10/01/16 10:36 Dose: 100 mls/hr Potassium Chloride 20 meq/ (Sodium Chloride) 1,010 mls @ 150 mls/hr IV .Q6H44M [facility] Last Admin: 10/01/16 10:32 Dose: Not Given Insulin Human NPH (Humulin N) 20 units SC HS [facility] Last Admin: 09/30/16 22:40 Dose: 20 units Insulin Human Regular (Humulin R Low) 0 units SC ACHS [facility] PRN Reason: Protocol Last Admin: 10/01/16 08:13 Dose: Not Given Multivitamins/Minerals (Therapeutic-M Tab) 1 tab PO DAILY [facility] Last Admin: 10/01/16 10:37 Dose: 1 tab Pantoprazole Sodium (Protonix Inj) 40 mg IVP DAILY [facility] Last Admin: 10/01/16 10:36 Dose: 40 mg Silver Sulfadiazine (Silvadene 1% 20 Gm) 1 ea TOP Q12H [facility] Last Admin: 10/01/16 08:18 Dose: 1 applic Tramadol HCl (Ultram) 25 mg PO Q8H PRN PRN Reason: Pain, moderate (4-7) Last Admin: 09/29/16 22:16 Dose: 25 mg Vitamin A (Vitamin A & D Oint Ud Foilpak) 1 ea TOP BID [facility] Last Admin: 10/01/16 10:37 Dose: 1 ea - Labs Labs: 10/01/16 09:10 10/01/16 09:10 PT 12.2 Seconds (9.9-11.8) H 09/24/16 13:10 INR 1.13 (0.93-1.08) H 09/24/16 13:10 APTT 22.2 Seconds (23.7-30.8) L 09/24/16 13:10 - Constitutional Appears: Non-toxic, No Acute Distress - Head Exam Head Exam: ATRAUMATIC, NORMAL INSPECTION - Eye Exam Eye Exam: EOMI, PERRL Pupil Exam: PERRL - ENT Exam ENT Exam: Mucous Membranes Moist - Neck Exam Neck Exam: Normal Inspection - Respiratory Exam Respiratory Exam: Clear to Ausculation Bilateral, NORMAL BREATHING PATTERN. absent: Wheezes, Respiratory Distress - Cardiovascular Exam Cardiovascular Exam: REGULAR RHYTHM, RRR, +S1, +S2. absent: Murmur - GI/Abdominal Exam GI & Abdominal Exam: Soft, Normal Bowel Sounds. absent: Bruit, Guarding, Rigid , Tenderness - Exam Additional comments: Morel in place - Extremities Exam Extremities Exam: Tenderness Additional comments: Bilateral tobin wound dressing clean, dry, intact. No drainage appreciated. - Back Exam Additional comments: left lower back optifoam intact, patch of purple discoloration, non tender. - Neurological Exam Neurological Exam: Alert, Awake, Oriented x3 - Psychiatric Exam Psychiatric exam: Normal Affect, Normal Mood - Skin Skin Exam: Warm Additional comments: Left posterior thigh purple discoloration 5'' x 3" in size, minimal clear liquid drainage appreciated in the center of the blister. No tenderness. Assessment and Plan - Assessment and Plan (Free Text) Assessment: 61 year old female with past medical history of diabetes, CKD ( not on HD), hypertension, and LE venous stasis ulcers admitted for HONK ( resolved), sepsis likely secondary to b/l lower extremity ulcerations, and elevated lipase and CPK HONK resolved - Glycemic control improved 238 today - Follow endocrinology recommendations - Humulin NPH 20units HS - Humulin 70/30 40units ac breakfast, 30units ac dinner - Regular insulin low dose algorithm - Hgb A1c 16.4 - agricultural extension educator referral Sepsis 2/2 bilateral lower extremity ulceration - Afebrile, WBC 12.3 - likely secondary to b/l le ulcerations - Right leg culture grew klebsiella Pneumoniae and Staphylococcus Aureus - No growth on Blood and urine cultures - Continue antibiotics meropenem (day 5) will required 7 to 10 days total - Follow ID's recommendations - Lower extremity MRI showed no evidence osteomyelitis or left thigh hematoma ( see full report) - wound care per podiatry - Silvadene, vitamin A&D - Bilateral lower extremity duplex no evidence of DVT - Lower extremity arterial ultrasound unremarkable Elevated lipase - Lipase 09/30 3551 - Follow GI and nephrology recommendations - CT abdomen showed no signs of pancreatits - Patient agreed to MRCP today, but refused this AM. Will convince patient to go this PM per GI - Continue IVF - Deary thick diet Hypokalemia - Potassium 3.5 - Supplement given Hypernatremia - Follow nephrology recommendations - IVF NS - 140 today, continue to monitor - NS with K 20meq @150ml/hr ORI 2/2 Rhabdomyolysis - Follow nephrology recommendations - NS with K 20meq @150ml/hr - Down trending CPK: 4348 on admission, 910 today - morel in place, output 1300cc r/o Seizure -Neurology recommended discontinued keppra -EEG report pending Prophylactic measures -Protonix IV for GI ppx -Heparin 5000 units SC Q8 for DVT ppx -Continue swallow eval Disposition: HWS vs TCU <Greg Montiel - Last Filed: 10/01/16 12:18> Objective - Vital Signs/Intake and Output Vital Signs (last 24 hours): Temp Pulse Resp BP Pulse Ox 98.2 F 94 H 20 112/63 94 L 10/01/16 06:00 10/01/16 06:00 10/01/16 06:00 10/01/16 06:00 10/01/16 06:00 Intake and Output: 10/01/16 10/01/16 06:59 18:59 Intake Total 1000 Output Total 900 Balance 100 - Medications Medications: Current Medications Acetaminophen (Tylenol 325mg Tab) 650 mg PO Q6H PRN PRN Reason: pain moderate and higher Heparin Sodium (Porcine) (Heparin) 5,000 units SC Q8H [facility] PRN Reason: Protocol Last Admin: 10/01/16 06:43 Dose: 5,000 units Meropenem 500 mg/ Sodium (Chloride) 100 mls @ 100 mls/hr IVPB Q12 [facility] PRN Reason: Protocol Stop: 10/04/16 10:01 Last Admin: 10/01/16 10:36 Dose: 100 mls/hr Potassium Chloride 20 meq/ (Sodium Chloride) 1,010 mls @ 150 mls/hr IV .Q6H44M [facility] Last Admin: 10/01/16 12:06 Dose: 150 mls/hr Insulin Human NPH (Humulin N) 20 units SC HS [facility] Last Admin: 09/30/16 22:40 Dose: 20 units Insulin Human Regular (Humulin R Low) 0 units SC ACHS [facility] PRN Reason: Protocol Last Admin: 10/01/16 12:02 Dose: Not Given Multivitamins/Minerals (Therapeutic-M Tab) 1 tab PO DAILY [facility] Last Admin: 10/01/16 10:37 Dose: 1 tab Pantoprazole Sodium (Protonix Inj) 40 mg IVP DAILY [facility] Last Admin: 10/01/16 10:36 Dose: 40 mg Silver Sulfadiazine (Silvadene 1% 20 Gm) 1 ea TOP Q12H [facility] Last Admin: 10/01/16 08:18 Dose: 1 applic Tramadol HCl (Ultram) 25 mg PO Q8H PRN PRN Reason: Pain, moderate (4-7) Last Admin: 09/29/16 22:16 Dose: 25 mg Vitamin A (Vitamin A & D Oint Ud Foilpak) 1 ea TOP BID [facility] Last Admin: 10/01/16 10:37 Dose: 1 ea - Labs Labs: 10/01/16 09:10 10/01/16 09:10 PT 12.2 Seconds (9.9-11.8) H 09/24/16 13:10 INR 1.13 (0.93-1.08) H 09/24/16 13:10 APTT 22.2 Seconds (23.7-30.8) L 09/24/16 13:10 Attending/Attestation - Attestation I have personally seen and examined this patient.: Yes I have fully participated in the care of the patient.: Yes I have reviewed all pertinent clinical information, including history, physical exam and plan: Yes Notes (Text): 10/01/16 12:08 61 year old female with past medical history of diabetes, hypertension, and CKD who presented with altered mental status which is resolved. She was found to have HONK and started on IV fluids and insulin. Her fingersticks have since improved and she is on humulin N and insulin ss. Hemoglobin A1c is 17.4. Diabetic education and endocrinology evaluations were appreciated. She was also found to have sepsis, likely from LE ulcerations. MRI lower extremities are negative for osteomyelitis. Continue with iv antibiotics as per ID (day 5 out of 7-1 days of meropenem) and wound care as per podiatry. LE dopplers negative for DVT. Arterial dopplers were limited but negative. She had ORI which resolved with iv fluids. Will replete and repeat potassium. She is also being seen by GI with elevated lipase level which has been improving. Continue with diet as tolerated. She denies any abdominal pain. She was ordered for MRCP which she refused. Will follow up with GI recommendations. PT evaluation was appreciated who recommended PAN. However refused and states she wants to go home with services. Will follow up with manager case and PT. Greg Montiel MD Hospitalist.
--- NOTE | 2016-10-01 18:10 | PN ---
DATE: 10/01/2016 SUBJECTIVE: This patient denies any abdominal pain, tolerating the diet. He refused MRCP. PHYSICAL EXAMINATION: VITAL SIGNS: Afebrile, blood pressure is 112/63, O2 saturation 97%. HEENT: Atraumatic, anicteric. NECK: Supple. HEART: S1, S2 heard. LUNGS: Bilateral air entry present. ABDOMEN: Soft. No tenderness. EXTREMITIES: Dressing present. NEUROLOGIC: Alert, oriented. Moves all the extremities. LABORATORY DATA: Hemoglobin 9.5, hematocrit 31.2, platelets 137, WBC is 11.7. BUN 23, creatinine 1.1, potassium 3.5. IMPRESSION: This is a 61-year-old patient with diabetes mellitus, admitted with hyperosmolar nonketotic diabetic coma. The patient is improving from that. The patient also found to have an elevated lipase level and ultrasound showed gallstones, but the CBD was normal. The pancreatic contour on the CT was unremarkable. The patient does have an elevated fluctuating lipase level. Clinically asymptomatic. No tenderness. No abdominal pain now but the real concern is his elevated lipase levels I requested for an MRCP, and the patient was initially agreeable but now he is refusing. The other option is to consider EUS. The patient is also adamantly refusing any of these procedures. Her other comorbidities include sepsis due to the bilateral lower extremity ulcerations. The patient has extended- spectrum beta lactamase and also methicillin-resistant Staphylococcus aureus. Antibiotics as per ID. Doppler negative for DVT. Other comorbidities include diabetes mellitus, poorly controlled, status post hyperosmolar nonketotic coma, acute kidney injury, improving; seizure disorder, improved. I did discuss with Dr. Montiel about the competency who felt that the patient is competent to make decisions at this present time. She understands but she is noncompliant with our recommendations. Thank you very much for allowing us to participate in the care of the patient. Toño Morrell MD cc: [phone] TT: 10/01/2016 18:09:24 Confirmation # [id number] Dictation # [id number] justice WARNER
[2016-10-01] MEDS: Insulin Human NPH 1 UNITS/0.01 ML SC SCH (23:30)
[2016-10-02] MEDS: Potassium Chloride 20 MEQ in Sodium Chloride 0.45% 1,000 ML IV SCH (05:45)
[2016-10-02 07:35] LABS: ADD MANUAL DIFF? NO
[2016-10-02 07:41] LABS: BASO # 0.02 K/mm3 (0.0-2.0); BASO % 0.2 % (0.0-3.0); EOS # 0.1 (0.0-0.7); EOS % 1.2 % (1.5-5.0); GRAN # 7.14 (1.4-6.5); GRAN % 62.4 % (50.0-68.0); HEMATOCRIT 28.4 % (36.0-48.0); LYMPH # 3.4 (1.2-3.4); LYMPH % 30.1 % (22.0-35.0); MEAN CELL VOLUME 87.4 fL (80.0-105.0); MEAN CORPUSCULAR HEMOGLOBIN 27.1 pg (25.0-35.0); MEAN PLATELET VOLUME 11.3 fl (7.0-11.0); MONO # 0.7 (0.1-0.6); MONO % 6.1 % (1.0-6.0); PLATELET COUNT 168 10^3/uL (120.0-450.0); RED CELL DISTRIBUTION WIDTH 16.9 % (11.5-14.5); WHITE BLOOD COUNT 11.4 10^3/ul (4.5-11.0)
[2016-10-02 07:53] LABS: ALB/GLOB RATIO 0.6 (1.1-1.8); ALKALINE PHOSPHATASE 75 U/L (38-133); ALT/SGPT 27 U/L (7-56); AST/SGOT 42 U/L (15-39); BILIRUBIN,TOTAL 0.6 mg/dL (0.2-1.3); BLOOD UREA NITROGEN 17 mg/dL (7-21); CALCIUM 7.5 mg/dL (8.4-10.5); CARBON DIOXIDE 26 mmol/L (21-33); CHLORIDE 108 mmol/L (95-110); GFR AFRICAN-AMERICAN > 60; GLUCOSE,RANDOM 126 mg/dL (70-110); LIPASE 1411 U/L (23-300); POTASSIUM 4.1 mmol/L (3.6-5.0); SODIUM 138 mmol/L (132-148); TOTAL PROTEIN 5.7 g/dL (5.8-8.3)
--- NOTE | 2016-10-02 08:21 | PN ---
DATE: 10/02/2016 ENDO FOLLOWUP NOTE ROOM: 260. This is a 61-year-old female with recent uncontrolled type 2 insulin-requiring diabetes, presenting h ere with hyperosmolar hyperglycemic state and mild ketosis, and received vigorous IV hydration with i ntensive insulin therapy, initially given an insulin drip infusion as noted thereof. She has since t hen improved remarkably both clinically and biochemically as noted thereof. Her hemoglobin A1c was r eported initially as 16.4%, indicative of very poor outpatient metabolic control of her diabetic cond ition. She has been quite uncooperative with lab testing and radiologic procedures as recommended and ordere d thereof. Her oral intake also remains quite variable, and many times needs even feeding assistance . LABORATORY DATA: Her latest chemistries showed a BUN of 23, sodium 140, potassium 3.5, chloride 110, CO2 of 26, glucose 111 and creatinine 1.1. Her glucose levels have ranged from 156-172 and 183 mg/d L. Her creatinine kinase has been down to 910 with normal liver function studies. So at this time, to allow for dose equilibration, we will continue the same basal and bolus insulin r egimen as given with NPH Humulin, NPH given as 20 units subQ at bedtime daily. We will also continue the regular insulin coverage scale as ordered. She has been taken off the premixed insulin regimen for now because of variable oral intake as per the nursing staff. She has also ongoing IV antibiotic s for management of lower extremity cellulitis with underlying neuropathic foot ulcerations. We will obtain serial chemistries and supplement accordingly as needed. We will follow and advise according ly. Michelle Kent MD cc: [id number] TT: 10/02/2016 08:20:27 Confirmation # [id number] Dictation # [id number] laura
--- NOTE | 2016-10-02 10:24 | CP.PCM.PN ---
Subjective - Date & Time of Evaluation Date of Evaluation: 10/02/16 Time of Evaluation: 08:00 - Subjective Subjective: Patient seen and examined at bedside. No acute events reported overnight. She appears comfortable without any complaints. She denies any abdominal pain, nausea or vomiting. She is refusing MRCP, stating she "had too many tests". I did explain to her the reason we were trying to obtain the test included an elevated lipase level. She states she understands but still refused. She states she wants to go home soon. Review of Systems - Review of Systems All systems: reviewed and no additional remarkable complaints except - Constitutional Constitutional: absent: Fever, Chills - EENT Eyes: absent: Blurred Vision Ears: absent: Dizziness - Cardiovascular Cardiovascular: absent: Chest Pain, Dyspnea - Respiratory Respiratory: absent: Cough, Dyspnea - Gastrointestinal Gastrointestinal: absent: Abdominal Pain, Nausea, Vomiting - Genitourinary Genitourinary: absent: Dysuria - Musculoskeletal Additional comments: chronic LE ulcerations - Integumentary Additional comments: chronic leg ulcerations - Neurological Neurological: absent: Dizziness, Tremor - Psychiatric Psychiatric: absent: Anxiety Objective - Vital Signs/Intake and Output Vital Signs (last 24 hours): Temp Pulse Resp BP Pulse Ox 99.0 F 98 H 20 103/62 94 L 10/02/16 06:00 10/02/16 06:00 10/02/16 06:00 10/02/16 06:00 10/02/16 06:00 Intake and Output: 10/02/16 10/02/16 06:59 18:59 Intake Total 2320 Output Total 1050 Balance 1270 - Medications Medications: Current Medications Acetaminophen (Tylenol 325mg Tab) 650 mg PO Q6H PRN PRN Reason: pain moderate and higher Heparin Sodium (Porcine) (Heparin) 5,000 units SC Q8H EMETERIO PRN Reason: Protocol Last Admin: 10/01/16 21:48 Dose: 5,000 units Meropenem 500 mg/ Sodium (Chloride) 100 mls @ 100 mls/hr IVPB Q12 EMETERIO PRN Reason: Protocol Stop: 10/04/16 10:01 Last Admin: 10/01/16 21:46 Dose: 100 mls/hr Potassium Chloride 20 meq/ (Sodium Chloride) 1,010 mls @ 150 mls/hr IV .Q6H44M [facility] Last Admin: 10/02/16 05:45 Dose: 150 mls/hr Insulin Human NPH (Humulin N) 20 units SC HS EMETERIO Last Admin: 10/01/16 23:30 Dose: Not Given Insulin Human Regular (Humulin R Low) 0 units SC ACHS EMETERIO PRN Reason: Protocol Last Admin: 10/01/16 23:30 Dose: Not Given Multivitamins/Minerals (Therapeutic-M Tab) 1 tab PO DAILY EMETERIO Last Admin: 10/01/16 10:37 Dose: 1 tab Pantoprazole Sodium (Protonix Inj) 40 mg IVP DAILY EMETERIO Last Admin: 10/01/16 10:36 Dose: 40 mg Silver Sulfadiazine (Silvadene 1% 20 Gm) 1 ea TOP Q12H EMETERIO Last Admin: 10/01/16 17:13 Dose: 1 applic Tramadol HCl (Ultram) 25 mg PO Q8H PRN PRN Reason: Pain, moderate (4-7) Last Admin: 09/29/16 22:16 Dose: 25 mg Vitamin A (Vitamin A & D Oint Ud Foilpak) 1 ea TOP BID EMETERIO Last Admin: 10/01/16 17:13 Dose: 1 ea - Labs Labs: 10/02/16 07:00 10/02/16 07:00 PT 12.2 Seconds (9.9-11.8) H 09/24/16 13:10 INR 1.13 (0.93-1.08) H 09/24/16 13:10 APTT 22.2 Seconds (23.7-30.8) L 09/24/16 13:10 - Constitutional Appears: Well, No Acute Distress - Head Exam Head Exam: NORMAL INSPECTION - Eye Exam Eye Exam: EOMI - Neck Exam Neck Exam: Full ROM - Respiratory Exam Respiratory Exam: Clear to Ausculation Bilateral. absent: Rales - Cardiovascular Exam Cardiovascular Exam: REGULAR RHYTHM, +S1, +S2 - GI/Abdominal Exam GI & Abdominal Exam: Soft, Normal Bowel Sounds. absent: Tenderness, Organomegaly - Extremities Exam Additional comments: chronic LE ulcerations; +daniel wrapping - Neurological Exam Neurological Exam: Alert, Awake, Oriented x3 - Psychiatric Exam Psychiatric exam: Normal Affect, Normal Mood Assessment and Plan - Assessment and Plan (Free Text) Plan: This is a 61 year old female with past medical history of diabetes, CKD, hypertension and chronic LE venous stasis ulcers who presented with altered mental status (resolved), HONK (resolved), and sepsis secondary to chronic LE ulcerations. Also was found to have elevated lipase and CPK levels with acute on chronic renal failure. 1. LE ulcerations - Continue with iv antibiotics as per ID. She is currently on meropenem (day 6 out of 7-10 days). Wound culture grew Klebsiella Pneumoniae and Staphylococcus Aureus. Continue with wound care as per podiatry. MRI was negative for osteomyelitis. LE dopplers were negative for DVT. Arterial dopplers were limited but negative. 2. Uncontrolled diabetes - S/P HONK. Continue with humulin N and insulin ss. Hemoglobin A1c was 17.4. Diabetic education and endocrinology evaluations were appreciated. 3. Elevated lipase - Levels are improving. CT abd/pelvis showed no signs of pancreatitis. She denies any abdominal pain and is tolerating diet. GI is following the patient. He recommended MRCP which patient is refusing as above. 4. ORI/CKD - This has improved with iv fluids. 5. AMS - Resolved. I did speak with Dr. Garner yesterday who will review her EEG which was done last week. Continue with protonix for GI prophylaxis and heparin for DVT prophylaxis. PT had recommended PAN. However patient is refusing and wants to go home with services instead. Will follow up with case management specialist and PT.
--- NOTE | 2016-10-02 11:18 | PN ---
DATE: 10/02/2016 The patient is in bed in no acute distress. PHYSICAL EXAMINATION: VITAL SIGNS: Temperature is 99, blood pressure is 103/60, respiratory rate of 20. HEENT: Unremarkable. NECK: Supple. LUNGS: Have decreased breath sounds. HEART: Normal S1, S2. ABDOMEN: Soft, nontender. LABORATORY DATA: Reveals the patient's white count is 11,400, hemoglobin of 8, BUN of 17, creatinine of 1.1. Lipase is 1411, which is greatly improved. Urinalysis is noted. HIV is negative. Microbi ology reveals the right leg has Klebsiella pneumoniae species, pneumonia and Staph aureus. The Klebs iella is ESBL. However, the Staphylococcus aureus is sensitive Staph aureus. Review of the orders r eveals the patient to be on meropenem. ASSESSMENT AND PLAN: This is a 61-year-old female with morbid obesity, body mass index of almost 40 with sepsis, acute encephalopathy, status post ventilatory dependent respiratory failure, probably re lated to diabetic ketoacidosis and severe sepsis of her right leg and cellulitis with extended-spectr um beta-lactamase Klebsiella and sensitive Staphylococcus and venous stasis with negative MRI for ost eomyelitis. Today is day #6 of meropenem. Would complete 7-10 days of meropenem, and patient's case discussed with Dr. Montiel for possible discharge early this week. Pablo Castro MD cc: [phone] TT: 10/02/2016 11:17:27 Confirmation # [id number] Dictation # [id number] mn
[2016-10-02] MEDS: Insulin Reg-LOW-Coverage SC SCH ×4 (11:25→22:08)
[2016-10-02] MEDS: Insulin Human NPH/Reg 70/30 Vial(3 ml) SC SCH ×2 (11:31→19:41)
[2016-10-02] MEDS: Meropenem 500 MG in Sodium Chloride 0.9% 100 ML IVPB SCH ×2 (11:32→22:37)
[2016-10-02] MEDS: Multivitamin With Minerals Tab PO SCH (11:34)
[2016-10-02] MEDS: Vitamins A & D Oint UD Foilpak TOP SCH ×2 (11:34→17:53)
[2016-10-02] MEDS: Silver Sulfadiazine 1% Cream (20 gm) TOP SCH ×2 (12:28→17:54)
--- NOTE | 2016-10-02 13:50 | PN ---
DATE: 10/02/2016 ROOM: 260. This is a 61-year-old female with recent uncontrolled type 2 insulin-requiring diabetes, presenting h ere with rhabdomyolysis and supervening hyperosmolar hyperglycemic state and dehydration and has sinc e then improved clinically and metabolically as noted thereof. Her latest chemistry showed a BUN of 17, sodium 138, potassium 4.1, chloride 108, CO2 of 26, glucose 126 and creatinine 1.1. Her glucose levels have ranged from 156-172 mg/dL. So at this time, we will continue the same basal and bolus in sulin regimen to allow for dose equilibration and keep her on the NPH given as 20 units subcutaneous at bedtime daily and the Novolin 70/30 given as a premixed insulin regimen to cover her mealtime insu katie requirements at a dose of 40 of Novolin instead of Humulin 70/30 given as 40 units a.c. breakfast and 30 units a.c. dinner as given. We will titrate incrementally as indicated to optimize metabolic control. We will also continue the low-dose correction scale using regular insulin as given. We wi ll titrate incrementally as indicated to optimize metabolic control. We will follow. Michelle Kent MD cc: [id number] TT: 10/02/2016 13:48:59 Confirmation # [id number] Dictation # [id number] raciel
[2016-10-02 17:19] VITALS: RESP 20
[2016-10-02] MEDS: Insulin Human NPH 1 UNITS/0.01 ML SC SCH (22:06)
[2016-10-03] MEDS: Silver Sulfadiazine 1% Cream (20 gm) TOP SCH ×2 (05:30→17:41)
[2016-10-03 06:51] LABS: BLOOD UREA NITROGEN 16 mg/dL (7-21); CALCIUM 7.6 mg/dL (8.4-10.5); CARBON DIOXIDE 24 mmol/L (21-33); CHLORIDE 108 mmol/L (98-107); GFR AFRICAN-AMERICAN > 60; GLUCOSE,RANDOM 157 mg/dL (70-110); POTASSIUM 3.9 mmol/L (3.6-5.0); SODIUM 138 mmol/L (132-148)
[2016-10-03 07:09] LABS: HEMATOCRIT 27.8 % (36.0-48.0); MEAN CELL VOLUME 87.7 fL (80.0-105.0); MEAN CORPUSCULAR HEMOGLOBIN 27.1 pg (25.0-35.0); MEAN CORPUSCULAR HGB CONC 30.9 g/dl (31.0-37.0); MEAN PLATELET VOLUME 11.1 fl (7.0-11.0); WHITE BLOOD COUNT 10.6 10^3/ul (4.5-11.0)
--- NOTE | 2016-10-03 07:52 | PN ---
DATE: 10/02/2016 ADDENDUM This patient was seen and evaluated today. Discussed with nursing staff. Tolerating the diet. No complaints of any abdominal pain. Refused adamantly MRCP and also for EUS examination. PHYSICAL EXAMINATION: VITAL SIGNS: Temperature is 99.3, blood pressure 115/73, pulse 98, respirations 20. HEENT: Atraumatic, anicteric. NECK: Supple. HEART: S1, S2 heard. LUNGS: Bilateral air entry present. ABDOMEN: Soft. No tenderness. EXTREMITIES: Dressing covering the wound present. LABORATORY DATA: WBCs 11.5, hemoglobin 8.8, hematocrit 28.4, platelets 168. Chemistry showed lipase level is decreased significantly. Lipase 1411, has decreased. IMPRESSION: This is a 61-year-old patient admitted status post hyperosmolar nonketotic coma, sepsis, lower extremities ulcerations with extended-spectrum beta-lactamase and also methicillin-resistant Staphylococcus aureus infection. The patient is being followed by ID, on IV antibiotics. The patient did have an elevated lipase level at the time of admission, which then significantly increased, now showing downward trend. Ultrasound showed only gallbladder stones, but bile duct normal. CT, pancreatic contour was normal. Discussed with the patient multiple times regarding the further evaluation including magnetic resonance cholangiopancreatography. The patient adamantly refused. At the present time, advice is to follow up clinically. PLAN: To continue the present medication and the present treatment. Concern that the patient may have been on Januvia before. Continue to follow up the LFTs, low fat diet and if patient agrees to consider MRCP. Thank you very much for allowing us to participate in the care of the patient. Toño Morrell MD cc: [phone] TT: 10/03/2016 07:51:32 Confirmation # [id number] Dictation # [id number] en MTDD
--- NOTE | 2016-10-03 08:10 | PN ---
DATE: 09/30/2016 ADDENDUM This is an addendum to the GI progress report dictated by Shavonne Self NP. The patient was seen and evaluated earlier. The patient refused MRI again. on liquid diet, feels her abdomen is better now. Review of the lab showed LFTs is still elevated to 3551, but decreased compared to yesterday. The previous CT and sonogram did not reveal any pancreatitis imaging vaughan. The reasonable thing is to continue the liquid diet and I tried to convince the patient again about the MRI, she was adamantly refusing. The patient was in the past taking Januvia that also partially could contribute to the acute pancreatitis. The patient did have an ultrasound that showed gallstones. CBD was normal. The patient is presently on isolation because of the ESBL and MRSA wound infection. RECOMMENDATION: Continue the liquid diet. Followup of the enzymes. We would consider endoscopic ultrasound based on the clinical course and consider MRCP if she changes her mind. Thank you very much for allowing us to participate in the care of the patient. Toño Morrell MD cc: [phone] TT: 10/01/2016 03:17:15 Confirmation # [id number] Dictation # [id number] in 10/01/2016 04:25:06 ALANA
[2016-10-03] MEDS: Insulin Reg-LOW-Coverage SC SCH ×4 (08:30→17:30)
[2016-10-03] MEDS: Insulin Human NPH/Reg 70/30 Vial(3 ml) SC SCH ×2 (08:49→17:30)
[2016-10-03] MEDS: Meropenem 500 MG in Sodium Chloride 0.9% 100 ML IVPB SCH (11:09)
[2016-10-03] MEDS: Multivitamin With Minerals Tab PO SCH (11:09)
[2016-10-03] MEDS: Vitamins A & D Oint UD Foilpak TOP SCH ×2 (11:09→18:10)
--- NOTE | 2016-10-03 15:21 | PN ---
DATE: 10/03/2016 ROOM: 360 This is a 61-year-old female with recent uncontrolled type 2 insulin-requiring diabetes, now being fo llowed closely for metabolic management. Her glycemic levels are fluctuating, but much improved at this time and the latest glucose levels hav e ranged from 126-156 mg/dL. Her latest chemistries showed a BUN of 16, sodium 138, potassium 3.9, c hloride 108, CO2 24, glucose 157 and creatinine 1.1. So at this time, we will continue the same premixed insulin regimen with Humulin 70/30 given as 40 un its before breakfast and 30 units before dinner as ordered. We will continue the basal insulin with NPH given as 20 units subQ at bedtime daily as ordered. We will titrate incrementally as indicated t o optimize metabolic control. We will follow. Michelle Kent MD cc: [id number] TT: 10/03/2016 15:21:00 Confirmation # [id number] Dictation # [id number] en
--- NOTE | 2016-10-03 15:22 | CP.PCM.DIS ---
<Ruthy Sterling - Last Filed: 10/03/16 19:03> Provider - Provider Date of Admission: 09/24/16 13:56 Attending physician: Sybil Jacobson MD Primary care physician: NO PRIMARY CARE PROVIDER Consults: ID: Dr. Marcos Nephro: Dr. Pizano Endo: Dr. Kent Podiatry: Dr. Wan, Dr. Hill GI: Dr. Morrell Neuro: Dr. Carmelo Garner Time Spent in preparation of Discharge (in minutes): 40 Diagnosis - Discharge Diagnosis (1) Altered mental status Status: Resolved (2) Hyperosmolar nonketotic coma in diabetes Status: Resolved (3) Rhabdomyolysis Status: Resolved (4) Sepsis Status: Resolved (5) Lower extremity ulceration Status: Chronic (6) Elevated lipase Status: Resolved (7) Hypernatremia Status: Resolved (8) Hypokalemia Status: Resolved (9) Diabetes Status: Acute (10) Hypertension Status: Chronic (11) Obesities, morbid Status: Chronic Hospital Course - Lab Results Lab Results: Micro Results 10/01/16 20:00 Naris MRSA Culture (Admit) - Final MRSA NOT DETECTED 09/24/16 20:45 Leg - Right Gram Stain - Final 09/24/16 20:45 Leg - Right Wound Culture - Final Klebsiella Pneumoniae Ssp Pneu Staphylococcus Aureus 09/24/16 14:06 Urine,[place] Urine Culture - Final No Growth (<1,000 CFU/ML) Most Recent Lab Values WBC 10.6 10^3/ul (4.5-11.0) 10/03/16 06:30 RBC 3.17 10^6/uL (3.5-6.1) L 10/03/16 06:30 Hgb 8.6 gm/dL (12.0-16.0) L 10/03/16 06:30 Hct 27.8 % (36.0-48.0) L 10/03/16 06:30 MCV 87.7 fL (80.0-105.0) 10/03/16 06:30 MCH 27.1 pg (25.0-35.0) 10/03/16 06:30 MCHC 30.9 g/dl (31.0-37.0) L 10/03/16 06:30 RDW 17.0 % (11.5-14.5) H 10/03/16 06:30 Plt Count 197 10^3/uL (120.0-450.0) 10/03/16 06:30 MPV 11.1 fl (7.0-11.0) H 10/03/16 06:30 Gran % 62.4 % (50.0-68.0) 10/02/16 07:00 Lymph % (Auto) 30.1 % (22.0-35.0) 10/02/16 07:00 [place] % (Auto) 6.1 % (1.0-6.0) H 10/02/16 07:00 Eos % (Auto) 1.2 % (1.5-5.0) L 10/02/16 07:00 Baso % (Auto) 0.2 % (0.0-3.0) 10/02/16 07:00 Gran # 7.14 (1.4-6.5) H 10/02/16 07:00 Lymph # 3.4 (1.2-3.4) 10/02/16 07:00 [place] # 0.7 (0.1-0.6) H 10/02/16 07:00 Eos # 0.1 (0.0-0.7) 10/02/16 07:00 Baso # 0.02 K/mm3 (0.0-2.0) 10/02/16 07:00 Neutrophils % (Manual) 87 % (50.0-70.0) H 09/28/16 10:05 Band Neutrophils % 8 % (0-2) H 09/27/16 05:00 Lymphocytes % (Manual) 11 % (22.0-35.0) L 09/28/16 10:05 Atypical Lymphs % 1 % (0.0-0.0) H 09/27/16 05:00 Monocytes % (Manual) 1 % (1.0-6.0) 09/28/16 10:05 Basophils % (Manual) 1 % (0.0-1.0) 09/28/16 10:05 Myelocytes % 1 % 09/27/16 05:00 Nucleated RBC % 1 % 09/27/16 05:00 Platelet Evaluation Sl dec (NORMAL) 09/27/16 05:00 Large Platelets Present 09/28/16 10:05 Hypochromasia 1+ 09/27/16 05:00 Anisocytosis (manual) 1+ 09/27/16 05:00 Microcytosis (manual) 1+ 09/27/16 05:00 Tear Drop Cells Slight 09/27/16 05:00 Ovalocytes Slight 09/27/16 05:00 ESR 59 mm/hr (0.0-20.0) H 09/28/16 10:05 PT 12.2 Seconds (9.9-11.8) H 09/24/16 13:10 INR 1.13 (0.93-1.08) H 09/24/16 13:10 APTT 22.2 Seconds (23.7-30.8) L 09/24/16 13:10 pCO2 37 mm/Hg (35-45) 09/26/16 10:45 pO2 126.0 mm/Hg (80-100) H 09/26/16 10:45 HCO3 18.2 mmol/L (21-28) L 09/26/16 10:45 ABG pH 7.30 (7.35-7.45) L 09/26/16 10:45 ABG Total CO2 19.3 mmol.L (22-28) L 09/26/16 10:45 ABG O2 Saturation 98.7 % (95-98) H 09/26/16 10:45 ABG O2 Content 14.5 ML/dl (15-23) L 09/26/16 10:45 ABG Base Excess -7.6 mmol/L (-2.0-3.0) L 09/26/16 10:45 ABG Hemoglobin 10.5 g/dL (11.7-17.4) L 09/26/16 10:45 ABG Carboxyhemoglobin 1.5 % (0.5-1.5) 09/26/16 10:45 POC ABG HHb (Measured) 1.3 % (0-5) 09/26/16 10:45 ABG Methemoglobin 0.9 % (0.0-3.0) 09/26/16 10:45 ABG O2 Capacity 14.7 mL/dl (16-24) L 09/26/16 10:45 ABG Potassium 3.0 mmol/L (3.6-5.2) L 09/25/16 12:20 VBG pH 7.27 (7.32-7.43) L 09/25/16 16:50 VBG pCO2 38.0 (40-60) L 09/25/16 16:50 VBG HCO3 17.4 mmol/l (21-28) L 09/25/16 16:50 VBG Total CO2 18.6 mmol.L (22-28) L 09/25/16 16:50 VBG O2 Sat (Calc) 98.8 % (40-65) H 09/25/16 16:50 VBG Base Excess -8.8 mmol/L (0.0-2.0) L 09/25/16 16:50 VBG Hgb O2 Saturation 83.3 % (95.0-98.0) L 09/24/16 15:30 VBG Potassium 4.1 mmol/L (3.6-5.2) 09/25/16 16:50 Hemoglobin 11.5 g/dL (11.7-17.4) L 09/24/16 15:30 Hgb O2 Saturation 96.3 % (95.0-98.0) 09/26/16 10:45 Sodium 147.0 mmol/L (132-148) 09/25/16 16:50 Chloride 123.0 mmol/L (98-107) H 09/25/16 16:50 Glucose 254 mg/dl (65-105) H 09/25/16 16:50 Lactate 2.0 mmol/L (0.7-2.1) 09/25/16 16:50 Mechanical Rate 16 09/24/16 17:00 FiO2 32.0 % 09/26/16 10:45 Tidal Volume 400 09/24/16 17:00 PEEP 5 09/25/16 12:20 Sodium 138 mmol/L (132-148) 10/03/16 06:30 Potassium 3.9 mmol/L (3.6-5.0) 10/03/16 06:30 Chloride 108 mmol/L (98-107) H 10/03/16 06:30 Carbon Dioxide 24 mmol/L (21-33) 10/03/16 06:30 Anion Gap 10 (10-20) 10/03/16 06:30 BUN 16 mg/dL (7-21) 10/03/16 06:30 Creatinine 1.1 mg/dL (0.5-1.4) 10/03/16 06:30 Est GFR ( Amer) > 60 10/03/16 06:30 Est GFR (Non-Af Amer) 50 10/03/16 06:30 POC Glucose (mg/dL) 156 mg/dL (65-110) H 10/01/16 11:52 Random Glucose 157 mg/dL (70-110) H 10/03/16 06:30 Hemoglobin A1c 17.4 % (4.2-6.5) H 09/28/16 10:00 Serum Osmolality 401 mosm/kg (271-296) H 09/24/16 16:00 Calcium 7.6 mg/dL (8.4-10.5) L 10/03/16 06:30 Phosphorus 2.7 mg/dL (2.5-4.5) 09/27/16 07:00 Magnesium 1.7 mg/dL (1.7-2.2) 09/29/16 07:00 Total Bilirubin 0.6 mg/dL (0.2-1.3) 10/02/16 07:00 Direct Bilirubin 0.9 mg/dL (0.0-0.4) H 09/24/16 13:10 AST 42 U/L (15-39) H 10/02/16 07:00 ALT 27 U/L (7-56) 10/02/16 07:00 Alkaline Phosphatase 75 U/L (38-133) 10/02/16 07:00 Ammonia < 9 umol/L (9-33) L 09/24/16 15:30 Lactate Dehydrogenase 738 U/L (333-699) H 09/24/16 13:10 Total Creatine Kinase 910 U/L (35-230) H 10/01/16 09:10 CK-MB (CK-2) 0.9 ng/mL (0.0-3.6) 10/01/16 09:10 CK-MB (CK-2) % 0.2 % (2.5-3.0) L 09/27/16 05:00 Troponin I 0.05 ng/mL 09/24/16 15:30 C-React Prot High Sens > 15.00 mg/L (1.00-3.00) H 09/24/16 15:30 NT-Pro-B Natriuret Pep 1840 pg/mL (0-450) H 09/24/16 13:10 Total Protein 5.7 g/dL (5.8-8.3) L 10/02/16 07:00 Albumin 2.2 g/dL (3.0-4.8) L 10/02/16 07:00 Globulin 3.5 gm/dL 10/02/16 07:00 Albumin/Globulin Ratio 0.6 (1.1-1.8) L 10/02/16 07:00 Amylase 260 U/L (35-125) H 09/29/16 07:00 Lipase 1411 U/L (23-300) H 10/02/16 07:00 Vitamin C 0.4 mg/dL (0.2-1.5) 09/28/16 10:00 Procalcitonin 3.23 NG/ML (0.19-0.49) H 09/26/16 07:30 Arterial Blood Potassium 3.0 mmol/L (3.6-5.2) L 09/25/16 12:20 Venous Blood Potassium 4.1 mmol/L (3.6-5.2) 09/25/16 16:50 Urine Color Yellow (YELLOW) 09/24/16 14:06 Urine Appearance Clear (CLEAR) 09/24/16 14:06 Urine pH 6.0 (4.7-8.0) 09/24/16 14:06 Ur Specific [place] 1.015 (1.005-1.035) 09/24/16 14:06 Urine Protein Trace mg/dL (<30 mg/dL) H 09/24/16 14:06 Urine Glucose (UA) >=1000 mg/dL (NEGATIVE) 09/24/16 14:06 Urine Ketones Negative mg/dL (NEGATIVE) 09/24/16 14:06 Urine Blood Small (NEGATIVE) H 09/24/16 14:06 Urine Nitrate Negative (NEGATIVE) 09/24/16 14:06 Urine Bilirubin Negative (NEGATIVE) 09/24/16 14:06 Urine Urobilinogen 0.2 E.U./dL (<1 E.U./dL) 09/24/16 14:06 Ur Leukocyte Esterase Negative Jose/uL (NEGATIVE) 09/24/16 14:06 Urine RBC 0 - 2 /hpf (0-2) 09/24/16 14:06 Urine WBC 0 - 2 /hpf (0-6) 09/24/16 14:06 Ur Epithelial Cells 10 - 12 /hpf (0-5) 09/24/16 14:06 Urine Bacteria Few (NEG) 09/24/16 14:06 Urine Eosinophils Neg 09/24/16 18:00 Urine Osmolality 443 mosm/kg (50-645) 09/24/16 18:00 Ur Random Sodium 23 meq/L 09/24/16 18:00 Ur Random Potassium 31.6 meq/L 09/24/16 18:00 Urine Opiates Screen Negative (NEGATIVE) 09/24/16 14:06 Urine Methadone Screen Negative (NEGATIVE) 09/24/16 14:06 Ur Barbiturates Screen Negative (NEGATIVE) 09/24/16 14:06 Ur Phencyclidine Scrn Negative (NEGATIVE) 09/24/16 14:06 Ur Amphetamines Screen Negative (NEGATIVE) 09/24/16 14:06 U Benzodiazepines Scrn Negative (NEGATIVE) 09/24/16 14:06 U Oth Cocaine Metabols Negative (NEGATIVE) 09/24/16 14:06 U Cannabinoids Screen Negative (NEGATIVE) 09/24/16 14:06 Alcohol, Quantitative < 10 mg/dL (0-10) 09/24/16 13:10 HIV 1&2 Ag/Ab, 4th Gen Nonreactive (Nonreactive) 09/25/16 16:50 - Hospital Course Hospital Course: 61 year old female brought in by ambulance, with past medical history of diabetes, CKD (not on HD), hypertension, and LE venous stasis ulcers , who presents to the emergency room unresponsive prior to arrival. According to family, 3 days ago, the patient communicated to family via phone that she did not feel well and her leg hurts which required her to take Advils. Since then, the family have not heard from patient. The door was broken down and patient was found unresponsive sitting up on her couch. EMS placed nasal trumpet in patient and found her finger stick to be greater than 600. EMS started IO line on patient left humorous and IV fluids initiated. In the ED, Patient was still unresponsive. BP was as low as 59/32 with glucose of 1399. Patient was eventually intubated given for airway protection, using Glidescope; R femoral line placed for access. Vomitous material present in posterior oropharynx on intubation. Aggressive hydration was started with much improvement and stabilization of blood pressure. Keppra was also given in the ED. Patient was also found to have temperature of 100.4 with pulse at 160 bpm and respiration rate of 10 breath per minute. One dose of vanco and one dose cefepime were given. VBG pH was 7.06. K was 6.4, treated with insulin, and calcium. She had an anion gap 27, CK 4348, trop 0.06 and Lipase 1654. 09/25: DKA improved, creatinine came down to 5.5, hyperkalemia resolved. Patient was hypernatremic, IVF changed to D5W. Patient was extubated. Managed by ICU. Nephrology, neurology and endocrinology were consulted. 09/26: Endocrine started patient on levemir, neurology discontinued keppra and EEG report pending. Patient is now awake, alert and orientated to person time and place but still lethargic. 09/27: transferred to telemetry, dopper negative for DVT. ID changed antibiotic to meropenem, podiatry dressing changed, negative DVT 09/29: WBC and ESR elevated, ID wants to r/o osteo. Left thigh bruise mri to r/o hematoma. Insulin stablized; on NS and K Rod; MRI abdomen; extremity US negative for occlusion; Left thigh MRI- no hematoma, left groin moderately enlarged lymph nodes, moderate sized left knee joint effusion, Right MRI- no osteomyolitis, skin and subq stranding suggestive of cellulitis and inflammatory process, skin defects consistent with ulcer. 09/30: patient refused MRCP in the AM and PM. Lipase trending up, r/o pancreatitis secondary to past januvia use. f/u PT eval. possible MRCP, Day 10/21 for ABX 10/01: refused further workup for GI, repleted guy Bailey day 10/02: Refusing workup. Patient glucose stable. 10/03: patient once again refused MRCP by GI. Finished 7 day course of meropenem. Vitals and labs stable with improving lipase. Physical therapy evaluated patient and recommended PAN. clinic manager educated patient on insulin use and provided patient home glucometer and testing strips The discharge plan and follow ups were extensively discussed with the patient who verbalized with complete understanding. At this time, after discussion of all issues, the patient was deemed medically fit for discharge. - Date & Time of H&P Date of H&P: 09/24/16 Time of H&P: 14:02 Discharge Exam - Head Exam Head Exam: NORMAL INSPECTION - Eye Exam Eye Exam: EOMI, Normal appearance - ENT Exam ENT Exam: Mucous Membranes Moist - Neck Exam Neck exam: Normal Inspection - Respiratory Exam Respiratory Exam: Clear to PA & Lateral, NORMAL BREATHING PATTERN. absent: Wheezes, Respiratory Distress - Cardiovascular Exam Cardiovascular Exam: REGULAR RHYTHM, +S1, +S2 - GI/Abdominal Exam GI & Abdominal Exam: Normal Bowel Sounds, Soft. absent: Tenderness - Extremities Exam Additional comments: Chronic bilateral lower extremity ulcerations - Neurological Exam Neurological exam: Alert, Oriented x3 - Psychiatric Exam Psychiatric exam: Normal Affect, Normal Mood Discharge Plan - Discharge Medications Prescriptions: Insulin Human (NPH)/Regular [Novolin 70/30 (70/30 units/ml) 10 ml] 30 units SC ACD #1 vial Insulin Human (NPH)/Regular [Novolin 70/30 (70/30 units/ml) 10 ml] 40 units SC ACB #1 vial - Follow Up Plan Condition: FAIR Disposition: TRANSF TO [facility] Patient education suggested?: Yes Instructions: Diabetes Mellitus Type 2 in Adults (DC), Sepsis (ED) Additional Instructions: -Patient was instructed to follow at [facility], podiatry and GI after discharged from the hospital -Patient will continue all current medications at [facility] -Patient will be discharged to [facility] subacute rehab -Diabetic education and LE wound care is strongly advised -Go to the nearest ED if symptoms return or worse Referrals: PCP,NO [Primary Care Provider] - Follow up with primary <Sybil Jacobson MD - Last Filed: 10/04/16 12:26> Provider - Provider Date of Admission: 09/24/16 13:56 Attending physician: Sybil Jacobson MD Primary care physician: NO PRIMARY CARE PROVIDER Hospital Course - Lab Results Lab Results: Micro Results 10/01/16 20:00 Naris MRSA Culture (Admit) - Final MRSA NOT DETECTED 09/24/16 20:45 Leg - Right Gram Stain - Final 09/24/16 20:45 Leg - Right Wound Culture - Final Klebsiella Pneumoniae Ssp Pneu Staphylococcus Aureus 09/24/16 14:06 Urine,[place] Urine Culture - Final No Growth (<1,000 CFU/ML) Most Recent Lab Values WBC 10.6 10^3/ul (4.5-11.0) 10/03/16 06:30 RBC 3.17 10^6/uL (3.5-6.1) L 10/03/16 06:30 Hgb 8.6 gm/dL (12.0-16.0) L 10/03/16 06:30 Hct 27.8 % (36.0-48.0) L 10/03/16 06:30 MCV 87.7 fL (80.0-105.0) 10/03/16 06:30 MCH 27.1 pg (25.0-35.0) 10/03/16 06:30 MCHC 30.9 g/dl (31.0-37.0) L 10/03/16 06:30 RDW 17.0 % (11.5-14.5) H 10/03/16 06:30 Plt Count 197 10^3/uL (120.0-450.0) 10/03/16 06:30 MPV 11.1 fl (7.0-11.0) H 10/03/16 06:30 Gran % 62.4 % (50.0-68.0) 10/02/16 07:00 Lymph % (Auto) 30.1 % (22.0-35.0) 10/02/16 07:00 [place] % (Auto) 6.1 % (1.0-6.0) H 10/02/16 07:00 Eos % (Auto) 1.2 % (1.5-5.0) L 10/02/16 07:00 Baso % (Auto) 0.2 % (0.0-3.0) 10/02/16 07:00 Gran # 7.14 (1.4-6.5) H 10/02/16 07:00 Lymph # 3.4 (1.2-3.4) 10/02/16 07:00 [place] # 0.7 (0.1-0.6) H 10/02/16 07:00 Eos # 0.1 (0.0-0.7) 10/02/16 07:00 Baso # 0.02 K/mm3 (0.0-2.0) 10/02/16 07:00 Neutrophils % (Manual) 87 % (50.0-70.0) H 09/28/16 10:05 Band Neutrophils % 8 % (0-2) H 09/27/16 05:00 Lymphocytes % (Manual) 11 % (22.0-35.0) L 09/28/16 10:05 Atypical Lymphs % 1 % (0.0-0.0) H 09/27/16 05:00 Monocytes % (Manual) 1 % (1.0-6.0) 09/28/16 10:05 Basophils % (Manual) 1 % (0.0-1.0) 09/28/16 10:05 Myelocytes % 1 % 09/27/16 05:00 Nucleated RBC % 1 % 09/27/16 05:00 Platelet Evaluation Sl dec (NORMAL) 09/27/16 05:00 Large Platelets Present 09/28/16 10:05 Hypochromasia 1+ 09/27/16 05:00 Anisocytosis (manual) 1+ 09/27/16 05:00 Microcytosis (manual) 1+ 09/27/16 05:00 Tear Drop Cells Slight 09/27/16 05:00 Ovalocytes Slight 09/27/16 05:00 ESR 59 mm/hr (0.0-20.0) H 09/28/16 10:05 PT 12.2 Seconds (9.9-11.8) H 09/24/16 13:10 INR 1.13 (0.93-1.08) H 09/24/16 13:10 APTT 22.2 Seconds (23.7-30.8) L 09/24/16 13:10 pCO2 37 mm/Hg (35-45) 09/26/16 10:45 pO2 126.0 mm/Hg (80-100) H 09/26/16 10:45 HCO3 18.2 mmol/L (21-28) L 09/26/16 10:45 ABG pH 7.30 (7.35-7.45) L 09/26/16 10:45 ABG Total CO2 19.3 mmol.L (22-28) L 09/26/16 10:45 ABG O2 Saturation 98.7 % (95-98) H 09/26/16 10:45 ABG O2 Content 14.5 ML/dl (15-23) L 09/26/16 10:45 ABG Base Excess -7.6 mmol/L (-2.0-3.0) L 09/26/16 10:45 ABG Hemoglobin 10.5 g/dL (11.7-17.4) L 09/26/16 10:45 ABG Carboxyhemoglobin 1.5 % (0.5-1.5) 09/26/16 10:45 POC ABG HHb (Measured) 1.3 % (0-5) 09/26/16 10:45 ABG Methemoglobin 0.9 % (0.0-3.0) 09/26/16 10:45 ABG O2 Capacity 14.7 mL/dl (16-24) L 09/26/16 10:45 ABG Potassium 3.0 mmol/L (3.6-5.2) L 09/25/16 12:20 VBG pH 7.27 (7.32-7.43) L 09/25/16 16:50 VBG pCO2 38.0 (40-60) L 09/25/16 16:50 VBG HCO3 17.4 mmol/l (21-28) L 09/25/16 16:50 VBG Total CO2 18.6 mmol.L (22-28) L 09/25/16 16:50 VBG O2 Sat (Calc) 98.8 % (40-65) H 09/25/16 16:50 VBG Base Excess -8.8 mmol/L (0.0-2.0) L 09/25/16 16:50 VBG Hgb O2 Saturation 83.3 % (95.0-98.0) L 09/24/16 15:30 VBG Potassium 4.1 mmol/L (3.6-5.2) 09/25/16 16:50 Hemoglobin 11.5 g/dL (11.7-17.4) L 09/24/16 15:30 Hgb O2 Saturation 96.3 % (95.0-98.0) 09/26/16 10:45 Sodium 147.0 mmol/L (132-148) 09/25/16 16:50 Chloride 123.0 mmol/L (98-107) H 09/25/16 16:50 Glucose 254 mg/dl (65-105) H 09/25/16 16:50 Lactate 2.0 mmol/L (0.7-2.1) 09/25/16 16:50 Mechanical Rate 16 09/24/16 17:00 FiO2 32.0 % 09/26/16 10:45 Tidal Volume 400 09/24/16 17:00 PEEP 5 09/25/16 12:20 Sodium 138 mmol/L (132-148) 10/03/16 06:30 Potassium 3.9 mmol/L (3.6-5.0) 10/03/16 06:30 Chloride 108 mmol/L (98-107) H 10/03/16 06:30 Carbon Dioxide 24 mmol/L (21-33) 10/03/16 06:30 Anion Gap 10 (10-20) 10/03/16 06:30 BUN 16 mg/dL (7-21) 10/03/16 06:30 Creatinine 1.1 mg/dL (0.5-1.4) 10/03/16 06:30 Est GFR ( Amer) > 60 10/03/16 06:30 Est GFR (Non-Af Amer) 50 10/03/16 06:30 POC Glucose (mg/dL) 161 mg/dL (65-110) H 10/03/16 16:38 Random Glucose 157 mg/dL (70-110) H 10/03/16 06:30 Hemoglobin A1c 17.4 % (4.2-6.5) H 09/28/16 10:00 Serum Osmolality 401 mosm/kg (271-296) H 09/24/16 16:00 Calcium 7.6 mg/dL (8.4-10.5) L 10/03/16 06:30 Phosphorus 2.7 mg/dL (2.5-4.5) 09/27/16 07:00 Magnesium 1.7 mg/dL (1.7-2.2) 09/29/16 07:00 Total Bilirubin 0.6 mg/dL (0.2-1.3) 10/02/16 07:00 Direct Bilirubin 0.9 mg/dL (0.0-0.4) H 09/24/16 13:10 AST 42 U/L (15-39) H 10/02/16 07:00 ALT 27 U/L (7-56) 10/02/16 07:00 Alkaline Phosphatase 75 U/L (38-133) 10/02/16 07:00 Ammonia < 9 umol/L (9-33) L 09/24/16 15:30 Lactate Dehydrogenase 738 U/L (333-699) H 09/24/16 13:10 Total Creatine Kinase 910 U/L (35-230) H 10/01/16 09:10 CK-MB (CK-2) 0.9 ng/mL (0.0-3.6) 10/01/16 09:10 CK-MB (CK-2) % 0.2 % (2.5-3.0) L 09/27/16 05:00 Troponin I 0.05 ng/mL 09/24/16 15:30 C-React Prot High Sens > 15.00 mg/L (1.00-3.00) H 09/24/16 15:30 NT-Pro-B Natriuret Pep 1840 pg/mL (0-450) H 09/24/16 13:10 Total Protein 5.7 g/dL (5.8-8.3) L 10/02/16 07:00 Albumin 2.2 g/dL (3.0-4.8) L 10/02/16 07:00 Globulin 3.5 gm/dL 10/02/16 07:00 Albumin/Globulin Ratio 0.6 (1.1-1.8) L 10/02/16 07:00 Amylase 260 U/L (35-125) H 09/29/16 07:00 Lipase 1411 U/L (23-300) H 10/02/16 07:00 Vitamin C 0.4 mg/dL (0.2-1.5) 09/28/16 10:00 Procalcitonin 3.23 NG/ML (0.19-0.49) H 09/26/16 07:30 Arterial Blood Potassium 3.0 mmol/L (3.6-5.2) L 09/25/16 12:20 Venous Blood Potassium 4.1 mmol/L (3.6-5.2) 09/25/16 16:50 Urine Color Yellow (YELLOW) 09/24/16 14:06 Urine Appearance Clear (CLEAR) 09/24/16 14:06 Urine pH 6.0 (4.7-8.0) 09/24/16 14:06 Ur Specific [place] 1.015 (1.005-1.035) 09/24/16 14:06 Urine Protein Trace mg/dL (<30 mg/dL) H 09/24/16 14:06 Urine Glucose (UA) >=1000 mg/dL (NEGATIVE) 09/24/16 14:06 Urine Ketones Negative mg/dL (NEGATIVE) 09/24/16 14:06 Urine Blood Small (NEGATIVE) H 09/24/16 14:06 Urine Nitrate Negative (NEGATIVE) 09/24/16 14:06 Urine Bilirubin Negative (NEGATIVE) 09/24/16 14:06 Urine Urobilinogen 0.2 E.U./dL (<1 E.U./dL) 09/24/16 14:06 Ur Leukocyte Esterase Negative Jose/uL (NEGATIVE) 09/24/16 14:06 Urine RBC 0 - 2 /hpf (0-2) 09/24/16 14:06 Urine WBC 0 - 2 /hpf (0-6) 09/24/16 14:06 Ur Epithelial Cells 10 - 12 /hpf (0-5) 09/24/16 14:06 Urine Bacteria Few (NEG) 09/24/16 14:06 Urine Eosinophils Neg 09/24/16 18:00 Urine Osmolality 443 mosm/kg (50-645) 09/24/16 18:00 Ur Random Sodium 23 meq/L 09/24/16 18:00 Ur Random Potassium 31.6 meq/L 09/24/16 18:00 Urine Opiates Screen Negative (NEGATIVE) 09/24/16 14:06 Urine Methadone Screen Negative (NEGATIVE) 09/24/16 14:06 Ur Barbiturates Screen Negative (NEGATIVE) 09/24/16 14:06 Ur Phencyclidine Scrn Negative (NEGATIVE) 09/24/16 14:06 Ur Amphetamines Screen Negative (NEGATIVE) 09/24/16 14:06 U Benzodiazepines Scrn Negative (NEGATIVE) 09/24/16 14:06 U Oth Cocaine Metabols Negative (NEGATIVE) 09/24/16 14:06 U Cannabinoids Screen Negative (NEGATIVE) 09/24/16 14:06 Alcohol, Quantitative < 10 mg/dL (0-10) 09/24/16 13:10 HIV 1&2 Ag/Ab, 4th Gen Nonreactive (Nonreactive) 09/25/16 16:50 Attending/Attestation - Attestation I have personally seen and examined this patient.: Yes I have fully participated in the care of the patient.: Yes I have reviewed all pertinent clinical information, including history, physical exam and plan: Yes Notes (Text): Patient was seen and examined with medical sociologist .Agreed with resident assessment and plan. 61 year old female with past medical history of diabetes, CKD, hypertension and chronic LE venous stasis ulcers who presented with altered mental status ( resolved), HONK (resolved), and sepsis secondary to chronic LE ulcerations. Also was found to have elevated lipase and CPK levels with acute on chronic renal failure.Patient blood sugars are better controlled.She has compl;eted IV antibiotics.She is tolerating diet, has refused MRCP.She was evaluated by Physical therapy and PAN was recommended.She is going to be discharged today and will follow with PCP in Rehab. Management plan was discussed in detail with patient and family. Education was provided.
--- NOTE | 2016-10-03 16:03 | CP.PCM.PN ---
Subjective - Date & Time of Evaluation Date of Evaluation: 10/03/16 Time of Evaluation: 10:15 - Subjective Subjective: Comfortable in bed, not in distress, no fevers, less pain in the legs. Objective - Vital Signs/Intake and Output Vital Signs (last 24 hours): Temp Pulse Resp BP Pulse Ox 99.1 F 100 H 20 98/68 L 97 10/03/16 07:51 10/03/16 07:51 10/03/16 07:51 10/03/16 07:51 10/03/16 07:51 Intake and Output: 10/03/16 10/03/16 06:59 18:59 Intake Total 0 Output Total 700 Balance -700 - Medications Medications: Current Medications Acetaminophen (Tylenol 325mg Tab) 650 mg PO Q6H PRN PRN Reason: pain moderate and higher Heparin Sodium (Porcine) (Heparin) 5,000 units SC Q8H EMETERIO PRN Reason: Protocol Last Admin: 10/03/16 06:18 Dose: 5,000 units Meropenem 500 mg/ Sodium (Chloride) 100 mls @ 100 mls/hr IVPB Q12 EMETERIO PRN Reason: Protocol Stop: 10/04/16 10:01 Last Admin: 10/02/16 22:37 Dose: 100 mls/hr Insulin Human NPH (Humulin N) 20 units SC HS EMTEERIO Last Admin: 10/02/16 22:06 Dose: 20 units Insulin Human Regular (Humulin R Low) 0 units SC ACHS EMETERIO PRN Reason: Protocol Last Admin: 10/03/16 08:47 Dose: Not Given Multivitamins/Minerals (Therapeutic-M Tab) 1 tab PO DAILY EMETERIO Last Admin: 10/02/16 11:34 Dose: 1 tab Pantoprazole Sodium (Protonix Inj) 40 mg IVP DAILY EMETERIO Last Admin: 10/02/16 11:33 Dose: 40 mg Silver Sulfadiazine (Silvadene 1% 20 Gm) 1 ea TOP Q12H EMETERIO Last Admin: 10/03/16 05:30 Dose: Not Given Tramadol HCl (Ultram) 25 mg PO Q8H PRN PRN Reason: Pain, moderate (4-7) Last Admin: 09/29/16 22:16 Dose: 25 mg Vitamin A (Vitamin A & D Oint Ud Foilpak) 1 ea TOP BID EMETERIO Last Admin: 10/02/16 17:53 Dose: 1 ea - Labs Labs: 10/03/16 06:30 10/03/16 06:30 PT 12.2 Seconds (9.9-11.8) H 09/24/16 13:10 INR 1.13 (0.93-1.08) H 09/24/16 13:10 APTT 22.2 Seconds (23.7-30.8) L 09/24/16 13:10 - Constitutional Appears: Non-toxic, No Acute Distress - Head Exam Head Exam: NORMAL INSPECTION - ENT Exam ENT Exam: Mucous Membranes Moist - Neck Exam Neck Exam: absent: Lymphadenopathy, Meningismus - Respiratory Exam Respiratory Exam: Decreased Breath Sounds - Cardiovascular Exam Cardiovascular Exam: +S1, +S2 - GI/Abdominal Exam GI & Abdominal Exam: Soft. absent: Tenderness Assessment and Plan - Assessment and Plan (Free Text) Plan: Assessment severe sepsis from right leg wound with ESBL-producing multidrug resistant Klebsiella and methicillin-sensitive Staph aureus in a patient with venous stasis ulcers, with no evidence of osteomyelitis on MRI of the legs, clinically improved acute pancreatitis, etiology to be determined acute on chronic renal failure, slowly improving history of adrenal cancer lower extremity venous stasis obesity with BMI 39 DM HTN Plan on Meropenem day 7 - patient has clinically improved and we can d/c antibiotics - discussed with medical team
--- NOTE | 2016-10-03 16:39 | CP.PCM.PN ---
Subjective - Date & Time of Evaluation Date of Evaluation: 10/03/16 Time of Evaluation: 16:37 - Subjective Subjective: This is a 61 yo female patient seen at bedside this afternoon for f/u of BL leg ulcerations. Pt seen resting comfortably in bed at time of visit. Denies any acute events overnight. Does complain of some pain to the wounds of her legs today. Denies f/n/v/c/sob. Multipodus boots not on feet at time of visit. Denies any other complaints at this time. Objective - Vital Signs/Intake and Output Vital Signs (last 24 hours): Temp Pulse Resp BP Pulse Ox 99.1 F 100 H 20 98/68 L 97 10/03/16 07:51 10/03/16 07:51 10/03/16 07:51 10/03/16 07:51 10/03/16 07:51 Intake and Output: 10/03/16 10/03/16 06:59 18:59 Intake Total 0 480 Output Total 700 650 Balance -700 -170 - Medications Medications: Current Medications Acetaminophen (Tylenol 325mg Tab) 650 mg PO Q6H PRN PRN Reason: pain moderate and higher Heparin Sodium (Porcine) (Heparin) 5,000 units SC Q8H EMETERIO PRN Reason: Protocol Last Admin: 10/03/16 13:34 Dose: 5,000 units Meropenem 500 mg/ Sodium (Chloride) 100 mls @ 100 mls/hr IVPB Q12 EMETERIO PRN Reason: Protocol Stop: 10/04/16 10:01 Last Admin: 10/03/16 11:09 Dose: 100 mls/hr Insulin Human NPH (Humulin N) 20 units SC HS EMETERIO Last Admin: 10/02/16 22:06 Dose: 20 units Insulin Human Regular (Humulin R Low) 0 units SC ACHS EMETERIO PRN Reason: Protocol Last Admin: 10/03/16 12:47 Dose: Not Given Multivitamins/Minerals (Therapeutic-M Tab) 1 tab PO DAILY [facility] Last Admin: 10/03/16 11:09 Dose: 1 tab Pantoprazole Sodium (Protonix Inj) 40 mg IVP DAILY [facility] Last Admin: 10/03/16 11:09 Dose: 40 mg Silver Sulfadiazine (Silvadene 1% 20 Gm) 1 ea TOP Q12H [facility] Last Admin: 03/20/17 05:30 Dose: Not Given Tramadol HCl (Ultram) 25 mg PO Q8H PRN PRN Reason: Pain, moderate (4-7) Last Admin: 09/29/16 22:16 Dose: 25 mg Vitamin A (Vitamin A & D Oint Ud Foilpak) 1 ea TOP BID EMETERIO Last Admin: 10/03/16 11:09 Dose: 1 ea - Labs Labs: 10/03/16 06:30 10/03/16 06:30 PT 12.2 Seconds (9.9-11.8) H 09/24/16 13:10 INR 1.13 (0.93-1.08) H 09/24/16 13:10 APTT 22.2 Seconds (23.7-30.8) L 09/24/16 13:10 - Constitutional Appears: Well, Non-toxic, No Acute Distress - Extremities Exam Additional comments: Lower extremity focused exam: Dressings to legs appear c/d/i Vasc: DP 1/4 BL, PT pulses non-palpable BL, CFT < 3 sec to all digits, +3 pitting edema BL, TG runs warm to cool BL Neuro: pedal sensation diminished BL Derm: ulceration noted to anterior aspect of right leg (parada grade 1) measures 7cm x 11cm x 0.2cm measurement, wound bed 90% granular and 10% fibrotic , no probe to bone, slight serous drainage noted, no purulence, no tracking mild malodor, lichenifcation changes noted to left leg with no open wounds noted ortho: tenderness noted on palpation to right anterior leg wound - Neurological Exam Neurological Exam: Alert, Awake, Oriented x3 - Psychiatric Exam Psychiatric exam: Normal Affect, Normal Mood Assessment and Plan - Assessment and Plan (Free Text) Assessment: 61 year old female patient w/ ulceration of right leg secondary to venous stasis disease. Plan: -Pt seen and evaluated and chart reviewed -discussed in detail with attending Dr. Hill -Chart labs vitals reviewed: afebrile, WBC 10.6 -Legs cleansed bl with sterile normal saline, and dressed with xeroform, ABD, kerlix and REILLY to RLE -Multipodus boots to be worn to feet BL at all times while in bed. -c/w ABX as per ID -Podiatry will continue to follow while she remains in house.
[2016-10-03 17:18] VITALS: BP 106/70; PULSE 98; TEMP 98; O2SAT 98
--- NOTE | 2016-10-03 20:33 | PN ---
DATE: 10/03/2016 SUBJECTIVE: This patient was seen and evaluated earlier today. The patient is tolerating the diet. No complaints of abdominal pain. PHYSICAL EXAMINATION: VITAL SIGNS: Afebrile, blood pressure 106/70, pulse is 98, respirations 16. HEENT: Atraumatic, anicteric. NECK: Supple. HEART: S1, S2 heard. LUNGS: Bilateral air entry present. ABDOMEN: Soft. There is no tenderness. EXTREMITIES: Dressing present. LABORATORY DATA: Hemoglobin 8.6, hematocrit 27.8, WBC is 10.6, platelets 197, BUN 16, creatinine 1.1 . Lipase has come down to 1417. It has been showing a downward trend. IMPRESSION AND PLAN: This is a 61-year-old patient admitted with hyperosmolar nonketotic coma. The patient was found to have elevated lipase level. Ultrasound scan of the gallbladder showed gallstone s, but CBD was normal, measuring only 4 mm. The pancreatic contour of the CAT scan appeared unremark able. The patient adamantly was refusing the MRI and also EUS. Clinically, [facility] is improving[facility]. 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 The present plan is to continue to clinically follow up the patient. The patient is also follow up of the hemoglobin, hematocrit and empiric therapy with PPI. Continue to follow up the hemoglobin and hematocrit. Thank you very much for allowing us to participate in the care of the patient. Toño Morrell MD cc: [id number] TT: 10/03/2016 20:32:28 Confirmation # [id number] Dictation # [id number]
== END 2016-10-03 20:34 | DRG 871 ==
LOC: ED 12:40 → ERH 13:56 → CCU 15:09 → 2RNO 09-27 12:41 → 3RNO 10-02 21:09
PROVIDERS: ADMIT Internal Medicine; ATTEND Internal Medicine
PROC: 5A1935Z Respiratory Ventilation, Less than 24 Consecutive Hours (ICD-10-PCS; principal; 2016-09-24)
PROC: 0BH17EZ Insertion of Endotracheal Airway into Trachea, Via Natural or Artificial Opening (ICD-10-PCS; 2016-09-24)
PROC: 06HM33Z Insertion of Infusion Device into Right Femoral Vein, Percutaneous Approach (ICD-10-PCS; 2016-09-24)
PROC: 5A09357 Assistance with Respiratory Ventilation, Less than 24 Consecutive Hours, Continuous Positive Airway Pressure (ICD-10-PCS; 2016-09-25)
DX: A41.9 Sepsis, unspecified organism (principal); E11.01 Type 2 diabetes mellitus with hyperosmolarity with coma; N17.0 Acute kidney failure with tubular necrosis; J96.90 Respiratory failure, unspecified, unspecified whether with hypoxia or hypercapnia; G93.41 Metabolic encephalopathy; K85.90 Acute pancreatitis without necrosis or infection, unspecified; M62.82 Rhabdomyolysis; E87.0 Hyperosmolality and hypernatremia; J98.11 Atelectasis; C74.90 Malignant neoplasm of unspecified part of unspecified adrenal gland; L97.819 Non-pressure chronic ulcer of other part of right lower leg with unspecified severity; L97.929 Non-pressure chronic ulcer of unspecified part of left lower leg with unspecified severity; L03.115 Cellulitis of right lower limb; R65.20 Severe sepsis without septic shock; E86.0 Dehydration; E87.5 Hyperkalemia; E11.22 Type 2 diabetes mellitus with diabetic chronic kidney disease; N18.9 Chronic kidney disease, unspecified; I12.9 Hypertensive chronic kidney disease with stage 1 through stage 4 chronic kidney disease, or unspecified chronic kidney disease; E66.01 Morbid (severe) obesity due to excess calories; I87.2 Venous insufficiency (chronic) (peripheral); E11.622 Type 2 diabetes mellitus with other skin ulcer; D64.9 Anemia, unspecified; B96.1 Klebsiella pneumoniae [K. pneumoniae] as the cause of diseases classified elsewhere; B95.61 Methicillin susceptible Staphylococcus aureus infection as the cause of diseases classified elsewhere; E87.6 Hypokalemia; B35.1 Tinea unguium; K80.20 Calculus of gallbladder without cholecystitis without obstruction; Z79.4 Long term (current) use of insulin; Z68.37 Body mass index [BMI] 37.0-37.9, adult; Z91.14 Patient's other noncompliance with medication regimen